=== PATIENT | female | born 1945 | race Caucasian/White ===

== ENCOUNTER → 2018-03-05 09:23 | Outpatient (POV) | payer MEDICARE, OTHER, SELFPAY ==
[2018-03-05 09:44] VITALS: BP 128/76; PULSE 114; RESP 18; TEMP 36.2; O2SAT 97
--- NOTE | 2018-03-05 12:17 | HMH.PMCON ---
Assessment and Plan (1) Postlaminectomy syndrome Current visit: Yes Status: Chronic Category: Medical Code(s): M96.1 - Postlaminectomy syndrome, not elsewhere classified (2) Degenerative disc disease, lumbar Current visit: Yes Status: Chronic Category: Medical Code(s): M51.36 - Other intervertebral disc degeneration, lumbar region (3) Sacroiliitis Current visit: Yes Status: Chronic Category: Medical Code(s): M46.1 - Sacroiliitis, not elsewhere classified - Assessment and plan all Dx Assessment and Plan for all problems:: We will plan a bilateral SI joint injection for this patient. I believe that this would be beneficial place to start due to the patient being on anticoagulation and her pain symptomology. Patient is currently on prednisone therapy we will decrease the amount of injective steroids. We will follow-up with this patient after bilateral joint injections in determine if this is helped improve her pain or if she is a candidate for other conservative treatments. Patient has tried and failed physical therapy, medications, anti-inflammatories. I will follow-up with this patient after her injections. This note was dictated using voice recognition software and may contain errors or omissions HPI - Data of Consult Consult date: 03/05/18 Requesting Physician: Cherrie Abbott APRN Primary Care Provider: Aurelia Remy APRN Family Provider: Aurelia Remy APRN - Consult Narrative Reason for consult: Lower back pain History of present illness: Ms. De Guzman is a 72 year old female who presents today for consultation on her low back pain. Patient is status post several back surgeries. Patient had back surgery by Dr. Trent last year. Patient also had a previous kyphoplasty. Patient is currently on Plavix. She rates her pain a 7 out of 10 today. Patient states that movement increases pain while there is not much that decreases it. Patient has tried and failed physical therapy along with medications. Patient is wanting to control her pain through conservative measures. CC: Cherrie Abbott APRN [facility] History I have reviewed the patient's past medical history: Yes Medical History: Reports:: Hyperlipidemia, Hypertension, Palpitations Denies:: Cancer, Diabetes Mellitus Type 1, Diabetes Mellitus Type 2, MRSA Other Surgeries: Yes: Appendectomy, Cardiac Catheterization, Hysterectomy-Total Amputation: No Fractures: No - *Social History Educational Level: Completed High School Smoking Status: Never smoker Alcohol Intake: never Occupational Status: retired Housing: house Household Members: none - Psychiatric History Expresses thoughts of harming self/others: None Suicide Plan Description: No Plan *Family Hx:: Hyperlipidemia, Hypertension Review of Systems - Review of Systems ROS General: no recent weight change, no fever, no sleep disturbances Respiratory: no cough, no shortness of air, no recurring pulmonary infections Cardiovascular/Peripheral Vascular: No chest pain, No palpitations, no edema, no shortness of breath. Gastrointestinal: no incontinence, normal bowel movements reported Genitourinary: no incontinence Musculoskeletal: Back pain, right SI joint pain, right leg pain Psychiatric: normal mood/ affect Neurological: Intermittent weakness in right lower extremity at times., [denies balance issues] Meds Home Medications Medication Instructions Recorded Confirmed Type Aspirin [Aspir 81] 81 mg PO DAILY 03/05/18 03/05/18 History Atorvastatin Calcium [Atorvastatin 20 mg PO DAILY 03/05/18 03/05/18 History 20mg Tab] Calcium Carbonate [Calcium] 600 mg PO DAILY 03/05/18 03/05/18 History Carvedilol [Carvedilol 25mg Tab] 25 mg PO DAILY 03/05/18 03/05/18 History Cholecalciferol (Vitamin D3) 5,000 unit PO DAILY 03/05/18 03/05/18 History [Vitamin D3] Clopidogrel Bisulfate [Plavix 75mg 75 mg PO DAILY 03/05/18 03/05/18 History Tab] Fludrocortison
--- NOTE | 2018-03-05 12:20 | P.CONS_ITS ---
Assessment and Plan (1) Postlaminectomy syndrome Current visit: Yes Status: Chronic Category: Medical Code(s): M96.1 - Postlaminectomy syndrome, not elsewhere classified (2) Degenerative disc disease, lumbar Current visit: Yes Status: Chronic Category: Medical Code(s): M51.36 - Other intervertebral disc degeneration, lumbar region (3) Sacroiliitis Current visit: Yes Status: Chronic Category: Medical Code(s): M46.1 - Sacroiliitis, not elsewhere classified - Assessment and plan all Dx Assessment and Plan for all problems:: We will plan a bilateral SI joint injection for this patient. I believe that this would be beneficial place to start due to the patient being on anticoagulation and her pain symptomology. Patient is currently on prednisone therapy we will decrease the amount of injective steroids. We will follow-up with this patient after bilateral joint injections in determine if this is helped improve her pain or if she is a candidate for other conservative treatments. Patient has tried and failed physical therapy, medications, anti- inflammatories. I will follow-up with this patient after her injections. This note was dictated using voice recognition software and may contain errors or omissions HPI - Data of Consult Consult date: 03/05/18 Requesting Physician: Cherrie Abbott APRN Primary Care Provider: Aurelia Remy APRN Family Provider: Aurelia Remy APRN - Consult Narrative Reason for consult: Lower back pain History of present illness: Ms. De Guzman is a 72 year old female who presents today for consultation on her low back pain. Patient is status post several back surgeries. Patient had back surgery by Dr. Trent last year. Patient also had a previous kyphoplasty. Patient is currently on Plavix. She rates her pain a 7 out of 10 today. Patient states that movement increases pain while there is not much that decreases it. Patient has tried and failed physical therapy along with medications. Patient is wanting to control her pain through conservative measures. CC: Cherrie Abbott APRN [facility] History I have reviewed the patient's past medical history: Yes Medical History: Reports:: Hyperlipidemia, Hypertension, Palpitations Denies:: Cancer, Diabetes Mellitus Type 1, Diabetes Mellitus Type 2, MRSA Other Surgeries: Yes: Appendectomy, Cardiac Catheterization, Hysterectomy-Total Amputation: No Fractures: No - *Social History Educational Level: Completed High School Smoking Status: Never smoker Alcohol Intake: never Occupational Status: retired Housing: house Household Members: none - Psychiatric History Expresses thoughts of harming self/others: None Suicide Plan Description: No Plan *Family Hx:: Hyperlipidemia, Hypertension Review of Systems - Review of Systems ROS General: no recent weight change, no fever, no sleep disturbances Respiratory: no cough, no shortness of air, no recurring pulmonary infections Cardiovascular/Peripheral Vascular: No chest pain, No palpitations, no edema, no shortness of breath. Gastrointestinal: no incontinence, normal bowel movements reported Genitourinary: no incontinence Musculoskeletal: Back pain, right SI joint pain, right leg pain Psychiatric: normal mood/ affect Neurological: Intermittent weakness in right lower extremity at times., [denies balance issues] Meds Home Medications Medication Instructions Recorded Confirmed Type Aspirin [Aspir 81] 81 mg PO DAILY 03/05/18 03/05/18 Histor
== END ==
PROVIDERS: Family Provider Nurse Practitioner Family; PCP Nurse Practitioner Family; Visit Provider Clinical Nurse Specialist Family Health
DX: M96.1 Postlaminectomy syndrome, not elsewhere classified (principal); M46.1 Sacroiliitis, not elsewhere classified
CPT/HCPCS: 99202

== ENCOUNTER → 2018-04-16 09:02 | Outpatient (POV) | payer MEDICARE, OTHER, SELFPAY ==
[2018-04-16 09:20] VITALS: BP 147/63; PULSE 53; RESP 20; O2SAT 96; BMI 31.3
--- NOTE | 2018-04-16 11:37 | HMH.PAINSOAP ---
[facility] Pain Management SOAP Note Subjective:: Patient is a pleasant 72-year-old white female who we have been treating for low back and bilateral SI joint pain. Patient had bilateral SI joint injection. Patient did not get any relief from this. Patient has had multiple back surgeries. Patient states that her pain at this time is in her low back and radiating down bilateral legs. Patient and I discussed potential lumbar epidural steroid injection I believe that this would be beneficial. Patient's tried and failed physical therapy, medications, anti-inflammatories. Patient and I did briefly discussed neuro stimulation if her lumbar epidural does not help with her pain. ROS General: no recent weight change, no fever, no sleep disturbances Respiratory: no cough, no shortness of air, no recurring pulmonary infections Cardiovascular/Peripheral Vascular: No chest pain, No palpitations, no edema, no shortness of breath. Gastrointestinal: no incontinence, normal bowel movements reported Genitourinary: no incontinence Musculoskeletal: Back pain, bilateral leg pain Psychiatric: normal mood/ affect Neurological: [denies weakness in extremities], [denies balance issues] Objective:: Physical Exam General: Alert and oriented x3, no acute distress, pleasant and cooperative, [on room air] Lungs: Resps E/U, Symmetrical chest expansion, Eyes: PERRL Musculoskeletal: Flexion and extension of lumbar spine somewhat guarded secondary to pain, deep tendon reflexes normal, strength in upper and lower extremities [5/5], [abnormal gait noted], positive straight leg raise test positive at 30? bilaterally Neurological: speech clear, hot patcher equal, no gross sensory deficits Assessment:: Degenerative disc disease of the lumbar spine with lumbar radiculopathy, postlaminectomy syndrome Plan:: We will schedule L4-L5 lumbar epidural steroid injection for this patient. I believe that this would be beneficial in helping identify her pain pattern. Patient and I did briefly discuss neuromodulation. We will follow-up with this if she does not get relief from this injection. Patient is on Plavix we will get permission for her to be off her anticoagulation therapy prior to her injection. This note was dictated using voice recognition software and may contain errors or omissions
--- NOTE | 2018-04-16 11:41 | P.CONS_ITS ---
[facility] Pain Management SOAP Note Subjective:: Patient is a pleasant 72-year-old white female who we have been treating for low back and bilateral SI joint pain. Patient had bilateral SI joint injection. Patient did not get any relief from this. Patient has had multiple back surgeries. Patient states that her pain at this time is in her low back and radiating down bilateral legs. Patient and I discussed potential lumbar epidural steroid injection I believe that this would be beneficial. Patient's tried and failed physical therapy, medications, anti-inflammatories. Patient and I did briefly discussed neuro stimulation if her lumbar epidural does not help with her pain. ROS General: no recent weight change, no fever, no sleep disturbances Respiratory: no cough, no shortness of air, no recurring pulmonary infections Cardiovascular/Peripheral Vascular: No chest pain, No palpitations, no edema, no shortness of breath. Gastrointestinal: no incontinence, normal bowel movements reported Genitourinary: no incontinence Musculoskeletal: Back pain, bilateral leg pain Psychiatric: normal mood/ affect Neurological: [denies weakness in extremities], [denies balance issues] Objective:: Physical Exam General: Alert and oriented x3, no acute distress, pleasant and cooperative, [ on room air] Lungs: Resps E/U, Symmetrical chest expansion, Eyes: PERRL Musculoskeletal: Flexion and extension of lumbar spine somewhat guarded secondary to pain, deep tendon reflexes normal, strength in upper and lower extremities [5/5], [abnormal gait noted], positive straight leg raise test positive at 30? 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 I believe that this would be beneficial in helping identify her pain pattern. Patient and I did briefly discuss neuromodulation. We will follow-up with this if she does not get relief from this injection. Patient is on Plavix we will get permission for her to be off her anticoagulation therapy prior to her injection. This note was dictated using voice recognition software and may contain errors or omissions
--- NOTE | 2018-04-19 13:31 | PC.PHONENOTE ---
Spoke with patient regarding her lumbar epidural steroid injection scheduled for may 11. Dr Luu faxed approval for pt to discontinue her plavix 7 days prior. Pt was advised to d/c her plavix after May 03 and resume medication May 12. Pt verbalized understanding and was encouraged to call back with any questions that may arise.
== END ==
PROVIDERS: Family Provider Nurse Practitioner Family; PCP Nurse Practitioner Family; Visit Provider Clinical Nurse Specialist Family Health
DX: M54.16 Radiculopathy, lumbar region (principal)
CPT/HCPCS: 99212

== ENCOUNTER → 2018-05-29 08:35 | Outpatient (CLI) | payer MEDICARE, OTHER, SELFPAY ==
[2018-05-29 09:05] LABS: Blood Urea Nitrogen 17 mg/dL (7-18); Creatinine,Serum 1.16 mg/dL (0.55-1.02); Estimated Glomerular Filt Rate 46 ml/min (>60); GFR (African American) 56 ML/MIN (>60)
--- NOTE | 2018-05-29 10:45 | CT_ITS ---
CT abdomen pelvis w con CLINICAL INDICATION: ITS.REASON: RLQ PAIN ORDERING PHYSICIAN: Aurelia Remy PATIENT AGE: 72 years COMPARISON: None TECHNIQUE: Axial images obtained with sagittal and coronal reformats. All CT scans at the facility use one or more dose reduction, viz: automated exposure control; ma/kV adjustment per patient size (including targeted exams where dose is matched to indication; i.e. head); or iterative reconstruction technique. PROCEDURE: Oral Contrast: Redicat IV Contrast: 75 mL is Isovue-370. FINDINGS: There are mild atelectatic changes in the lung bases. There is mild thickening of the pericardium posteriorly measuring up to 11 mm. There is trace right pleural effusion. Coronary artery calcifications The liver is unremarkable. There is splenomegaly at 16 cm. Hyperdensity is noted along the posterior wall the gallbladder suggesting cholelithiasis. The adrenal glands are unremarkable. Multiple calcific densities are present in the head of the pancreas and the uncinate process region and near the ampulla. This may be related to chronic pancreatitis. Partially calcified pancreatic lesion is included in the differential diagnosis. MRI of the pancreas without and with contrast may be of further value. No renal or ureteral calculi. No hilar cyst. No intestinal obstruction or free air. No evidence of diverticulitis. Air is a metallic density with a surrounding lucency in the region of the ascending colon and may represent an ingested foreign body. This measures approximate 1 cm. There is increased density of the abdominal wall fat inferior to the umbilicus and could be related to some underlying inflammatory changes. There is an old left superior and inferior pubic ramus fracture near the symphysis with some increased soft tissue density at this region probably related to scarring. Multiple interpedicular screws are present from L2 to S2. There is been multiple vertebral plasties with multiple wedge compression changes of the lower thoracic and lumbar spine. IMPRESSION: 1. Possible cholelithiasis. 2. Splenomegaly. 3. Coarse calcifications in the head of the pancreas near the uncinate process and could be related to chronic pancreatitis. A partially calcified pancreatic lesion is an additional consideration. Follow-up recommended to confirm stability. MRI may be of further value. 4. Increased soft tissue density within the abdominal wall fat inferior to the umbilicus which may be related to underlying inflammatory change
--- NOTE | 2018-05-29 11:23 | HMH.ITSHM ---
NOXAFIL 100 MG GABAPENTIN 100 MG HYDRALAZINE 25 ATORVASTATIN CLOPIDOREL 75 MG LASIX 40 MG PANTOPROZONE SOD 40 MG PREDNISONE 10 MG FLUDROCONTISONE POTASSIUM 10 MG 2 X DAY CIPOTLOXACIN 500 MG VITAMIN D 3 CALCIUM 600 MG ASPIRIN
== END ==
PROVIDERS: Family Provider Nurse Practitioner Family; PCP Nurse Practitioner Family; Visit Provider Nurse Practitioner Family
DX: R10.31 Right lower quadrant pain (principal)
CPT/HCPCS: 36415; 74177; 82565; 84520; Q9967

== ENCOUNTER → 2018-06-04 14:25 | Outpatient (POV) | payer MEDICARE, OTHER, SELFPAY ==
[2018-06-04 14:35] VITALS: BP 142/68; PULSE 74; RESP 18; O2SAT 98; BMI 37.8
--- NOTE | 2018-06-04 15:32 | HMH.PAINSOAP ---
[facility] Pain Management SOAP Note Subjective:: Patient is a pleasant 72-year-old white female who presents today after a lumbar epidural steroid injection. Patient states that she did not get any relief from this injection. Patient's tried other injections with no relief as well. Patient and I had discussed intrathecal pain pump at one time however she is not apt to the idea of having medication in her body. Patient would like to discuss oral medication for pain management. I discussed with her we do not do medication management. Patient and I then begin a discussion on neuro stimulation. Patient and I had a long discussion in regards to this I answered all of her questions. Patient is interested in this form of therapy. I believe it would be beneficial for her. Patient rates her pain at 8 out of 10 today. Mostly in her low back and bilateral legs. Patient is on Plavix however she does have permission to come off of it for her procedures. ROS General: no recent weight change, no fever, no sleep disturbances Respiratory: no cough, no shortness of air, no recurring pulmonary infections Cardiovascular/Peripheral Vascular: No chest pain, No palpitations, no edema, no shortness of breath. Gastrointestinal: no incontinence, normal bowel movements reported Genitourinary: no incontinence Musculoskeletal: Back pain, leg pain Psychiatric: normal mood/ affect Neurological: [denies weakness in extremities], [denies balance issues] Objective:: Physical Exam General: Alert and oriented x3, no acute distress, pleasant and cooperative, [on room air] Lungs: Resps E/U, Symmetrical chest expansion, Eyes: PERRL Musculoskeletal: Flexion and extension of lumbar spine somewhat guarded secondary to pain, deep tendon reflexes normal, strength in upper and lower extremities [5/5], [abnormal gait noted], positive straight leg raise test bilaterally at 30? Neurological: speech clear, toddler teacher equal, no gross sensory deficits Assessment:: Degenerative disc disease of lumbar spine with lumbar radiculopathy and postlaminectomy syndrome. Plan:: We will begin the process of setting the patient up for a neurostimulator trial. I believe given her symptoms at this will be beneficial. Patient is uninterested in intrathecal therapy at this time and I do not believe that long-term medication use will be beneficial for her. I answered the patient's questions and we discussed realistic goal setting along with the trialing and implantation process. I will follow-up with this patient after her trial. This note was dictated using voice recognition software and may contain errors or omissions
--- NOTE | 2018-06-04 15:36 | P.CONS_ITS ---
[facility] Pain Management SOAP Note Subjective:: Patient is a pleasant 72-year-old white female who presents today after a lumbar epidural steroid injection. Patient states that she did not get any relief from this injection. Patient's tried other injections with no relief as well. Patient and I had discussed intrathecal pain pump at one time however she is not apt to the idea of having medication in her body. Patient would like to discuss oral medication for pain management. I discussed with her we do not do medication management. Patient and I then begin a discussion on neuro stimulation. Patient and I had a long discussion in regards to this I answered all of her questions. Patient is interested in this form of therapy. I believe it would be beneficial for her. Patient rates her pain at 8 out of 10 today. Mostly in her low back and bilateral legs. Patient is on Plavix however she does have permission to come off of it for her procedures. ROS General: no recent weight change, no fever, no sleep disturbances Respiratory: no cough, no shortness of air, no recurring pulmonary infections Cardiovascular/Peripheral Vascular: No chest pain, No palpitations, no edema, no shortness of breath. Gastrointestinal: no incontinence, normal bowel movements reported Genitourinary: no incontinence Musculoskeletal: Back pain, leg pain Psychiatric: normal mood/ affect Neurological: [denies weakness in extremities], [denies balance issues] Objective:: Physical Exam General: Alert and oriented x3, no acute distress, pleasant and cooperative, [ on room air] Lungs: Resps E/U, Symmetrical chest expansion, Eyes: PERRL Musculoskeletal: Flexion and extension of lumbar spine somewhat guarded secondary to pain, deep tendon reflexes normal, strength in upper and lower extremities [5/5], [abnormal gait noted], positive straight leg raise test bilaterally at 30? 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 Plan:: We will begin the process of setting the patient up for a neurostimulator trial. I believe given her symptoms at this will be beneficial. Patient is uninterested in intrathecal therapy at this time and I do not believe that long- term medication use will be beneficial for her. I answered the patient's questions and we discussed realistic goal setting along with the trialing and implantation process. I will follow-up with this patient after her trial. This note was dictated using voice recognition software and may contain errors or omissions
== END ==
PROVIDERS: Family Provider Nurse Practitioner Family; PCP Nurse Practitioner Family; Visit Provider Clinical Nurse Specialist Family Health
DX: M54.16 Radiculopathy, lumbar region (principal)
CPT/HCPCS: 99212

== ENCOUNTER → 2018-06-11 07:37 | Outpatient (CLI) | payer MEDICARE, OTHER, SELFPAY ==
--- NOTE | 2018-06-11 08:30 | US_ITS ---
US abdomen limited History:Right-sided abdominal pain, history of gallstone Ordering Physician:Aurelia Remy Patient Age: 72 years Comparison:67 and (05/29/2018 Findings:The pancreas appears normal. The liver is normal in size and shows a few scattered areas of ill-defined increased echogenicity suggesting fatty infiltration. The gallbladder is normal in size showing a mildly thickened wall. There is a small partially calcified gallstone near the neck of the gallbladder. The common bile duct is normal caliber. Right Kidney measures 8.6 x 4.6 x 6.1 cm. There is a good cortical medullary junction with no hydronephrosis. :Impression:Cholelithiasis along with mild diffuse thickening gallbladder wall likely due to some degree of chronic cholecystitis.
== END ==
PROVIDERS: Family Provider Nurse Practitioner Family; PCP Nurse Practitioner Family; Visit Provider Nurse Practitioner Family
DX: R10.9 Unspecified abdominal pain (principal); K80.20 Calculus of gallbladder without cholecystitis without obstruction
CPT/HCPCS: 76705

== ENCOUNTER → 2018-07-03 08:30 | Outpatient (CLI) | payer MEDICARE, OTHER, SELFPAY ==
--- NOTE | 2018-07-03 08:32 | MR_ITS ---
MR abdomen wo con, MRCP HISTORY: Pancreatitis, abnormal abdomen CT with calcification in the head of the pancreas versus ductal calcification. Cholelithiasis ITS.REASON: ACUTE PANCREAITIS ORDERING PHYSICIAN: Arash Newman MD PATIENT AGE: 72 years Comparison: None TECHNIQUE: Standard multiplanar multiecho sequences are performed without contrast. MRCP reformatted images also generated and reviewed FINDINGS: Motion artifact somewhat obscures fine detail. Small stones are present within the gallbladder. No ductal dilatation. No common duct stones evident. Pancreatic duct is normal in size. There are some small punctate areas of increased T2 signal within the pancreatic head inferiorly in the region of the previously described calcifications suggesting small cystic areas. This is a question clinical significance. Recommend [address] follow-up to confirm stability. IMPRESSION: 1. Cholelithiasis. 2. No evidence of common bile duct or pancreatic duct stones, strictures, or dilatation. 3. Small cyst noted in the head of the pancreas in the region of the previously described calcification on the CT scan. This is nonspecific. [address] recommended without and with contrast with pancreatic protocol. Cystic pancreatic neoplasm is not excluded. This could also be sequela from prior pancreatitis.
[2018-07-03 11:30] LABS: Basophils % 0.7 % (0.1-2.0); Eosinophils # 0.1 K/mm3 (0.0-0.4); Eosinophils % 1.7 % (0.1-12.0); Hematocrit 37.7 % (37.0-47.0); Hemoglobin 11.7 g/dL (12.2-16.2); Lymphocytes # 1.2 K/mm3 (0.7-4.5); Lymphocytes % 18.4 K/mm3 (10-50); Mean Corpuscular Volume 80.7 fl (81-99); Mean Platelet Volume 6.7 fl (7.4-10.4); Monocytes # 0.5 K/mm3 (0.1-1.0); Monocytes % 7.6 % (1.7-9.3); Neutrophils # 4.6 K/mm3 (1.8-7.8); Neutrophils % 71.7 % (37.0-80.0); Platelet Count 208 K/mm3 (142-424); Red Blood Count 4.67 M/mm3 (4.20-5.40); Red Cell Distribution Width 18.8 % (11.5-17.5); White Blood Count 6.5 K/mm3 (4.8-10.8)
[2018-07-03 13:00] LABS: Alanine Aminotransferase 26 U/L (12-78); Albumin Level 3.4 gm/dL (3.4-5.0); Albumin/Globulin Ratio 1.4 (1.1-1.8); Alkaline Phosphatase 71 U/L (46-116); Anion Gap 6.4 mEq/L (5-15); Aspartate Amino Transferase 16 U/L (15-37); Bilirubin,Total 0.6 mg/dL (0.2-1.0); Blood Urea Nitrogen 19 mg/dL (7-18); Calcium 8.5 mg/dL (8.5-10.1); Carbon Dioxide 33 mmol/L (21.0-32.0); Chloride 108 mmol/L (98-107); Creatinine,Serum 1.02 mg/dL (0.55-1.02); Estimated Glomerular Filt Rate 53 ml/min (>60); GFR (African American) 64 ML/MIN (>60); Globulin 2.4 gm/dl (1.3-3.2); Glucose 93 mg/dL (74-106); Potassium 3.4 mmoL/L (3.5-5.1); Sodium 144 mmol/L (136-145); Total Protein,Serum 5.8 gm/dL (6.4-8.2)
== END ==
PROVIDERS: Family Provider Nurse Practitioner Family; PCP Nurse Practitioner Family; Visit Provider Surgery
DX: K86.1 Other chronic pancreatitis (principal)
CPT/HCPCS: 36415; 74181; 76376; 80053; 85025; 93005

== ENCOUNTER → 2018-07-31 10:23 | Outpatient (CLI) | payer MEDICARE, OTHER, SELFPAY ==
[2018-08-02 16:21] LABS: Histoplasma Gal'mannan Ag Ur <0.5 (<0.5 ng/mL)
== END ==
PROVIDERS: PCP Nurse Practitioner Family; Visit Provider Internal Medicine Infectious Disease
DX: B39.9 Histoplasmosis, unspecified (principal)
CPT/HCPCS: 87385

== ENCOUNTER → 2018-09-11 10:25 | Outpatient (POV) | payer MEDICARE, OTHER, SELFPAY ==
[2018-09-11 10:36] VITALS: BP 193/92; PULSE 64; RESP 18; O2SAT 94; BMI 30.5
--- NOTE | 2018-09-11 12:18 | P.CONS_ITS ---
[facility] Pain Management SOAP Note Subjective:: She is a pleasant 72-year-old white female who presents today for discussion in regards to a intrathecal pain pump. Patient had at first wanted to try a neurostimulator. However due to recent changes in her pain pattern she would like to try a intrathecal pain pump. Patient has extensive hardware in her back. Patient is not on any narcotic medication except for some hydrocodone she received after gallbladder surgery. Patient's tried and failed injections, physical therapy, medications. She rates her pain an 8 out of 10 today mostly in her low back. ROS General: no recent weight change, no fever, no sleep disturbances Respiratory: no cough, no shortness of air, no recurring pulmonary infections Cardiovascular/Peripheral Vascular: No chest pain, No palpitations, no edema, no shortness of breath. Gastrointestinal: no incontinence, normal bowel movements reported Genitourinary: no incontinence Musculoskeletal: Back pain, leg pain Psychiatric: normal mood/ affect, Neurological: [denies weakness in extremities], [denies balance issues] Objective:: Physical Exam General: Alert and oriented x3, no acute distress, pleasant and cooperative, [on room air] Lungs: Resps E/U, Symmetrical chest expansion, Eyes: PERRL Musculoskeletal: Flexion and extension of lumbar spine somewhat guarded secondary to pain, deep tendon reflexes normal, strength in upper and lower extremities [5/5], [abnormal gait noted] Neurological: speech clear, surface hydrologist equal, no gross sensory deficits Assessment:: Degenerative disc disease lumbar spine with lumbar radiculopathy, post laminectomy syndrome lumbar spine Plan:: We will set her up for psychological evaluation. If she is deemed appropriate we will set her up for intrathecal pain pump trial. This note was dictated using voice recognition software and may contain errors or omissions
== END ==
PROVIDERS: Family Provider Nurse Practitioner Family; PCP Nurse Practitioner Family; Visit Provider Clinical Nurse Specialist Family Health
DX: M51.16 Intervertebral disc disorders with radiculopathy, lumbar region (principal); M96.1 Postlaminectomy syndrome, not elsewhere classified
CPT/HCPCS: 99212

== ENCOUNTER → 2018-10-16 10:18 | Outpatient (POV) | payer MEDICARE, OTHER, SELFPAY ==
[2018-10-16 10:36] VITALS: BP 122/55; PULSE 70; RESP 18; O2SAT 98; BMI 30.5
--- NOTE | 2018-10-16 10:46 | HMH.PAINSOAP ---
[facility] Pain Management SOAP Note Subjective:: Patient is a pleasant 73-year-old white female who presents today for follow-up after her intrathecal pain pump trial. She states she got 90% relief of her pain symptoms and was much more functional. She had no itching and did very well. Patient states that most of her pain is in her low back and her legs. Patient is interested in pursuing a permanent implant. ROS General: no recent weight change, no fever, no sleep disturbances Respiratory: no cough, no shortness of air, no recurring pulmonary infections Cardiovascular/Peripheral Vascular: No chest pain, No palpitations, no edema, no shortness of breath. Gastrointestinal: no incontinence, normal bowel movements reported Genitourinary: no incontinence Musculoskeletal: Back pain, leg pain Psychiatric: normal mood/ affect Neurological: [denies weakness in extremities], [denies balance issues] Objective:: Physical Exam General: Alert and oriented x3, no acute distress, pleasant and cooperative, [on room air] Lungs: Resps E/U, Symmetrical chest expansion, Eyes: PERRL Musculoskeletal: Flexion and extension of lumbar spine somewhat guarded secondary to pain, deep tendon reflexes normal, strength in upper and lower extremities [5/5], [abnormal gait noted] Neurological: speech clear, legal service specialist equal, no gross sensory deficits Assessment:: Degenerative disc disease lumbar spine with lumbar radiculopathy symptoms and post laminectomy syndrome of the lumbar spine Plan:: The patient has a stress test on Monday that she is getting complete prior to scheduling her. Patient is on Plavix we do have permission for her to come off her procedures. Patient is aware of this. Patient feels that she can be much more functional with this intrathecal pain pump. Patient's catheter was placed at the T12 vertebral body. I will follow-up with her after her implantation. This note was dictated using voice recognition software and may contain errors or omissions
== END ==
PROVIDERS: PCP Nurse Practitioner Family; Visit Provider Clinical Nurse Specialist Family Health
DX: M51.16 Intervertebral disc disorders with radiculopathy, lumbar region (principal); M96.1 Postlaminectomy syndrome, not elsewhere classified
CPT/HCPCS: 99213

== ENCOUNTER → 2019-01-08 08:28 | Outpatient (CLI) | payer MEDICARE, OTHER, SELFPAY ==
[2019-01-08 08:58] LABS: Blood Urea Nitrogen 38 mg/dL (7-18); Creatinine,Serum 1.65 mg/dL (0.55-1.02); Estimated Glomerular Filt Rate 30 ml/min (>60); GFR (African American) 37 ML/MIN (>60)
== END ==
PROVIDERS: Visit Provider Surgery
DX: K86.1 Other chronic pancreatitis (principal)
CPT/HCPCS: 36415; 82565; 84520

== ENCOUNTER → 2019-01-08 09:49 | Outpatient (POV) | payer MEDICARE, OTHER, SELFPAY ==
[2019-01-08 10:12] VITALS: BP 103/66; PULSE 70; RESP 18; O2SAT 99; BMI 31.3
--- NOTE | 2019-01-08 11:27 | P.PCN_ITS ---
- Procedure Date: 01/08/19 Time: 10:30 Anesthesiologist:: Cherrie Abbott APRN Complications:: None Pre-procedure Diagnosis:: Degenerative disc disease lumbar spine with lumbar radiculopathy Post-procedure Diagnosis:: Same Indications for Procedure:: Patient is a very pleasant 73-year-old white female who presents today for follow-up after intrathecal pain pump implant. She is doing extremely well at this time however she has recently broken her foot. Patient is being taken care of with this however her back pain is minimal she rates it a 3 out of 10. Patient currently on morphine 0.25 mg a day. We will set of her PTC. There are no sign symptoms of infection. We will keep her stitches in for 1 more week. ROS General: no recent weight change, no fever, no sleep disturbances Respiratory: no cough, no shortness of air, no recurring pulmonary infections Cardiovascular/Peripheral Vascular: No chest pain, No palpitations, no edema, no shortness of breath. Gastrointestinal: no incontinence, normal bowel movements reported Genitourinary: no incontinence Musculoskeletal: Back pain at times, foot pain Psychiatric: normal mood/ affect Neurological: [denies weakness in extremities], [denies balance issues] Procedure Details:: Informed consent was obtained and the risk and benefits of the procedure were explained to the patient. The patient was taken to the procedure room where noninvasive monitoring was placed including noninvasive blood pressure cuff and pulse oximeter. Patient's pump was interrogated. The infusion rate was left at 0.25 mg/day and her PTC was started on at 0.02 mg every 6 hours as needed. The patient tolerated the procedure well. Plan and Disposition:: We will follow-up with the patient in 1 week and reassess her symptoms at that time. Patient is going to continue with her carbide tool maker in regards to her foot. We will remove her stitches at her next visit. Dr. Tijerina has reviewed this note and agrees with this plan of care. This note was dictated using voice recognition software and may contain errors or omissions
== END ==
PROVIDERS: PCP Nurse Practitioner Family; Visit Provider Clinical Nurse Specialist Family Health
DX: M51.16 Intervertebral disc disorders with radiculopathy, lumbar region (principal)
CPT/HCPCS: 36415; 62368; 82565; 84520

== ENCOUNTER 2019-01-24 10:43 | Inpatient (IN) ==
--- NOTE | 2019-01-24 10:39 | Emergency Department Note ---
ED Disposition Clinical Impression: Acute renal failure, Bladder outlet obstruction, Hyperkalemia Disposition: Admitted as Observation Condition on Discharge: Good Time of Disposition: 12:12 - Critical Care Critical Care Time: No Attestation: On , the high probability of a clinically significant, sudden or life threatening deterioration of the following system(s) required my full and direct attention, intervention and personal management. The time I documented below is in addition to time spent performing reported procedures but includes the following listed in this critical care notation. Medical Decision Making - Armani Inquiry Pt receiving controlled substance: No Armani was queried for this patient: No Vital Signs: 01/24/19 10:26 01/24/19 10:45 01/24/19 12:14 Temperature 97.7 F 97.7 F Temperature Source Rectal Rectal Pulse Rate Pulse Rate [Right Brachial] 121 H 121 H 82 Respiratory Rate 19 19 Blood Pressure Blood Pressure [Right Arm] 109/47 L 109/47 L 121/56 L Blood Pressure Mean [Right Arm] 67 67 77 Blood Pressure Source Blood Pressure Source [Right Arm] Automatic Cuff Automatic Cuff Automatic Cuff Blood Pressure Position Blood Pressure Position [Right Arm] Sitting 02 Sat by Pulse Oximetry 98 98 95 Oxygen Delivery Method Room Air Room Air 01/24/19 13:02 01/24/19 13:08 01/24/19 13:25 Temperature 97.7 F 98.7 F Temperature Source Rectal Oral Pulse Rate 100 H Pulse Rate [Right Brachial] 74 Respiratory Rate 18 18 Blood Pressure 100/56 L Blood Pressure [Right Arm] 98/58 L Blood Pressure Mean [Right Arm] 71 Blood Pressure Source Automatic Cuff Blood Pressure Source [Right Arm] Manual Cuff/ Auscultation Blood Pressure Position Sitting Blood Pressure Position [Right Arm] Supine 02 Sat by Pulse Oximetry 96 Oxygen Delivery Method Room Air Room Air Room Air - Lab Data Lab results reviewed: Yes: I reviewed the patient's lab results. Lab Results 01/24/19 10:19: POC Glucose 115 H 01/24/19 10:20: WBC 9.7, RBC 3.43 L, Hgb 10.3 L, Hct 31.9 L, MCV 93.0, MCH 29.9, MCHC 32.2, RDW 15.9, Plt Count 256, MPV 7.4, Neut % (Auto) 78.7, Lymph % (Auto) 13.1, [place] % (Auto) 4.3, Eos % (Auto) 3.3, Baso % (Auto) 0.5, Neut # (Auto) 7.7, Lymph # (Auto) 1.3, [place] # (Auto) 0.4, Eos # (Auto) 0.3, Baso # (Auto) 0.1 01/24/19 10:20: Sodium 136, Potassium 5.9 H, Chloride 103, Carbon Dioxide 22, Anion Gap 16.9 H, BUN 95 H, Creatinine 4.92 H, Estimated Creat Clear 11, Estimated GFR 9 L*, Est GFR ( Amer) 10 L*, Glucose 102, Calcium 8.6, Magnesium 2.3 H, Total Bilirubin 0.8, AST 19, ALT 19, Alkaline Phosphatase 134 H , Total Protein 5.9 L, Albumin 2.6 L, Globulin 3.3 H, Albumin/Globulin Ratio 0.8 L 01/24/19 10:20: Lactate 0.8 01/24/19 10:34: Urine Color Yellow, Urine Appearance Clear, Urine pH 6.0, Ur Specific [place] <= 1.005, Urine Protein Negative, Urine Glucose (UA) Negative, Urine Ketones Negative, Urine Blood 2+, Urine Nitrate Negative, Urine Bilirubin Negative, Urine Urobilinogen 0.2, Ur Leukocyte Esterase Negative, Urine RBC 5- 10, Urine WBC None, Urine Bacteria 1+ Result diagrams: 01/27/19 06:35 01/27/19 06:35 Orders (Tests/Meds): ED MEDICATIONS Discontinued Medications Generic Name Dose Route Start Last Admin Trade Name Freq PRN Reason Stop Dose Admin Acetaminophen 650 mg 01/24/19 13:32 Acetaminophen 325mg Tab PO 02/23/19 13:31 Q4HP PRN As Needed for Fever or Pain Hydrocodone Bitart/Acetaminophen 1 tab 01/25/19 15:36 01/28/19 10:55 Boswell 5/325mg Tablet PO 02/24/19 15:35 1 tab Q4HP PRN Administration Moderate Pain Amiodarone HCl 200 mg 01/26/19 09:00 01/28/19 08:43 Cordarone 200mg Tablet PO 02/25/19 08:59 200 mg DAILY KIM Administration Aspirin 81 mg 01/25/19 09:00 01/28/19 08:44 Aspirin 81mg Enteric Coated Tablet PO 02/24/19 08:59 81 mg DAILY KIM Administration Atorvastatin Calcium 20 mg 01/25/19 09:00 01/28/19 08:44 Lipitor 20mg Tablet PO 02/24/19 08:59 20 mg DAILY KIM Administration Carvedilol 25 mg 01/25/19 09:00 01/25/19 09:51 Coreg 25mg Tablet PO 02/24/19 08:59 25 mg DAILY KIM Administration Carvedilol 12.5 mg 01/26/19 09:00 01/28/19 08:44 Coreg 12.5mg Tablet PO 02/25/19 08:59 12.5 mg BID KIM Administration Clopidogrel Bisulfate 75 mg 01/25/19 09:00 01/28/19 08:44 Plavix 75mg Tablet PO 02/24/19 08:59 75 mg DAILY KIM Administration Fludrocortisone Acetate 0.1 mg 01/25/19 09:00 01/28/19 08:44 Florinef 0.1mg Tablet PO 02/24/19 08:59 0.1 mg DAILY KIM Administration Furosemide 40 mg 01/24/19 13:32 Lasix 40mg Tablet PO 02/23/19 13:31 NEEDED PRN fluid Gabapentin 600 mg 01/24/19 13:32 01/25/19 13:17 Neurontin 600mg Tablet PO 02/23/19 13:31 600 mg TID KIM Administration Gabapentin 800 mg 01/25/19 21:00 01/28/19 08:44 Neurontin 400mg Capsule PO 02/24/19 20:59 800 mg TID KIM Administration Hydralazine HCl 25 mg 01/24/19 21:00 Hydralazine Hcl 25mg Tablet PO 02/23/19 20:59 BID KIM Levofloxacin/Dextrose 750 mg in 150 mls @ 100 mls/hr 01/24/19 13:45 01/24/19 15:04 Levofloxacin 750mg/150ml Premix IV 01/24/19 15:14 100 mls/hr ONCE ONE Administration Protocol Levofloxacin/Dextrose 500 mg in 100 mls @ 100 mls/hr 01/26/19 11:00 Levaquin 500mg/100ml Premix IV 02/09/19 10:59 Q48H KIM Protocol Sodium Chloride 1,000 mls @ 100 mls/hr 01/24/19 14:30 01/28/19 08:43 Sod Chlor 0.9% 1000ml Bag IV 02/23/19 14:29 100 mls/hr .Q10H KIM Administration Levofloxacin/Dextrose 500 mg in 100 mls @ 100 mls/hr 01/25/19 17:45 01/25/19 18:31 Levaquin 500mg/100ml Premix IV 02/08/19 17:44 100 mls/hr Q48H KIM Administration Protocol Levofloxacin/Dextrose 500 mg in 100 mls @ 100 mls/hr 01/27/19 18:00 Levaquin 500mg/100ml Premix IV 02/10/19 17:59 Q48H KIM Protocol Levofloxacin/Dextrose 500 mg in 100 mls @ 100 mls/hr 01/27/19 18:00 01/27/19 17:26 Levaquin 500mg/100ml Premix IV 02/10/19 17:59 100 mls/hr Q24H KIM Administration Protocol Lactulose 20 gm 01/25/19 15:36 Chronulac 20gm/30ml Udc PO 02/24/19 15:35 DAILYP PRN Constipation Levothyroxine Sodium 25 mcg 01/25/19 09:00 01/28/19 08:44 Synthroid 25mcg (0.025mg) Tablet PO 02/24/19 08:59 25 mcg DAILY KIM Administration Lisinopril 5 mg 01/25/19 09:00 Zestril 5mg Tablet PO 02/24/19 08:59 DAILY KIM Multivitamins 1 each 01/26/19 09:00 01/28/19 08:44 Multi-Vitamin Plain PO 02/25/19 08:59 1 each DAILY KIM Administration Pt's Own Med 5 mg 01/25/19 21:00 01/28/19 08:43 Apixaban [Eliquis] 5 PO 02/24/19 20:59 5 mg Mg Tab BID KIM Administration Ondansetron HCl 4 mg 01/25/19 16:00 01/26/19 22:44 Zofran 4mg Odt SL 02/24/19 15:59 4 mg Q6HP PRN Administration Nausea And Vomiting Pantoprazole Sodium 40 mg 01/26/19 09:00 01/28/19 08:45 Protonix 40mg Tablet PO 02/25/19 08:59 40 mg DAILY KIM Administration Prednisone 10 mg 01/25/19 09:00 01/28/19 08:45 Deltasone 10mg Tablet PO 02/24/19 08:59 10 mg DAILY KIM Administration Senna/Docusate Sodium 1 tab 01/25/19 21:00 01/28/19 08:45 Senokot-S Tablet PO 02/24/19 20:59 1 tab BID KIM Administration Sodium Chloride 10 ml 01/24/19 10:46 Saline Flush 10ml Syringe IV 02/23/19 10:45 NEEDED PRN Maintain IV Site Sodium Chloride 10 ml 01/24/19 13:32 Saline Flush 10ml Syringe IV 02/23/19 10:45 NEEDED PRN Maintain IV Site Sodium Chloride 10 ml 01/24/19 14:30 Saline Flush 10ml Syringe IV 02/23/19 14:29 NEEDED PRN Maintain IV Site Sodium Chloride 3 ml 01/26/19 02:30 01/26/19 09:36 Sodium Chloride 3% 15ml Neb IH 02/25/19 02:29 3 ml ONCE PRN Administration INDUCE SPUTUM COLLECTION ORDERS Category Date Time Status Blood Culture Stat Micro 01/24/19 10:20 Results General Adult HPI - General Chief complaint: Altered Mental Status Stated complaint: ams Time Seen by Provider: 01/24/19 10:36 Mode of Arrival: EMS Limitations: No Limitations Description of Symptoms (Recalled from ER Triage Doc. by RN): brought in for evaluation of altered mental status. noted that patient hasn't voided since last night and answers all questions appropriately with a gcs of 15. nih 0. left lower extremity external fixator in place for s/p surgical repair of lle. pt is in me for rehab and dressings for this. normally independent at home - Related Data Home Medications Medication Instructions Recorded Confirmed RX: Aspirin [Aspir 81] 81 mg PO BID 03/05/18 01/25/19 RX: Atorvastatin Calcium 20 mg PO HS 03/05/18 01/25/19 [Atorvastatin 20mg Tab] RX: Calcium Carbonate [Calcium] 600 mg PO DAILY 03/05/18 01/24/19 RX: Carvedilol [Carvedilol 25mg 25 mg PO BID 03/05/18 01/25/19 Tab] RX: Clopidogrel Bisulfate [Plavix 75 mg PO DAILY 03/05/18 01/24/19 75mg Tab] RX: Fludrocortisone Acetate 0.1 mg PO HS 03/05/18 01/25/19 [Florinef 0.1mg tablet] RX: Furosemide [Furosemide 40MG 40 mg PO BID 03/05/18 01/25/19 tAB] RX: Hydralazine HCl [Hydralazine 25 mg PO BID 03/05/18 01/24/19 HCl 25mg Tablet] RX: predniSONE [Deltasone 10mg 10 mg PO DAILY 03/05/18 01/24/19 tablet] RX: Levothyroxine Sodium 25 mcg PO DAILY 09/11/18 01/24/19 [Levothyroxine 25mcg (0.025mg) Tab] RX: Lisinopril [Lisinopril 5mg 5 mg PO DAILY 10/05/18 01/24/19 Tablet] RX: Acetaminophen [Acetaminophen 1,000 mg PO Q6HP PRN 01/25/19 01/25/19 Extra Strength] RX: Amiodarone HCl [Cordarone 200 mg PO DAILY 01/25/19 01/25/19 200mg tablet] RX: Apixaban [Eliquis] 5 mg PO BID 01/25/19 01/25/19 RX: Ferrous Sulfate [Ferrousul] 325 mg PO DAILY 01/25/19 01/25/19 RX: Gabapentin 800 mg PO TID 01/25/19 01/25/19 RX: Hydrocod/Acet 5/325 mg [[place] 1 tab PO Q4HP PRN 01/25/19 01/25/19 5/325mg tablet] RX: Lactulose [Lactulose 20gm/30ml 20 gm PO DAILYP PRN 01/25/19 01/25/19 Oral Soln] RX: Multivitamin [One Daily] 1 each PO DAILY 01/25/19 01/25/19 RX: Ondansetron HCl [Zofran 4mg 4 mg PO Q6HP PRN 01/25/19 01/25/19 Tab] RX: Pantoprazole Sodium [Protonix 40 mg PO DAILY 01/25/19 01/25/19 40mg tablet] RX: Sennosides/Docusate Sodium 1 each PO BID 01/25/19 01/25/19 [Senna Plus Tablet] Previous Rx's Medication Instructions Recorded levoFLOXacin [Levaquin 500mg 500 mg PO DAILY #7 tab 01/28/19 tab] Allergies Allergy/AdvReac Type Severity Reaction Status Date / Time No Known Allergies Allergy Verified 12/26/18 08:52 [facility] History - Hepatitis A Screen Drug use history?: No High risk sexual behaviors?: No History of sexually transmitted infection?: No Currently employed?: No Childcare worker?: No Do you have indoor plumbing?: Yes Do you have electricity?: Yes Attestation statement:: This patient has been screened for Hepatitis A risk factors. I have reviewed the patient's past medical history: Yes Medical History: Reports:: Coronary Artery Disease, Gastroesophageal Reflux Disease(GERD), Hyperlipidemia, Hypertension, Palpitations Denies:: Cancer, Diabetes Mellitus Type 1, Diabetes Mellitus Type 2, Internal Pacemaker, MRSA, Seizures Other Medical History: Denies: Blood Transfusion Reaction Comment: Illness-chronic back pain, hypertension hyperlipidemia Other Surgeries: Yes: Appendectomy, Cardiac Catheterization, Cholecystectomy, Hysterectomy-Total, Other (back surgery x5, right ankle x3). No: Pacemaker Amputation: No Fractures: Yes Comment: Operations-cholectomy, appendectomy, hysterectomy cardiac cath, lumbar laminectomy - Social History Smoking Status: Never smoker Alcohol Intake: never Substance Use Type: denies use Occupational Status: retired Housing: house Household Members: none - Psychiatric History Expresses thoughts of harming self/others: None Suicide Plan Description: No Plan Family Hx:: Hyperlipidemia, Hypertension ROS Obtained: Yes All systems reviewed & no additional complaints - Constitutional Constitutional: Reports system reviewed and no additional complaints, except as docu, Denies chills, Denies fever(s) - Eyes Eyes: Reports system reviewed and no additional complaints, except as docu, Denies change in vision - ENT Ears, Nose, Mouth, and Throat: Reports system reviewed and no additional complaints, except as docu, Denies sore throat, Denies throat swelling - Cardiovascular Cardiovascular: Denies chest pain, Denies chest pain at rest, Denies chest pain with activity, Denies dyspnea, Denies dyspnea on exertion - Respiratory Respiratory: Yes system reviewed and no additional complaints, except as docu, No chest congestion, No cough, No dyspnea on exertion - Gastrointestinal Gastrointestingal: Reports: system reviewed and no additional complaints, except as docu, abdominal pain, nausea. Denies: diarrhea, vomiting - Genitourinary Male Genitourinary: Reports system reviewed and no additional complaints, except as docu Female Genitourinary: Reports pelvic pain (severe retention) - Musculoskeletal Musculoskeletal: Reports system reviewed and no additional complaints, except as docu, Reports muscle aches - Integumentary/Breasts Skin/Breast: Reports system reviewed and no additional complaints, except as docu, Reports wounds - Neurologic Neurologic: Reports system reviewed and no additional complaints, except as docu, Reports seizure-like activity, Denies weakness - Endocrine Endocrine: Reports system reviewed and no additional complaints, except as docu Physical Exam - General General appearance: alert, in no apparent distress - Head Head exam: atraumatic, normocephalic, normal inspection - Eye Eye exam: Present: normal appearance, PERRL, EOMI - ENT ENT exam: Present: normal exam, normal oropharynx, mucous membranes moist, TM's normal bilaterally, normal external ear exam - Neck Neck exam: Present: normal inspection, full ROM, trachea midline. Absent: meningismus, lymphadenopathy - Chest Chest inspection: Present: normal inspection, symmetric chest wall rise. Absent: tenderness - Respiratory Respiratory exam: Present: normal lung sounds bilaterally. Absent: respiratory distress - Cardiovascular Cardiovascular exam: Present: regular rate, normal rhythm - Abdominal Exam Abdominal exam: Present: soft, distention, tenderness. Absent: guarding, rebound, rigidity - Extremities Exam Extremities exam: Present: other - Back Exam Back exam: Present: normal inspection. Absent: tenderness - Neurological Exam Neurological exam: Present: alert, other (here in ED yes) - Psychiatric Psychiatric exam: Absent: flat affect - Skin Skin exam: Present: warm, dry, other (ex fix on left tib fib, surgical R patellar)
[2019-01-24 10:42] LABS: Microscopic, Urine URINE MICROSCOPIC (MICROSCOPIC)
[2019-01-24 10:44] LABS: Appearance,Urine CLEAR (Clear); Bilirubin,Urine Negative (Negative); Blood, Urine 2+ (Negative); Color,Urine YELLOW (Yellow); Glucose,Urine (UA) Negative (Negative); Ketones,Urine Negative (Negative); Leukocyte Esterase,Urine Negative (Negative); Protein,Urine Negative (Negative); Specific Gravity, Urine <= 1.005 (1.005-1.030); Urobilinogen,Urine 0.2 EU/dl (0.2)
[2019-01-24 10:49] LABS: Basophils # 0.1 K/mm3 (0-0.2); Basophils % 0.5 % (0.1-2.0); Eosinophils # 0.3 K/mm3 (0.0-0.4); Eosinophils % 3.3 % (0.1-12.0); Hematocrit 31.9 % (37.0-47.0); Hemoglobin 10.3 g/dL (12.2-16.2); Lymphocytes # 1.3 K/mm3 (0.7-4.5); Lymphocytes % 13.1 % (10-50); Mean Corpuscular HGB Conc 32.2 g/dL (31.8-35.4); Mean Corpuscular Hemoglobin 29.9 pg (27.0-31.2); Mean Platelet Volume 7.4 fl (7.4-10.4); Monocytes # 0.4 K/mm3 (0.1-1.0); Monocytes % 4.3 % (1.7-9.3); Neutrophils # 7.7 K/mm3 (1.8-7.8); Neutrophils % 78.7 % (37.0-80.0); Platelet Count 256 K/mm3 (142-424); Red Blood Count 3.43 M/mm3 (4.20-5.40); Red Cell Distribution Width 15.9 % (11.5-17.5); White Blood Count 9.7 K/mm3 (4.8-10.8)
[2019-01-24 10:53] LABS: Bacteria,Urine 1+ /lpf
[2019-01-24 11:17] LABS: Albumin Level 2.6 gm/dL (3.4-5.0); Albumin/Globulin Ratio 0.8 (1.1-1.8); Anion Gap 16.9 mEq/L (5-15); Bilirubin,Total 0.8 mg/dL (0.2-1.0); Calcium 8.6 mg/dL (8.5-10.1); Globulin 3.3 gm/dl (1.3-3.2); Potassium 5.9 mmoL/L (3.5-5.1); Total Protein,Serum 5.9 gm/dL (6.4-8.2)
--- NOTE | 2019-01-24 17:09 | History & Physical Report ---
*Admission Date: 01/24/19 *Chief complaint: confusion, weakness *History of present illness: 73 year old female who recently had left ankle repair with placement of external fixator following back to back falls which also resulted in right patellar fracture/laceration who has been at [facility] for rehab was transported to [facility] for evaluation of confusion. Patient reports she has not been able to urinate for 2 days. Denies any fevers, abdominal pain, or cough. States "I told them I can't go on the bed mak." Daughter reports right sided weakness at halfway this morning. In the ED, she was found to have an extremely distended bladder with 2 liters of output. Labs showed ARF with creatinine around 5 and hyperkalemia. CXR showed pneumonia. UA was suspicious for UTI. Patient was admitted for hydration and further evaluation. [facility] History I have reviewed the patient's past medical history: Yes Medical History: Reports:: Coronary Artery Disease, Gastroesophageal Reflux Disease(GERD), Hyperlipidemia, Hypertension, Palpitations Denies:: Cancer, Diabetes Mellitus Type 1, Diabetes Mellitus Type 2, Internal Pacemaker, MRSA, Seizures *Have you ever received a pneumonia vaccine?: Yes *Have you received a flu vaccine this season?: Yes Other Medical History: Denies: Blood Transfusion Reaction Other Surgeries: Yes: Appendectomy, Cardiac Catheterization, Cholecystectomy, Hysterectomy-Total, Other (back surgery x5, right ankle x3). No: Pacemaker Amputation: No Fractures: Yes - *Social History Educational Level: Completed High School Smoking Status: Never smoker Alcohol Intake: never Substance Use Type: denies use *Occupational Status:: retired Housing: house Household Members: none *Travel in the last 8 weeks: None - Psychiatric History Expresses thoughts of harming self/others: None Suicide Plan Description: No Plan Family Hx:: Hyperlipidemia, Hypertension Review of Systems - Review of Systems Review of systems:: pertinent systems reviewed and negative unless documented below - Constitutional Reports malaise, Reports weakness - *Genitourinary Reports other Comments: unable to urinate - *Neurologic Reports confusion, Reports seizure-like activity, Reports weakness Meds Home Medications Medication Instructions Recorded Confirmed Type Aspirin [Aspir 81] 81 mg PO DAILY 03/05/18 01/24/19 History Atorvastatin Calcium [Atorvastatin 20 mg PO DAILY 03/05/18 01/24/19 History 20mg Tab] Calcium Carbonate [Calcium] 600 mg PO DAILY 03/05/18 01/24/19 History Carvedilol [Carvedilol 25mg Tab] 25 mg PO DAILY 03/05/18 01/24/19 History Cholecalciferol (Vitamin D3) 5,000 unit PO DAILY 03/05/18 01/24/19 History [Vitamin D3] Clopidogrel Bisulfate [Plavix 75mg 75 mg PO DAILY 03/05/18 01/24/19 History Tab] Fludrocortisone Acetate [Florinef 0.1 mg PO DAILY 03/05/18 01/24/19 History 0.1mg tablet] Furosemide [Furosemide 40MG tAB] 40 mg PO NEEDED PRN 03/05/18 01/24/19 History Gabapentin [Neurontin 600mg 600 mg PO TID 03/05/18 01/24/19 History tablet] Hydralazine HCl [Hydralazine HCl 25 mg PO BID 03/05/18 01/24/19 History 25mg Tablet] Potassium Chloride [Micro-K 10mEq 10 meq PO BID 03/05/18 01/24/19 History cap] predniSONE [Deltasone 10mg 10 mg PO DAILY 03/05/18 01/24/19 History tablet] Levothyroxine Sodium 25 mcg PO DAILY 09/11/18 01/24/19 History [Levothyroxine 25mcg (0.025mg) Tab] Lisinopril [Lisinopril 5mg Tablet] 5 mg PO DAILY 10/05/18 01/24/19 History Allergies Allergy/AdvReac Type Severity Reaction Status Date / Time No Known Allergies Allergy Verified 12/26/18 08:52 Exam Vital signs and Labs for Last 24 Hours: Temp Pulse Resp BP Pulse Ox 98.7 F 72 16 100/60 L 94 L 01/24/19 15:47 01/24/19 15:47 01/24/19 15:47 01/24/19 15:47 01/24/19 15:47 Laboratory Results - last 24 hr 01/24/19 10:19: POC Glucose 115 H 01/24/19 10:20: WBC 9.7, RBC 3.43 L, Hgb 10.3 L, Hct 31.9 L, MCV 93.0, MCH 29.9, MCHC 32.2, RDW 15.9, Plt Count 256, MPV 7.4, Neut % (Auto) 78.7, Lymph % (Auto) 13.1, [place] % (Auto) 4.3, Eos % (Auto) 3.3, Baso % (Auto) 0.5, Neut # (Auto) 7.7, Lymph # (Auto) 1.3, [place] # (Auto) 0.4, Eos # (Auto) 0.3, Baso # (Auto) 0.1 01/24/19 10:20: Sodium 136, Potassium 5.9 H, Chloride 103, Carbon Dioxide 22, Anion Gap 16.9 H, BUN 95 H, Creatinine 4.92 H, Estimated Creat Clear 11, Estimated GFR 9 L*, Est GFR ( Amer) 10 L*, Glucose 102, Calcium 8.6, Magnesium 2.3 H, Total Bilirubin 0.8, AST 19, ALT 19, Alkaline Phosphatase 134 H , Total Protein 5.9 L, Albumin 2.6 L, Globulin 3.3 H, Albumin/Globulin Ratio 0.8 L 01/24/19 10:20: Lactate 0.8 01/24/19 10:34: Urine Color Yellow, Urine Appearance Clear, Urine pH 6.0, Ur Specific [place] <= 1.005, Urine Protein Negative, Urine Glucose (UA) Negative, Urine Ketones Negative, Urine Blood 2+, Urine Nitrate Negative, Urine Bilirubin Negative, Urine Urobilinogen 0.2, Ur Leukocyte Esterase Negative, Urine RBC 5- 10, Urine WBC None, Urine Bacteria 1+ I & O for Last 24 hours: Intake & Output 01/22/19 01/23/19 01/24/19 01/25/19 11:59 11:59 11:59 11:59 Weight 150 lb 196 lb 1 oz Narrative: Alert and oriented x3 with some confusion. Slight weakness of right upper extremity. No arm drift. No facial droop. Difficult to assess strength in LE due to external fixator. Rate and rhythm regular. Lung sounds clear and equal. Abdomen soft and nondistended, suprapubic tenderness. No LE edema. Mucous membranes dry. Skin pale, warm and dry. Assessment and Plan (1) HCAP (healthcare-associated pneumonia) Current visit: Yes Status: Acute Category: Medical Code(s): J18.9 - Pneumonia, unspecified organism (2) Acute renal failure Current visit: Yes Status: Acute Category: Medical Code(s): N17.9 - Acute kidney failure, unspecified (3) Bladder outlet obstruction Current visit: Yes Status: Acute Category: Medical Code(s): N32.0 - Bladder-neck obstruction (4) Hyperkalemia Current visit: Yes Status: Acute Category: Medical Code(s): E87.5 - Hyperkalemia - Assessment and plan all Dx Assessment and Plan for all problems:: Aggressive hydration with IVF's. Treat with levaquin for pneumonia and UTI coverage. Blood and urine cultures pending. Recheck labs in the am.
[2019-01-25 06:22] LABS: Basophils % 0.1 % (0.1-2.0); Eosinophils # 0.1 K/mm3 (0.0-0.4); Eosinophils % 1.7 % (0.1-12.0); Hematocrit 28.4 % (37.0-47.0); Lymphocytes # 0.9 K/mm3 (0.7-4.5); Mean Corpuscular Hemoglobin 29.6 pg (27.0-31.2); Mean Corpuscular Volume 92.7 fl (81-99); Mean Platelet Volume 7.2 fl (7.4-10.4); Monocytes # 0.4 K/mm3 (0.1-1.0); Monocytes % 6.6 % (1.7-9.3); Neutrophils # 4.2 K/mm3 (1.8-7.8); Neutrophils % 75.6 % (37.0-80.0); Platelet Count 201 K/mm3 (142-424); Red Blood Count 3.07 M/mm3 (4.20-5.40); Red Cell Distribution Width 15.8 % (11.5-17.5); White Blood Count 5.6 K/mm3 (4.8-10.8)
[2019-01-25 06:53] LABS: Anion Gap 13.7 mEq/L (5-15); Calcium 8.4 mg/dL (8.5-10.1); Potassium 4.7 mmoL/L (3.5-5.1)
[2019-01-25 07:00] LABS: Hemoglobin 9.1 g/dL (12.2-16.2)
--- NOTE | 2019-01-25 08:21 | Pharmacy Consult Notes ---
[facility] VTE Monitoring - Patient Demographics Admission date: 01/24/19 Report Date: 01/25/19 Time: 08:21 Allergies/Adverse Reactions: Patient Allergies No Known Allergies Allergy (Verified 12/26/18 08:52) Height: 1.7 m Weight: 88.932 kg Patient Problems: Current Active Problems Acute renal failure (Acute) Bladder outlet obstruction (Acute) Hyperkalemia (Acute) HCAP (healthcare-associated pneumonia) (Acute) - VTE Risk Labs: VTE Related Lab Results Hgb 9.1 g/dL (12.2-16.2) L D 01/25/19 05:57 Hct 28.4 % (37.0-47.0) L 01/25/19 05:57 Plt Count 201 K/mm3 (142-424) 01/25/19 05:57 BUN 83 mg/dL (7-18) H 01/25/19 05:57 Creatinine 2.77 mg/dL (0.55-1.02) H D 01/25/19 05:57 Estimated Creat Clear 25 mL/min (50-200) 01/25/19 05:57 Was VTE Risk Assessment Performed: Yes VTE Score: 7 VTE Risk Level: Moderate Risk Clinical Trial Participant: No - Prophylaxis VTE Prophylaxis Ordered?: Yes Types of VTE Prophylaxis: TEDS Knee High Location of Applied Device: Not Applicable
--- NOTE | 2019-01-25 15:39 | Progress Note ---
Internal Medicine - PN: Subj *Date: 01/25/19 *Time: 08:30 Interval history: Patient did well overnight. After insertion of Zarate, had greater than 3 L out since admission. Labs this morning show improvement in kidney function. Patient feels much better and is less "jerky". Not having as many muscle spasms as before and is alert and oriented to person and place. Denies nausea, chest pain, shortness of breath, fevers. Still having some leg pain with her broken left leg. Otherwise doing well, tolerating p.o. intake. Family at bedside updated of plan Exam Vital signs and Labs for Last 24 Hours: Temp Pulse Resp BP Pulse Ox 97.6 F 73 18 110/59 L 95 01/25/19 07:43 01/25/19 07:43 01/25/19 07:43 01/25/19 07:43 01/25/19 07:46 Laboratory Results - last 24 hr 01/25/19 05:57: WBC 5.6 D, RBC 3.07 L, Hgb 9.1 L D, Hct 28.4 L, MCV 92.7, MCH 29.6, MCHC 32.0, RDW 15.8, Plt Count 201, MPV 7.2 L, Neut % (Auto) 75.6, Lymph % (Auto) 16.0, [place] % (Auto) 6.6, Eos % (Auto) 1.7, Baso % (Auto) 0.1, Neut # (Auto) 4.2, Lymph # (Auto) 0.9, [place] # (Auto) 0.4, Eos # (Auto) 0.1, Baso # (Auto) 0.0 01/25/19 05:57: Sodium 140, Potassium 4.7 D, Chloride 108 H, Carbon Dioxide 23, Anion Gap 13.7, BUN 83 H, Creatinine 2.77 H D, Estimated Creat Clear 25, Estimated GFR 17 L*, Est GFR ( Amer) 20 L D, Glucose 85, Calcium 8.4 L I & O for Last 24 hours: Intake & Output 01/22/19 01/23/19 01/24/19 01/25/19 23:59 23:59 23:59 23:59 Intake Total 240 / 240 1014 / 1014 Output Total 700 / 700 3200 / 3200 Balance -460 / -460 -2186 / -2186 Weight 88.932 kg 88.932 kg Narrative: Alert and oriented x3, no acute distress in room air No focal neurologic deficits, able to wiggle toes bilaterally, neurovascularly intact distal to external fixator Rate and rhythm regular Lung sounds clear and equal Abdomen soft and nondistended, interval improvement in suprapubic tenderness No LE edema Mucous membranes moist, good capillary refill. Less than 3 seconds. Skin warm and dry. Assessment and Plan (1) HCAP (healthcare-associated pneumonia) Current visit: Yes Status: Acute Category: Medical Code(s): J18.9 - Pneumonia, unspecified organism (2) Acute renal failure Current visit: Yes Status: Acute Category: Medical Code(s): N17.9 - Acute kidney failure, unspecified (3) Bladder outlet obstruction Current visit: Yes Status: Acute Category: Medical Code(s): N32.0 - Bladder-neck obstruction (4) Hyperkalemia Current visit: Yes Status: Acute Category: Medical Code(s): E87.5 - Hyperkalemia (5) Anemia Current visit: Yes Status: Chronic Qualifiers: Anemia type: unspecified type Qualified Code(s): D64.9 - Anemia, unspecified Category: Medical Code(s): D64.9 - Anemia, unspecified Suspect due to chronic illness and inflammation from left lower extremity injury. Continue to monitor. Will address further in the outpatient setting, transfuse for hemoglobin less than 7 - Assessment and plan all Dx Assessment and Plan for all problems:: Continuing Levaquin for concern for pneumonia. No concern for UTI at this time his urine culture remains negative and UA was unremarkable. Significant improvement in kidney function after resolving obstruction. Continue to monitor with a.m. labs. PT and OT to assess patient today and assist with placement. Patient would like to go to [facility], will refer and try and get patient placed. Continue to monitor through the weekend with anticipated placement on Monday or discharge back to previous custodial though this is not the family's preference given the care she received and their lack of communication leading to the patient's kidney injury and obstructive uropathy.
[2019-01-26 07:06] LABS: Albumin Level 2.2 gm/dL (3.4-5.0); Albumin/Globulin Ratio 0.8 (1.1-1.8); Anion Gap 10.1 mEq/L (5-15); Bilirubin,Total 0.6 mg/dL (0.2-1.0); Calcium 8.4 mg/dL (8.5-10.1); Globulin 2.8 gm/dl (1.3-3.2); Potassium 4.1 mmoL/L (3.5-5.1)
--- NOTE | 2019-01-26 08:07 | Progress Note ---
Internal Medicine - PN: Subj *Date: 01/26/19 *Time: 08:04 Interval history: Ms. De Guzman is done well overnight. Over 2 L out in urine over the evening. Continues to have good auto diuresis. Kidney function continues to improve. Tolerating p.o. intake. No confusion, muscle jerking, significant pain, edema, shortness of breath, chest pain. Exam Vital signs and Labs for Last 24 Hours: Temp Pulse Resp BP Pulse Ox 97.5 F L 70 18 132/64 97 01/26/19 07:43 01/26/19 07:43 01/26/19 07:43 01/26/19 07:43 01/26/19 07:43 Laboratory Results - last 24 hr 01/26/19 06:38: Sodium 142, Potassium 4.1, Chloride 111 H, Carbon Dioxide 25, Anion Gap 10.1, BUN 51 H D, Creatinine 1.51 H D, Estimated Creat Clear 47, Estimated GFR 34 L, Est GFR ( Amer) 41 L D, Glucose 86, Calcium 8.4 L, Total Bilirubin 0.6, AST 15, ALT 17, Alkaline Phosphatase 110, Total Protein 5.0 L, Albumin 2.2 L, Globulin 2.8, Albumin/Globulin Ratio 0.8 L I & O for Last 24 hours: Intake & Output 01/23/19 01/24/19 01/25/19 01/26/19 23:59 23:59 23:59 23:59 Intake Total 240 / 240 1694 / 1694 2824 / 2824 Output Total 700 / 700 4600 / 4600 1600 / 1600 Balance -460 / -460 -2906 / -2906 1224 / 1224 Weight 88.932 kg 88.932 kg Microbiology Reports for the Last 24 Hours: Microbiology 01/24/19 10:34 Urine,Catheterized Urine Culture - Preliminary NO GROWTH AFTER 24 HOURS Narrative: Alert and oriented x3, no acute distress in room air No focal neurologic deficits, able to wiggle toes bilaterally, neurovascularly intact distal to external fixator Rate and rhythm regular Lung sounds clear and equal Abdomen soft and nondistended, interval improvement in suprapubic tenderness No LE edema in right leg, trace in left with ex-fix. Bruising on dorsum of foot above metatarsophalangeal joints of digits 2 through 4 ON left Mucous membranes moist, good capillary refill. Less than 3 seconds. Skin warm and dry. Assessment and Plan (1) HCAP (healthcare-associated pneumonia) Current visit: Yes Status: Acute Category: Medical Code(s): J18.9 - Pneumonia, unspecified organism (2) Acute renal failure Current visit: Yes Status: Acute Category: Medical Code(s): N17.9 - Acute kidney failure, unspecified (3) Bladder outlet obstruction Current visit: Yes Status: Acute Category: Medical Code(s): N32.0 - Bladder-neck obstruction (4) Hyperkalemia Current visit: Yes Status: Acute Category: Medical Code(s): E87.5 - Hyperkalemia (5) Anemia Current visit: Yes Status: Chronic Qualifiers: Anemia type: unspecified type Qualified Code(s): D64.9 - Anemia, unspecified Category: Medical Code(s): D64.9 - Anemia, unspecified - Assessment and plan all Dx Assessment and Plan for all problems:: Continue to monitor for improvement in kidney function. Physical therapy to continue to work with patient over the weekend. Continue to address placement the beginning of the week. [facility] currently reviewing patient's case. Additional alternatives to returning to [facility] include, [facility] or [facility]. Continues to require inpatient management pending placement
[2019-01-27 07:11] LABS: Basophils % 0.5 % (0.1-2.0); Eosinophils # 0.3 K/mm3 (0.0-0.4); Eosinophils % 5.7 % (0.1-12.0); Hematocrit 27.7 % (37.0-47.0); Hemoglobin 9.1 g/dL (12.2-16.2); Lymphocytes # 1.2 K/mm3 (0.7-4.5); Lymphocytes % 25.7 % (10-50); Mean Corpuscular HGB Conc 32.7 g/dL (31.8-35.4); Mean Corpuscular Volume 91.8 fl (81-99); Mean Platelet Volume 6.8 fl (7.4-10.4); Monocytes # 0.3 K/mm3 (0.1-1.0); Monocytes % 7.4 % (1.7-9.3); Neutrophils # 2.8 K/mm3 (1.8-7.8); Neutrophils % 60.8 % (37.0-80.0); Platelet Count 174 K/mm3 (142-424); Red Blood Count 3.02 M/mm3 (4.20-5.40); Red Cell Distribution Width 15.9 % (11.5-17.5); White Blood Count 4.5 K/mm3 (4.8-10.8)
[2019-01-27 07:12] LABS: Anion Gap 8.2 mEq/L (5-15); Calcium 8.5 mg/dL (8.5-10.1); Potassium 4.2 mmoL/L (3.5-5.1)
--- NOTE | 2019-01-27 08:33 | Progress Note ---
Internal Medicine - PN: Subj *Date: 01/27/19 *Time: 08:31 Interval history: Patient is in good spirits. Feels better physically. Is a little bit tearful today because of her brother's illness-her younger sibling is apparently in critical condition in [place] with a heart condition and is not expected to do well. However other than that she feels well. Continues to indicate she does not wish to return to the [facility]. Exam Vital signs and Labs for Last 24 Hours: Temp Pulse Resp BP Pulse Ox 97.7 F 73 18 105/67 L 95 01/27/19 08:00 01/27/19 08:00 01/27/19 08:00 01/27/19 08:00 01/27/19 08:00 Laboratory Results - last 24 hr 01/27/19 06:35: WBC 4.5 L, RBC 3.02 L, Hgb 9.1 L, Hct 27.7 L, MCV 91.8, MCH 30.0, MCHC 32.7, RDW 15.9, Plt Count 174, MPV 6.8 L, Neut % (Auto) 60.8, Lymph % (Auto) 25.7, [place] % (Auto) 7.4, Eos % (Auto) 5.7, Baso % (Auto) 0.5, Neut # (Auto) 2.8, Lymph # (Auto) 1.2, [place] # (Auto) 0.3, Eos # (Auto) 0.3, Baso # (Auto) 0.0 01/27/19 06:35: Sodium 143, Potassium 4.2, Chloride 113 H, Carbon Dioxide 26, Anion Gap 8.2, BUN 31 H D, Creatinine 1.24 H, Estimated Creat Clear 57, Estimated GFR 42 L, Est GFR ( Amer) 51 L D, Glucose 91, Calcium 8.5 I & O for Last 24 hours: Intake & Output 01/24/19 01/25/19 01/26/19 01/27/19 11:59 11:59 11:59 11:59 Intake Total 1254 / 1254 3504 / 3504 3008 / 3008 Output Total 3900 / 3900 3000 / 3000 1000 / 1000 Balance -2646 / -2646 504 / 504 2007 Weight 150 lb 196 lb 1 oz Microbiology Reports for the Last 24 Hours: Microbiology 01/24/19 10:34 Urine,Catheterized Urine Culture - Final NO GROWTH AFTER 48 HOURS 01/24/19 10:20 Blood Blood Culture - Preliminary NO GROWTH AFTER 48 HOURS 01/24/19 10:20 Blood Blood Culture - Preliminary NO GROWTH AFTER 48 HOURS Narrative: Patient is pleasant. Oriented x3. Anterior lung correa are clear. Heart rate regular. Abdomen soft. Zarate catheter is draining clear yellow urine. Left leg and her splinting/ORIF device. Distal pulses are intact and normal in both feet and they are warm and well-perfused. Assessment and Plan (1) HCAP (healthcare-associated pneumonia) Current visit: Yes Status: Acute Category: Medical Code(s): J18.9 - Pneumonia, unspecified organism (2) Acute renal failure Current visit: Yes Status: Acute Category: Medical Code(s): N17.9 - Acute kidney failure, unspecified (3) Bladder outlet obstruction Current visit: Yes Status: Acute Category: Medical Code(s): N32.0 - Bladder-neck obstruction (4) Hyperkalemia Current visit: Yes Status: Acute Category: Medical Code(s): E87.5 - Hyperkalemia (5) Anemia Current visit: Yes Status: Chronic Qualifiers: Anemia type: unspecified type Qualified Code(s): D64.9 - Anemia, unspecified Category: Medical Code(s): D64.9 - Anemia, unspecified - Assessment and plan all Dx Assessment and Plan for all problems:: Blood cultures negative, urine culture is negative. No change in plans today. AK I has resolved with normalization of her kidney function. Tomorrow we will find out whether or not [facility] has a bed for her. If they do not she wishes to find a facility in the [facility].
--- NOTE | 2019-01-28 08:52 | Discharge Summary ---
General - General Admission date:: 01/24/19 Discharge date: 01/28/19 HPI HPI: 73 year old female who recently had left ankle repair with placement of external fixator following back to back falls which also resulted in right patellar fracture/laceration who has been at [facility] for rehab was transported to [facility] for evaluation of confusion. Patient reports she has not been able to urinate for 2 days. Denies any fevers, abdominal pain, or cough. States "I told them I can't go on the bed mak." Daughter reports right sided weakness at residential this morning. In the ED, she was found to have an extremely distended bladder with 2 liters of output. Labs showed ARF with creatinine around 5 and hyperkalemia. CXR showed pneumonia. UA was suspicious for UTI. Patient was admitted for hydration and further evaluation. Hospital Course Hospital Course: Patient was admitted, as noted in HPI Zarate catheter was placed because of acute urinary retention, the diagnosis of acute kidney injury secondary to bladder outlet obstruction and postobstructive uropathy was made, and with appropriate drainage of the bladder and IV fluids creatinine improved very nicely down to previously noted levels in the 1.2 range. Patient felt much better after hydration, bladder drainage and the return of normal kidney function. Interestingly, even though urinalysis on admission looked suspicious urine and blood cultures have been negative throughout her hospital stay. She was noted to have pneumonia on chest x-ray and this was treated with antibiotics which will need to be continued as prescribed on the discharge medication list. Please note she will need follow-up chest x-ray in about 2 weeks. Patient requests transfer to [facility], and this will be facilitated today to continue PT/OT for her recent ankle fracture with repair in her multiple falls. Also continue to have an indwelling Zarate catheter secondary to severe urinary retention at the previous residential-and bladder training and catheter removal should be part of her rehabilitation program. Objective Vital signs: Temp Pulse Resp BP Pulse Ox 98.0 F 73 17 147/62 H 94 L 01/28/19 07:37 01/28/19 07:37 01/28/19 07:37 01/28/19 07:37 01/28/19 08:00 Narrative: Patient is pleasant, talkative, oriented x3. Oropharynx clear. No JVD. Otherwise ENT exam clear. Lungs in the anterior and posterior correa are clear. Heart rate regular without murmurs. Abdomen soft, nontender. No distention, normal bowel sounds. Left ankle and leg and the external fixation device as previously noted. Good distal pulses. The leg is slightly puffy as expected but no significant pitting edema. Right leg is without edema, good pulses. The arms are without edema and good distal pulses. She is able to move all of her extremities except for the left leg with expected stiffness. No neurologic deficits. No other skin breakdown. Results Labs on day of discharge: Preliminary micro results at discharge 01/24/19 10:20 Blood Culture - Preliminary Blood NO GROWTH AFTER 48 HOURS 01/24/19 10:20 Blood Culture - Preliminary Blood NO GROWTH AFTER 48 HOURS DS: Diagnosis - Discharge Diagnosis (1) HCAP (healthcare-associated pneumonia) Status: Acute (2) Acute renal failure Status: Resolved (3) Bladder outlet obstruction Status: Resolved (4) Hyperkalemia Status: Resolved (5) Anemia Status: Chronic Discharge Plan - Patient Discharge Instructions ACTIVITY: Limited activity, Up with assistance DIET: continue same diet Patient Instructions: Pneumonia-Adult, DI for Pneumonia -- Adult, Acute Renal Failure, DI for Altered Mental Status - Follow up Plan Disposition: [facility] Home Medications: Home Medications Medication Instructions Recorded Confirmed Type Aspirin [Aspir 81] 81 mg PO BID 03/05/18 01/25/19 History Atorvastatin Calcium [Atorvastatin 20 mg PO HS 03/05/18 01/25/19 History 20mg Tab] Calcium Carbonate [Calcium] 600 mg PO DAILY 03/05/18 01/24/19 History Carvedilol [Carvedilol 25mg Tab] 25 mg PO BID 03/05/18 01/25/19 History Clopidogrel Bisulfate [Plavix 75mg 75 mg PO DAILY 03/05/18 01/24/19 History Tab] Fludrocortisone Acetate [Florinef 0.1 mg PO HS 03/05/18 01/25/19 History 0.1mg tablet] Furosemide [Furosemide 40MG tAB] 40 mg PO BID 03/05/18 01/25/19 History Hydralazine HCl [Hydralazine HCl 25 mg PO BID 03/05/18 01/24/19 History 25mg Tablet] Potassium Chloride [Micro-K 10mEq 10 meq PO BID 03/05/18 01/24/19 History cap] predniSONE [Deltasone 10mg 10 mg PO DAILY 03/05/18 01/24/19 History tablet] Levothyroxine Sodium 25 mcg PO DAILY 09/11/18 01/24/19 History [Levothyroxine 25mcg (0.025mg) Tab] Lisinopril [Lisinopril 5mg Tablet] 5 mg PO DAILY 10/05/18 01/24/19 History Acetaminophen [Acetaminophen Extra 1,000 mg PO Q6HP PRN 01/25/19 01/25/19 History Strength] Amiodarone HCl [Cordarone 200mg 200 mg PO DAILY 01/25/19 01/25/19 History tablet] Apixaban [Eliquis] 5 mg PO BID 01/25/19 01/25/19 History Ferrous Sulfate [Ferrousul] 325 mg PO DAILY 01/25/19 01/25/19 History Gabapentin 800 mg PO TID 01/25/19 01/25/19 History Hydrocod/Acet 5/325 mg [[place] 1 tab PO Q4HP PRN 01/25/19 01/25/19 History 5/325mg tablet] Lactulose [Lactulose 20gm/30ml 20 gm PO DAILYP PRN 01/25/19 01/25/19 History Oral Soln] Multivitamin [One Daily] 1 each PO DAILY 01/25/19 01/25/19 History Ondansetron HCl [Zofran 4mg Tab] 4 mg PO Q6HP PRN 01/25/19 01/25/19 History Pantoprazole Sodium [Protonix 40mg 40 mg PO DAILY 01/25/19 01/25/19 History tablet] Sennosides/Docusate Sodium [Senna 1 each PO BID 01/25/19 01/25/19 History Plus Tablet] levoFLOXacin [Levaquin 500mg 500 mg PO DAILY #7 tab 01/28/19 Rx tab] Prescriptions/Medication Reconciliation: New levoFLOXacin [Levaquin 500mg tab] 500 mg PO DAILY #7 tab Continue predniSONE [Deltasone 10mg tablet] 10 mg PO DAILY Clopidogrel Bisulfate [Plavix 75mg Tab] 75 mg PO DAILY Carvedilol [Carvedilol 25mg Tab] 25 mg PO BID Hydralazine HCl [Hydralazine HCl 25mg Tablet] 25 mg PO BID Fludrocortisone Acetate [Florinef 0.1mg tablet] 0.1 mg PO HS Calcium Carbonate [Calcium] 600 mg PO DAILY Atorvastatin Calcium [Atorvastatin 20mg Tab] 20 mg PO HS Aspirin [Aspir 81] 81 mg PO BID Levothyroxine Sodium [Levothyroxine 25mcg (0.025mg) Tab] 25 mcg PO DAILY Acetaminophen [Acetaminophen Extra Strength] 1,000 mg PO Q6HP PRN PRN Reason: PAIN Amiodarone HCl [Cordarone 200mg tablet] 200 mg PO DAILY Ferrous Sulfate [Ferrousul] 325 mg PO DAILY Gabapentin 800 mg PO TID Hydrocod/Acet 5/325 mg [[place] 5/325mg tablet] 1 tab PO Q4HP PRN PRN Reason: PAIN Lactulose [Lactulose 20gm/30ml Oral Soln] 20 gm PO DAILYP PRN PRN Reason: Constipation Multivitamin [One Daily] 1 each PO DAILY Ondansetron HCl [Zofran 4mg Tab] 4 mg PO Q6HP PRN PRN Reason: Nausea Pantoprazole Sodium [Protonix 40mg tablet] 40 mg PO DAILY Furosemide [Furosemide 40MG tAB] 40 mg PO BID Lisinopril [Lisinopril 5mg Tablet] 5 mg PO DAILY Apixaban [Eliquis] 5 mg PO BID Sennosides/Docusate Sodium [Senna Plus Tablet] 1 each PO BID Discontinued Potassium Chloride [Micro-K 10mEq cap] 10 meq PO BID
== END 2019-01-28 11:16 | DRG 698 ==
LOC: ER 10:43 → 2ND 12:51
PROVIDERS: ADMIT Internal Medicine Adolescent Medicine; ATTEND Internal Medicine Adolescent Medicine
DX: Z79.52 Long term (current) use of systemic steroids; Y95 Nosocomial condition; Z79.02 Long term (current) use of antithrombotics/antiplatelets; Z91.81 History of falling; E03.9 Hypothyroidism, unspecified; I10 Essential (primary) hypertension; Z79.01 Long term (current) use of anticoagulants; N32.0 Bladder-neck obstruction; Z79.82 Long term (current) use of aspirin; S82.001D Unspecified fracture of right patella, subsequent encounter for closed fracture with routine healing; I25.10 Atherosclerotic heart disease of native coronary artery without angina pectoris; J18.9 Pneumonia, unspecified organism; S82.892D Other fracture of left lower leg, subsequent encounter for closed fracture with routine healing; Z79.899 Other long term (current) drug therapy
CPT/HCPCS: 36415; 70450; 71010; 71045; 74176; 80048; 80053; 81001; 82962; 83605; 83735; 85025; 87040; 87086; 93005; 94761; 97162; 97166; 97530; 97535; 99285; J1956

== ENCOUNTER → 2019-03-19 13:44 | Outpatient (POV) | payer MEDICARE, OTHER, SELFPAY ==
[2019-03-19 13:52] VITALS: BP 100/75; PULSE 89; RESP 18; O2SAT 98; BMI 32.3
--- NOTE | 2019-03-19 15:42 | HMH.PMPROC ---
- Procedure Date: 03/19/19 Time: 15:42 Anesthesiologist:: Cherrie Abbott APRN Complications:: None Pre-procedure Diagnosis:: Degenerative disc disease lumbar spine with lumbar radiculopathy Post-procedure Diagnosis:: Same Indications for Procedure:: Patient is a very pleasant 73-year-old white female who presents today for intrathecal pain pump adjustment. Patient is doing extremely well on her 0.25 mg infusion of morphine. Patient rates her pain a 3 out of 10 she states it has increased recently. Patient would like a slight adjustment she denies any side effects from medication. Physical Exam General: Alert and oriented x3, no acute distress, pleasant and cooperative, [on room air] Lungs: Resps E/U, Symmetrical chest expansion, Eyes: PERRL Musculoskeletal: Flexion and extension of lumbar spine somewhat guarded secondary to pain, deep tendon reflexes normal, strength in upper and lower extremities [5/5], [abnormal gait noted] Neurological: speech clear, supervisor toy parts former equal, no gross sensory deficits Procedure Details:: Informed consent was obtained and the risk and benefits of the procedure were explained to the patient. The patient was taken to the procedure room where noninvasive monitoring was placed including noninvasive blood pressure cuff and pulse oximeter. Patient's pump was interrogated and reprogrammed. The infusion rate was increased to 0.3 mg of morphine a day. The patient tolerated the procedure well. Plan and Disposition:: We will see the patient back at her next intrathecal pain pump refill and reprogram she is been instructed to call the office if she has any issues prior to her next appointment. Dr. Tijerina has reviewed this note and agrees with this plan of care. This note was dictated using voice recognition software and may contain errors or omissions
== END ==
PROVIDERS: PCP Nurse Practitioner Family; Visit Provider Clinical Nurse Specialist Family Health
DX: M51.16 Intervertebral disc disorders with radiculopathy, lumbar region (principal)
CPT/HCPCS: 62368

== ENCOUNTER → 2019-07-23 13:43 | Outpatient (CLI) | payer MEDICARE, OTHER, SELFPAY ==
[2019-07-23 16:30] LABS: Amphetamine/Metha Screen,Urine Negative ng/mL (<1000); Barbiturates Screen,Urine Negative ng/mL (<200); Benzodiazepines Screen,Urine Negative ng/mL (<200); Cannabinoid Screen,Urine Negative ng/mL (<50); Cocaine Screen,Urine Negative ng/mL (<300); Methadone Screen,Urine Negative ng/mL (<300); Opiate Screen,Urine Negative ng/mL (<300); Phencyclidine Screen,Urine Negative ng/mL (<25)
[2019-07-30 01:08] LABS: Codeine Negative (Cutoff=100); Hydrocodone Negative (Cutoff=100); Hydromorphone Negative (Cutoff=100); Morphine Positive (.)
[2019-07-30 06:50] LABS: Opiates Positive (.)
== END ==
PROVIDERS: Visit Provider Clinical Nurse Specialist Family Health
DX: Z79.899 Other long term (current) drug therapy (principal)
CPT/HCPCS: 80305; 80361; 80365; G0480

== ENCOUNTER 2020-03-24 10:50 | Day surgery (SDC) | payer MEDICARE, OTHER, SELFPAY ==
[2020-03-24 11:10] VITALS: BP 165/85; BP 168/78; BP 175/85; BP 185/78; PULSE 82; PULSE 85; PULSE 92; RESP 18; TEMP 36.6; TEMP 36.8; O2SAT 96; O2SAT 97; O2SAT 98; O2SAT 99; BMI 32.5
--- NOTE | 2020-03-24 11:26 | HMH.PMPROC ---
- Procedure Date: 03/24/20 Time: 11:27 Anesthesiologist:: Cherrie Abbott APRN Complications:: None Pre-procedure Diagnosis:: Degenerative disc disease lumbar spine with lumbar radiculopathy Post-procedure Diagnosis:: Same Indications for Procedure:: Patient is a pleasant 74-year-old white female who presents today for thecal pain pump refill and reprogram. She rates her pain a 4 out of 10 and would like a slight increase today. She had an issue with her last increase for several days prior to feeling better. She is currently on 0.8 mg a day morphine. She denies side effects from medication. [facility] #[id number] reviewed and appropriate. Patient is on gabapentin 800 mg 1 p.o. 3 times daily from her primary care physician. 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 The patient was taken to the procedure room where noninvasive monitoring was placed including noninvasive blood pressure cuff and pulse oximeter. Patient's pump was interrogated. The area over the pump was cleansed with chlorhexidine as a cleansing solution. In sterile fashion the pump was accessed with a 22-gauge needle. Approximately 1 mL's were removed of the pump solution and discarded appropriately. The pump was then refilled with 20 mL's of morphine 5 mg/mL. The needle was withdrawn and a bandage was placed over the puncture site. The infusion rate was reprogrammed to 0.9 mg/day. The patient tolerated the procedure well. Plan and Disposition:: We will see the patient at her next intrathecal pain pump refill and reprogram. Patient has been instructed to call the office if she has any issues prior to her next appointment. We specifically discussed risk factors for Covid-19 including age, heart or lung disease, diabetes, immunosuppression and travel. We also discussed that NSAIDs may worsen Covid-19 infection symptoms and that they should not be used to treat Covid-19 symptoms. Patient was also informed that corticosteroids in any form oral or injectable will decrease immune response and may increase risk of Covid-[address] Tijerina has reviewed this patient's chart and this note and agrees with plan of care. Patient has been instructed to call the office if they have any issues prior to the next appointment. Dr. Tijerina has reviewed this note and agrees with this plan of care. This note was dictated using voice recognition software and may contain errors or omissions
== END 2020-03-24 11:34 | disposition home or self-care (01) ==
LOC: SC.PAINP 10:50
PROVIDERS: PCP Nurse Practitioner Family; Visit Provider Clinical Nurse Specialist Family Health
DX: M51.16 Intervertebral disc disorders with radiculopathy, lumbar region (principal)
CPT/HCPCS: 62370

== ENCOUNTER → 2020-05-05 10:18 | Outpatient (CLI) | payer MEDICARE, OTHER, SELFPAY ==
--- NOTE | 2020-05-05 10:39 | XR_ITS ---
PROCEDURE: XR MULTIPLE SPINE 6+V CLINICAL INDICATION: LOW BACK PAIN,THORACIC PAIN history of previous surgical procedures involving lumbar spine along with multiple vertebroplasties COMPARISON: LS5 LUMBAR SPINE 5 VIEWS from 09/12/2017 FINDINGS: AP and lateral films of the thoracic spine show generalized osteopenia. There is a non recent marked compression fracture of T9 with approximately 90 percent loss of height. There are vertebroplasties involving T11 and T12. There is no definite acute thoracic spine compression fracture. AP lateral and oblique films of the lumbar spine show vertebroplasties at the L1, L2 and L3 levels. There are pedicle screws and metallic brackets extending from the L3 level to the S2 level. The long pedicle screws at the S2 level extending into the innominate bones bilaterally. There is generalized osteopenia of the lumbar spine. All the pedicle screws are stable with no evidence of loosening. Multiple laminectomy defects extend from the L3 level to the S1 level. There is an apparent pain relief device projecting over the right iliac crest within the liked road extending into the spinal canal at the L3-4 level. The SI joints appear grossly normal bilaterally. IMPRESSION: Stable extensive postsurgical changes involving the lower thoracic and lumbar spine with prominent generalized osteopenia, doubt an acute compression fracture though a mild acute fracture would be difficult to exclude in view of the multiple level metallic hardware and vertebroplasties Dictated by: Dr. Fredi Fisher MD 05/05/2020 12:[address] Fredi Fisher MD in [place] 05/05/2020 12:13
== END ==
PROVIDERS: PCP Nurse Practitioner Family; Visit Provider Nurse Practitioner Family
DX: M54.5 Low back pain (principal); M54.6 Pain in thoracic spine
CPT/HCPCS: 72084

== ENCOUNTER → 2020-05-18 13:52 | Outpatient (CLI) | payer MEDICARE, OTHER, SELFPAY ==
--- NOTE | 2020-05-18 14:07 | MR_ITS ---
PROCEDURE: MR THORACIC SPINE WO CON CLINICAL INDICATION: COMPRESSION FRACTURE OF T9 VEREBRA COMPARISON: XR MULTIPLE SPINE 6+V from 05/05/2020 TECHNIQUE: Standard unenhanced MRI thoracic spine protocol FINDINGS: Degenerative lower thoracic scoliosis is noted. The spinal cord and conus medullaris is unremarkable. There is loss of height of the T9 vertebral body by 40 percent. There is loss of height of the inferior endplate of T4 by approximately 50 percent. There is no significant T2 or STIR signal hyperintensity within these compression fractures indicative of remote fractures. The other bony structures are unremarkable except for evidence of T11-T12 kyphoplasties. There is is posttraumatic retropulsion at the T8-T9 and T9-T10 disc spaces and midbody of T9 producing mild central canal stenosis. There is much paramagnetic artifact distorting the lower thoracic spine. The para thoracic structures are unremarkable. 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 Dictated by: Josr Jaimes 05/18/2020 15:39 Electronically signed by Josr Jaimes in [place] 05/18/2020 15:39
[2020-05-18 16:47] LABS: Blood Urea Nitrogen 17 mg/dl (7-17); Estimated Glomerular Filt Rate 40 ml/min (>60); GFR (African American) 48 ML/MIN (>60)
== END ==
PROVIDERS: PCP Nurse Practitioner Family; Visit Provider Nurse Practitioner Family
DX: S22.070A Wedge compression fracture of T9-T10 vertebra, initial encounter for closed fracture (principal); M54.6 Pain in thoracic spine; R10.31 Right lower quadrant pain; Z98.890 Other specified postprocedural states
CPT/HCPCS: 36415; 72146; 82565; 84520

== ENCOUNTER → 2020-05-20 07:18 | Outpatient (CLI) | payer MEDICARE, OTHER, SELFPAY ==
--- NOTE | 2020-05-20 09:13 | CT_ITS ---
PROCEDURE: CT ABDOMEN PELVIS W CON CLINICAL INDICATION: RLQ ABD PAIN COMPARISON: ABDPELWO CT abdomen pelvis wo con from 01/24/2019 TECHNIQUE: IV Contrast: 75ML OPTIRAY 350 Oral Contrast None Axial images obtained with sagittal and coronal reformats. All CT scans at the facility use one or more dose reduction, viz: automated exposure control, ma/kV adjustment per patient size (including targeted exams where dose is matched to indication, i.e. head), or iterative reconstruction technique. FINDINGS: CT scan the abdomen without contrast: The heart is enlarged and there are some scar-like infiltrates at the right lung base noted. There is a punctate calcification in the left lung. The unenhanced liver is unremarkable. Patient is status post cholecystectomy. The adrenal glands, spleen, and the aorta is unremarkable. The left kidney is unremarkable. Right kidney is remarkable for a 2 centimeter right lower pole cyst. Punctate calcifications are again demonstrated throughout the pancreatic parenchyma particularly within the uncinate process. The small and large bowel, and area of the appendix is unremarkable. L2 through S1 external fixation, laminectomy, and multilevel kyphoplasty is again demonstrated with streak artifact. Right gluteal generator and posterior column stimulator is noted within the low lower lumbar sacral spine. CT scan of the pelvis without contrast. Remote ununited fractures of the left ischial pubic ramus is again noted. Patient is status post hysterectomy. The bladder, soft tissues and bony structures are unremarkable. IMPRESSION: Stable lumbosacral postoperative changes, remote chronic pancreatitis, status post cholecystectomy and hysterectomy, posterior column stimulator Dictated by: Josr Jaimes 05/20/2020 10:38 Electronically signed by Josr Jaimes in [place] 05/20/2020 10:38
== END ==
PROVIDERS: PCP Nurse Practitioner Family; Visit Provider Nurse Practitioner Family
DX: R10.31 Right lower quadrant pain (principal); S22.070A Wedge compression fracture of T9-T10 vertebra, initial encounter for closed fracture; M54.6 Pain in thoracic spine; Z98.890 Other specified postprocedural states
CPT/HCPCS: 74177; Q9967

== ENCOUNTER 2020-06-29 15:03 | Day surgery (SDC) | payer MEDICARE, OTHER, SELFPAY ==
[2020-06-29 15:18] VITALS: BP 187/99; PULSE 94; RESP 20; TEMP 36.7; O2SAT 95; BMI 29.7
[2020-06-29 15:34] VITALS: BP 174/89; PULSE 91; RESP 18
[2020-06-29 15:35] VITALS: BP 174/89; PULSE 90; RESP 18; O2SAT 97
--- NOTE | 2020-06-29 15:39 | HMH.PMPROC ---
- Procedure Date: 06/29/20 Time: 15:39 Anesthesiologist:: Cherrie Abbott APRN Complications:: None Pre-procedure Diagnosis:: Degenerative disc disease lumbar spine lumbar radiculopathy history of compression fracture and kyphoplasty Post-procedure Diagnosis:: Same Indications for Procedure:: Patient is a pleasant 74-year-old white female who presents today for intrathecal pain pump refill and reprogram. She rates her pain today a 6 out of 10 however she just recently had a vertebroplasty for compression fracture. She is currently at 0.9 mg a day morphine she like a slight increase. She denies side effects from medication. She is also on gabapentin 800 mg 1 p.o. 3 times daily from her primary care physician. 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 The patient was taken to the procedure room where noninvasive monitoring was placed including noninvasive blood pressure cuff and pulse oximeter. Patient's pump was interrogated. The area over the pump was cleansed with chlorhexidine as a cleansing solution. In sterile fashion the pump was accessed with a 22-gauge needle. Approximately 1.5 mL's were removed of the pump solution and discarded appropriately. The pump was then refilled with 20 mL's of morphine 5 mg/mL. The needle was withdrawn and a bandage was placed over the puncture site. The infusion rate was reprogrammed to 1 mg/day. The patient tolerated the procedure well. Plan and Disposition:: We will see the patient back at her next intrathecal pain pump refill and reprogram she has been instructed to call the office if she has any issues prior to her next appointment. Dr. Tijerina has reviewed this note and agrees with this plan of care. This note was dictated using voice recognition software and may contain errors or omissions
[2020-06-29 15:56] VITALS: BP 139/91; PULSE 90; RESP 18; O2SAT 95
== END 2020-06-29 15:57 | disposition home or self-care (01) ==
LOC: SC.PAINP 15:05
PROVIDERS: PCP Nurse Practitioner Family; Visit Provider Clinical Nurse Specialist Family Health
DX: M51.16 Intervertebral disc disorders with radiculopathy, lumbar region (principal); M48.56XS Collapsed vertebra, not elsewhere classified, lumbar region, sequela of fracture; Z98.890 Other specified postprocedural states; I48.91 Unspecified atrial fibrillation; I25.10 Atherosclerotic heart disease of native coronary artery without angina pectoris; E78.5 Hyperlipidemia, unspecified; I10 Essential (primary) hypertension; J45.909 Unspecified asthma, uncomplicated; K21.9 Gastro-esophageal reflux disease without esophagitis; E03.9 Hypothyroidism, unspecified; Z90.49 Acquired absence of other specified parts of digestive tract; Z90.710 Acquired absence of both cervix and uterus
CPT/HCPCS: 62370

== ENCOUNTER → 2020-08-18 08:33 | Outpatient (CLI) | payer MEDICARE, OTHER, SELFPAY ==
[2020-08-19 16:12] LABS: Covid-19 Nasal PCR Sendout Lex Not Detected
== END ==
PROVIDERS: Visit Provider Neurological Surgery
DX: Z03.818 Encounter for observation for suspected exposure to other biological agents ruled out (principal)
CPT/HCPCS: U0004

== ENCOUNTER 2020-09-07 13:33 | Day surgery (SDC) | payer MEDICARE, OTHER, SELFPAY ==
[2020-09-07 13:46] VITALS: BP 142/83; PULSE 75; RESP 18; TEMP 36.2; O2SAT 95; BMI 27.3
[2020-09-07 14:08] VITALS: BP 142/78; PULSE 74; RESP 18; O2SAT 97
[2020-09-07 14:16] VITALS: BP 142/79; PULSE 89; RESP 18; O2SAT 98
--- NOTE | 2020-09-07 14:19 | HMH.PMPROC ---
- Procedure Date: 09/07/20 Time: 14:19 Anesthesiologist:: Cherrie Abbott APRN Complications:: None Pre-procedure Diagnosis:: Degenerative disc disease lumbar spine lumbar radiculopathy, postlaminectomy syndrome, history of compression fracture and kyphoplasty x2 Post-procedure Diagnosis:: Same Indications for Procedure:: Patient is a pleasant 74-year-old white female presents today for intrathecal pain pump refill and reprogram. She did well with her last increase. She is currently on morphine 1 mg/day. Patient denies side effects from medication. Patient [facility] #[id number] reviewed and appropriate. Urine drug screens have been appropriate. Patient just recently had an additional kyphoplasty. Patient would like a slight increase today. She is also on gabapentin 800 mg 1 p.o. 3 times daily this is from her primary care physician. 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 The patient was taken to the procedure room where noninvasive monitoring was placed including noninvasive blood pressure cuff and pulse oximeter. Patient's pump was interrogated. The area over the pump was cleansed with chlorhexidine as a cleansing solution. In sterile fashion the pump was accessed with a 22-gauge needle. Approximately 6 mL's were removed of the pump solution and discarded appropriately. The pump was then refilled with 20 mL's of morphine 5 mg/mL. The needle was withdrawn and a bandage was placed over the puncture site. The infusion rate was reprogrammed to increase to 1.1 mg/day. The patient tolerated the procedure well. Plan and Disposition:: We will see the patient back at her next intrathecal pain pump refill and reprogram she has been instructed to call the office if she has any issues prior to her next appointment. Dr. Tijerina has reviewed this note and agrees with this plan of care. This note was dictated using voice recognition software and may contain errors or omissions
[2020-09-07 14:30] VITALS: BP 147/83; PULSE 75; RESP 18; O2SAT 95
== END 2020-09-07 14:30 | disposition home or self-care (01) ==
LOC: SC.PAINP 13:35
PROVIDERS: PCP Nurse Practitioner Family; Visit Provider Clinical Nurse Specialist Family Health
DX: M51.16 Intervertebral disc disorders with radiculopathy, lumbar region (principal); M96.1 Postlaminectomy syndrome, not elsewhere classified; I48.91 Unspecified atrial fibrillation; I25.10 Atherosclerotic heart disease of native coronary artery without angina pectoris; K21.9 Gastro-esophageal reflux disease without esophagitis; Z87.19 Personal history of other diseases of the digestive system; E07.9 Disorder of thyroid, unspecified
CPT/HCPCS: 62370

== ENCOUNTER 2020-11-16 12:55 | Day surgery (SDC) | payer MEDICARE, OTHER, SELFPAY ==
[2020-11-16 13:11] VITALS: BP 148/80; PULSE 78; RESP 18; TEMP 36.6; O2SAT 98; BMI 28.1
[2020-11-16 13:33] VITALS: BP 169/85; PULSE 85; RESP 18
[2020-11-16 13:34] VITALS: BP 160/87; PULSE 80; RESP 18; O2SAT 98
--- NOTE | 2020-11-16 13:38 | HMH.PMPROC ---
- Procedure Date: 11/16/20 Time: 13:38 Anesthesiologist:: Cherrie Abbott APRN Complications:: None Pre-procedure Diagnosis:: Degenerative disc disease lumbar spine lumbar radiculopathy, postlaminectomy syndrome, history of compression fracture and kyphoplasty Post-procedure Diagnosis:: Same Indications for Procedure:: Patient is a pleasant 75-year-old white female who presents today for intrathecal pain pump refill and reprogram. Patient currently rates her pain a 3 out of 10. [facility] #[id number] reviewed and appropriate. Patient currently on morphine 1.1 mg/day. She like a slight increase. She denies side effects to medication. Physical Exam General: Alert and oriented x3, no acute distress, pleasant and cooperative, [on room air] Lungs: Resps E/U, Symmetrical chest expansion, Eyes: PERRL Musculoskeletal: Flexion and extension of lumbar spine somewhat guarded secondary to pain, deep tendon reflexes normal, strength in upper and lower extremities [5/5], [abnormal gait noted] Neurological: speech clear, cold roll catcher equal, no gross sensory deficits Procedure Details:: Informed consent was obtained and the risk and benefits of the procedure were explained to the patient. The patient was taken to the procedure room where noninvasive monitoring was placed including noninvasive blood pressure cuff and pulse oximeter. Patient's pump was interrogated. The area over the pump was cleansed with chlorhexidine as a cleansing solution. In sterile fashion the pump was accessed with a 22-gauge needle. Approximately 4.5 mL's were removed of the pump solution and discarded appropriately. The pump was then refilled with 20 mL's of morphine 5 mg/mL. The needle was withdrawn and a bandage was placed over the puncture site. The infusion rate was reprogrammed to increase to 1.25 mg/day. The patient tolerated the procedure well. Plan and Disposition:: I will follow-up with the patient at her next intrathecal pain pump refill and reprogram she has been instructed to call the office if she has any issues prior to next appointment. Dr. Tijerina has reviewed this note and agrees with this plan of care. This note was dictated using voice recognition software and may contain errors or omissions
[2020-11-16 13:43] VITALS: BP 144/78; PULSE 73; RESP 18; O2SAT 98
== END 2020-11-16 13:44 | disposition home or self-care (01) ==
LOC: SC.PAINP 12:57
PROVIDERS: PCP Nurse Practitioner Family; Visit Provider Clinical Nurse Specialist Family Health
DX: M51.16 Intervertebral disc disorders with radiculopathy, lumbar region (principal); M96.1 Postlaminectomy syndrome, not elsewhere classified; Z87.39 Personal history of other diseases of the musculoskeletal system and connective tissue; I48.91 Unspecified atrial fibrillation; E78.5 Hyperlipidemia, unspecified; K21.9 Gastro-esophageal reflux disease without esophagitis; E07.9 Disorder of thyroid, unspecified; Z95.818 Presence of other cardiac implants and grafts; Z79.899 Other long term (current) drug therapy
CPT/HCPCS: 62370

== ENCOUNTER 2021-01-18 12:34 | Day surgery (SDC) | payer MEDICARE, OTHER, SELFPAY ==
[2021-01-18 13:45] VITALS: BP 154/74; BP 157/82; PULSE 76; PULSE 85; RESP 18; TEMP 36.6; O2SAT 98; BMI 26.6
--- NOTE | 2021-01-18 13:52 | P.PCN_ITS ---
- Procedure Date: 01/18/21 Time: 13:52 Anesthesiologist:: Cherrie Abbott APRN Complications:: None Pre-procedure Diagnosis:: Degenerative disc disease lumbar spine lumbar radiculopathy, back pain, postlaminectomy syndrome, history of compression fracture and kyphoplasty Post-procedure Diagnosis:: Same Indications for Procedure:: Patient is a pleasant 75-year-old white female who presents today for intrathecal pain pump refill and reprogram. [facility] #[id number] reviewed and appropriate. Drug screens have been appropriate. Patient is currently on a morphine infusion of 1.25 mg/day. She denies side effects to current medication. Patient would like a slight increase in her medication today. Procedure Details:: Informed consent was obtained and the risk and benefits of the procedure were explained to the patient. The patient was taken to the procedure room where noninvasive monitoring was placed including noninvasive blood pressure cuff and pulse oximeter. Patient's pump was interrogated. The area over the pump was cleansed with chlorhexidine as a cleansing solution. In sterile fashion the pump was accessed with a 22-gauge needle. Approximately 4 mL's were removed of the pump solution and discarded appropriately. The pump was then refilled with 20 mL's of morphine 10 mg/mL. The needle was withdrawn and a bandage was placed over the puncture site. The infusion rate was reprogrammed to 1.5 mg/day. The patient tolerated the procedure well. Plan and Disposition:: I will see the patient back at her next intrathecal pain pump refill and reprogram she has been instructed to call the office if she has any issues prior to her next appointment. Dr. Tijerina has reviewed this note and agrees with this plan of care. This note was dictated using voice recognition software and may contain errors or omissions
[2021-01-18 13:56] VITALS: BP 165/74; PULSE 83; RESP 18
[2021-01-18 14:02] VITALS: BP 162/74; PULSE 79; RESP 18; O2SAT 97
[2021-01-18 16:51] LABS: Amphetamine/Metha Screen,Urine Negative ng/ml (<1000); Barbiturates Screen,Urine Negative ng/ml (<200)
[2021-01-18 16:53] LABS: Cannabinoid Screen,Urine Negative ng/ml (<50); Cocaine Screen,Urine Negative ng/ml (<300)
[2021-01-18 16:54] LABS: Methadone Screen,Urine Negative ng/ml (<300)
[2021-01-18 16:55] LABS: Opiate Screen,Urine Negative ng/ml (<300); Phencyclidine Screen,Urine Negative ng/ml (<25)
[2021-01-18 19:42] LABS: Benzodiazepines Screen,Urine Negative ng/ml (<200)
== END 2021-01-18 14:15 | disposition home or self-care (01) ==
LOC: SC.PAINP 12:37
PROVIDERS: PCP Nurse Practitioner Family; Visit Provider Clinical Nurse Specialist Family Health
DX: M51.16 Intervertebral disc disorders with radiculopathy, lumbar region (principal); M96.1 Postlaminectomy syndrome, not elsewhere classified; Z87.39 Personal history of other diseases of the musculoskeletal system and connective tissue; I48.91 Unspecified atrial fibrillation; E78.5 Hyperlipidemia, unspecified; K21.9 Gastro-esophageal reflux disease without esophagitis; E07.9 Disorder of thyroid, unspecified; Z95.818 Presence of other cardiac implants and grafts; Z79.899 Other long term (current) drug therapy
CPT/HCPCS: 62370; 80305

== ENCOUNTER → 2021-02-02 09:21 | Outpatient (CLI) | payer MEDICARE, OTHER, SELFPAY ==
--- NOTE | 2021-02-02 | US_ITS ---
APPROVED REPORT Exam Type: Ankle to Brachial Index Chef Assistant: RT Álvaro(R) Indications Claudication: Bilaterally Rest Pain: Bilaterally Risk Factors CAD Obesity Pressures/Indices Right Indices Left Indices Brachial 164.00 mmHg Brachial 175.00 mmHg Low Thigh 181.00 mmHg 1.03 Low Thigh 195.00 mmHg 1.11 Calf 183.00 mmHg 1.05 Calf 181.00 mmHg 1.03 Ankle(PT) 220.00 mmHg 1.26 Ankle(PT) 210.00 mmHg 1.20 Ankle(DP) 181.00 mmHg 1.03 Ankle(DP) 203.00 mmHg 1.16 Digit 106.00 mmHg 0.61 Digit 81.00 mmHg 0.46 Findings RT ANNETTE=1.3 LT ANNETTE=1.2 RT TBI=0.6 LT TBI=0.5 Normal pulses Normal waveforms Conclusion RT ANNETTE=1.3 LT ANNETTE=1.2 RT TBI=0.6 LT TBI=0.5 Normal pulses Normal waveforms Normal appearing resting noninvasive lower extremity arterial study. Electronically signed by : Hussein Plasencia MD 02/02/2021 18:03:20
== END ==
PROVIDERS: PCP Nurse Practitioner Family; Visit Provider Nurse Practitioner Family
DX: R09.89 Other specified symptoms and signs involving the circulatory and respiratory systems (principal)
CPT/HCPCS: 93923

== ENCOUNTER 2021-02-03 13:26 | Emergency (ER) | payer MEDICARE, OTHER, SELFPAY ==
[2021-02-03 13:27] VITALS: BP 141/75; PULSE 76; RESP 18; TEMP 36.7; O2SAT 95; BMI 28.1
[2021-02-03 13:30] VITALS: BP 141/75; PULSE 76; RESP 18; TEMP 36.7; O2SAT 95; BMI 28.2
--- NOTE | 2021-02-03 14:04 | HMH.EDUTC ---
[facility] [place] Clinical Impression: Laceration Disposition: Home, Self-Care Condition on Discharge: Good Instructions: How to Care for a Laceration After Repair, DI for Laceration Repair, DI for Laceration Repair -- Simple Additional Instructions: Suture instructions: You have required stitches or Elizabeth today. Please read the following instructions so you know how to care for them: 1. Keep wound area dry for the first 24 hours. 2 May clean gently with mild soap and water, after 48 hours to prevent crusting over suture knots. 3. You may shower if your provider gives permission but do not take a bath until the skin is healed.. 4. Never leave a wet dressing or Band-Aid on your stitches as this allows bacteria to reach the area and may cause infection. Band-aids can cause the wound to sweat and not recommended to wear for long periods of time Watch for signs of infection: Increasing redness, tenderness or warmth around the suture site Unusual swelling around the site Appearance of pus around each suture or any red streaks Fever If you develop any of the above signs or symptoms of infection, Follow up with Family Physician immediately 5. Suture removal in _7-10___days 6. Return to [facility] or follow up with family doctor for removal. This can be done by any medical provider during regular hours on Monday through Monday, by appointment. Prescriptions: Amoxicillin/Potassium Clav [Augmentin 500mg tab] 1 tab PO BID 5 Days #10 tab Transmission Status: Received by [facility] #[id number] Referrals: Aurelia Remy APRN [Primary Care Provider] - As needed Time of Disposition: 15:11 Medical Decision Making - Armani Inquiry Pt receiving controlled substance: No Armani was queried for this patient: No Vital Signs: 02/03/21 13:27 02/03/21 13:30 02/03/21 15:16 Temperature 98.1 F 98.1 F 98.1 F Temperature Source Oral Oral Pulse Rate 76 Pulse Rate [Left Radial] 76 76 Respiratory Rate 18 18 18 Blood Pressure 141/75 H Blood Pressure [Right Arm] 141/75 H 141/75 H Blood Pressure Mean [Right Arm] 97 97 Blood Pressure Source [Right Arm] Automatic Cuff Automatic Cuff Blood Pressure Position [Right Arm] Sitting Sitting 02 Sat by Pulse Oximetry 95 95 Oxygen Delivery Method Room Air Room Air Medical Decision Narrative: Patient states that she has taken augmentin before without complications and reactions Last tetanus was 1 yr ago [facility] [place] - General Stated complaint: AO [id number] cut to left leg Time Seen by Provider: 02/03/21 14:13 Mode of Arrival: Ambulatory Source of Information: Patient, Relative Limitations: No Limitations Description of Symptoms (Recalled from Triage Doc. by RN): PATIENT C/O LACERATION TO LEFT VELIZ AFTER HITTING HER LEG ON WALKER APPROX 1000 THIS MORNING. PATIENT IS ON PLAVIX. PATIENT IS UP TO DATE TDAP. HEENT Symptoms (Recalled from RN notes): No Resp Symptoms (Recalled from RN notes): No Skin Symptoms (Recalled from RN notes): Yes MS Symptoms (Recalled from RN notes): No Functional Status (Recalled from RN notes): WNL - History of Present Illness Provider Complaint: Patient states that she was walking [place] from her [place] and she hit her left lower leg against something on her walking and caused laceration to her lower leg State that she takes plavix and she immediately applied pressure to the cut but family looked at it and thought it may need stitches. States that her last tetanus shot was 1yr ago. - Related Data Home Medications Medication Instructions Recorded Confirmed Atorvastatin Calcium [Lipitor 20mg 20 mg PO HS 03/05/18 01/18/21 Tab] Calcium Carbonate [Calcium] 600 mg PO DAILY 03/05/18 01/18/21 Clopidogrel Bisulfate [Plavix 75mg 75 mg PO DAILY 03/05/18 01/18/21 Tab] Furosemide [Furosemide 40MG tAB*] 40 mg PO BID 03/05/18 01/18/21 predniSONE [Deltasone 10mg tablet] 10 mg PO DAILY 03/05/18 01/18/21 Levothyroxine Sodium 25 mcg PO DAILY 09/11/18 02
[2021-02-03 15:16] VITALS: BP 141/75; PULSE 76; RESP 18; TEMP 36.7; O2SAT 95
== END 2021-02-03 15:20 | disposition home or self-care (01) ==
PROVIDERS: Emergency Provider Nurse Practitioner; PCP Nurse Practitioner Family
DX: S81.812A Laceration without foreign body, left lower leg, initial encounter (principal); W22.8XXA Striking against or struck by other objects, initial encounter; Y92.018 Other place in single-family (private) house as the place of occurrence of the external cause; I48.20 Chronic atrial fibrillation, unspecified; I25.10 Atherosclerotic heart disease of native coronary artery without angina pectoris; K21.9 Gastro-esophageal reflux disease without esophagitis; E78.5 Hyperlipidemia, unspecified; I10 Essential (primary) hypertension
CPT/HCPCS: 12001; G0463; 99202

== ENCOUNTER 2021-03-02 12:31 | Inpatient (IN) | payer MEDICARE, OTHER, SELFPAY ==
[2021-03-02] VITALS (11 sets, daily range): BP systolic 126–177; BP diastolic 44–86; PULSE 75–88; RESP 16–28; TEMP 36.6–37.9; O2SAT 92–100; BMI 28.2; BMI 28.1; BMI 28.0
[2021-03-02 13:07] LABS: UTC Influenza A Antigen Negative (Negative); UTC Strep Screen (Rapid) Negative (Negative)
[2021-03-02 13:08] LABS: UTC Influenza B Antigen Negative (Negative)
--- NOTE | 2021-03-02 13:10 | HMH.EDUTC ---
[facility] – [place] Clinical Impression: Pneumonia Qualifiers: Pneumonia type: due to unspecified organism Laterality: right Lung location: upper lobe of lung Qualified Code(s): J18.9 - Pneumonia, unspecified organism Disposition: Still a Patient Condition on Discharge: Fair Referrals: Aurelia Remy APRN [Primary Care Provider] - Medical Decision Making - Medical Records Medical records reviewed: No: I reviewed the patient's medical records. - Armani Inquiry Pt receiving controlled substance: No Vital Signs: 03/02/21 12:38 03/02/21 12:41 Temperature 99.5 F Temperature Source Oral Pulse Rate [Left Radial] 88 88 Respiratory Rate 20 16 Blood Pressure [Right Arm] 157/86 H 152/78 H Blood Pressure Mean [Right Arm] 109 102 Blood Pressure Source [Right Arm] Automatic Cuff Blood Pressure Position [Right Arm] Sitting 02 Sat by Pulse Oximetry 95 94 L Oxygen Delivery Method Room Air Room Air - Lab Data Lab results reviewed: Yes: I reviewed the patient's lab results. Lab Results 03/02/21 12:51: Influenza Type A Ag Negative, Influenza Type B Ag Negative 03/02/21 12:51: Strep Scn Rapid Clinic Negative 03/02/21 13:22: WBC 12.2 H, RBC 4.75, Hgb 14.5, Hct 44.9, MCV 94.5, MCH 30.4, MCHC 32.2, RDW 17.9 H, Plt Count 286, MPV 7.5, Neut % (Auto) 85.8 H, Lymph % (Auto) 8.6 L, [place] % (Auto) 4.6, Eos % (Auto) 0.5, Baso % (Auto) 0.5, Neut # (Auto) 10.5 H, Lymph # (Auto) 1.1, [place] # (Auto) 0.6, Eos # (Auto) 0.1, Baso # (Auto) 0.1 03/02/21 13:22: Sodium 135 L, Potassium 3.4 L, Chloride 96 L, Carbon Dioxide 34 H, Anion Gap 8.4, BUN 16, Creatinine 1.10 H, Estimated Creat Clear 57, Estimated GFR 48 L, Est GFR ( Amer) 59, Glucose 132 H, Calcium 9.7, Total Bilirubin 1.9 H, AST 34, ALT 20, Alkaline Phosphatase 94, Total Protein 7.2, Albumin 4.2, Globulin 3.0, Albumin/Globulin Ratio 1.4 Result diagrams: 03/02/21 13:22 03/02/21 13:22 Orders (Tests/Meds): ED MEDICATIONS Generic Name Dose Route Start Last Admin Trade Name Freq PRN Reason Stop Dose Admin Sodium Chloride 1,000 mls @ 200 mls/hr 03/02/21 13:45 03/02/21 13:34 Sod Chlor 0.9% 1000ml Bag IV 03/02/21 18:44 200 mls/hr .Q5H KIM Administration Discontinued Medications Generic Name Dose Route Start Last Admin Trade Name Freq PRN Reason Stop Dose Admin Sodium Chloride 1,000 mls @ 200 mls/hr 03/02/21 13:30 Sod Chlor 0.9% 1000ml Bag IV 04/01/21 13:29 .Q5H KIM ORDERS Category Date Time Status Complete Blood Count Auto Diff Stat Lab 03/02/21 13:22 Results Full Resp Panel w/COVID ([facility]) Routine Lab 03/02/21 13:25 Received Strep Screen Confirmation Stat Micro 03/02/21 12:51 Received - Radiology Data #1 Image(s): Chest Image Reviewed: Yes I reviewed the patient's radiology image, Yes I have reviewed radiologist's interpretation Preliminary Findings: Abnormal PROCEDURE: XR CHEST 2V CLINICAL HISTORY: fever, cough COMPARISON: CR [id number] XR chest portable from 01/24/2019 FINDINGS: Multiple kyphoplasties are noted in the lower thoracic and upper lumbar spine with thoracic kyphosis. Anterior to the midthoracic spine and lower thoracic spine are curvilinear areas of increased density which may represent extravasation of the methylmethacrylate into lymphatic channels. Fibrotic changes are present in the lingula. There are low lung volumes. Faint increased density in the right suprahilar region which may be due to patchy infiltrate. Postsurgical changes are present in the upper lumbar spine. IMPRESSION: Thoracic kyphosis with multi level kyphoplasties with suggestion of perilymphatic extravasation Fibrotic change in the lingula Questionable right upper lobe infiltrate Dictated by: Hussein Plasencia MD 03/02/2021 13:45 Hussein Plasencia MD in [place] 03/02/2021 13:45 Medical Decision Narrative: Due to her history of renal insuffciency and other comorbitities, She was transferred to the ER for further leti
--- NOTE | 2021-03-02 13:13 | XR_ITS ---
PROCEDURE: XR CHEST 2V CLINICAL HISTORY: fever, cough COMPARISON: CR [id number] XR chest portable from 01/24/2019 FINDINGS: Multiple kyphoplasties are noted in the lower thoracic and upper lumbar spine with thoracic kyphosis. Anterior to the midthoracic spine and lower thoracic spine are curvilinear areas of increased density which may represent extravasation of the methylmethacrylate into lymphatic channels. Fibrotic changes are present in the lingula. There are low lung volumes. Faint increased density in the right suprahilar region which may be due to patchy infiltrate. Postsurgical changes are present in the upper lumbar spine. IMPRESSION: Thoracic kyphosis with multi level kyphoplasties with suggestion of perilymphatic extravasation Fibrotic change in the lingula Questionable right upper lobe infiltrate Dictated by: Hussein Plasencia MD 03/02/2021 13:45 Hussein Plasencia MD in [place] 03/02/2021 13:45
[2021-03-02 13:30] LABS: Basophils # 0.1 K/mm3 (0-0.2); Basophils % 0.5 % (0.1-2.0); Eosinophils # 0.1 K/mm3 (0.0-0.4); Eosinophils % 0.5 % (0.1-12.0); Hematocrit 44.9 % (37.0-47.0); Hemoglobin 14.5 g/dL (12.2-16.2); Lymphocytes # 1.1 K/mm3 (0.7-4.5); Lymphocytes % 8.6 % (10-50); Mean Corpuscular HGB Conc 32.2 g/dL (31.8-35.4); Mean Corpuscular Hemoglobin 30.4 pg (27.0-31.2); Mean Corpuscular Volume 94.5 fl (81-99); Mean Platelet Volume 7.5 fl (7.4-10.4); Monocytes # 0.6 K/mm3 (0.1-1.0); Monocytes % 4.6 % (1.7-9.3); Neutrophils # 10.5 K/mm3 (1.8-7.8); Neutrophils % 85.8 % (37.0-80.0); Platelet Count 286 K/mm3 (142-424); Red Blood Count 4.75 M/mm3 (4.20-5.40); Red Cell Distribution Width 17.9 % (11.5-17.5); White Blood Count 12.2 K/mm3 (4.8-10.8)
[2021-03-02 13:31] LABS: Adenovirus,PCR Not Detected (NotDetected); Bordetella Pertussis Not Detected (NotDetected); Chlamydophila Pneumoniae, PCR Not Detected (NotDetected); Coronavirus 19, PCR Not Detected (NotDetected); Coronavirus 229E Not Detected (NotDetected); Coronavirus NL63 Not Detected (NotDetected); Coronavirus OC43 Not Detected (NotDetected); Coronovirus HKU1,PCR Not Detected (NotDetected); Human Metapneumovirus Not Detected (NotDetected); Influenza A, PCR Not Detected (NotDetected); Influenza AH1, 2009 Not Detected (NotDetected); Influenza AH1, PCR Not Detected (NotDetected); Influenza AH3,PCR Not Detected (NotDetected); Influenza B, PCR Not Detected (NotDetected); Mycoplasma Pneumoniae, PCR Not Detected (NotDetected); Parainfluenza 1, PCR Not Detected (NotDetected); Parainfluenza 2, PCR Not Detected (NotDetected); Parainfluenza 3, PCR Not Detected (NotDetected); Parainfluenza 4, PCR Not Detected (NotDetected); Respiratory Syncytial Virus Not Detected (NotDetected); Rhinovirus/Enterovirus Not Detected (NotDetected)
[2021-03-02 13:33] LABS: MANUAL DIFFERENTIAL MANUAL DIFFERENTIAL (MANUAL DIFF)
[2021-03-02 13:37] LABS: Chloride 96 mmol/L (98-107)
[2021-03-02 13:38] LABS: Potassium 3.4 mmoL/L (3.5-5.1); Sodium 135 mmol/L (136-145)
[2021-03-02 13:40] LABS: Alanine Aminotransferase 20 U/L (12-78); Aspartate Amino Transferase 34 U/L (14-36); Blood Urea Nitrogen 16 mg/dl (7-17); Creatinine Clearance Estimated 57 mL/min (50-200); Estimated Glomerular Filt Rate 48 ml/min (>60); GFR (African American) 59 ML/MIN (>60)
[2021-03-02 13:41] LABS: Albumin Level 4.2 g/dl (3.5-5.0); Albumin/Globulin Ratio 1.4 (1.1-1.8); Alkaline Phosphatase 94 U/L (38-126); Anion Gap 8.4 mEq/L (5-15); Bilirubin,Total 1.9 mg/dl (0.2-1.3); Calcium 9.7 mg/dl (8.4-10.2); Carbon Dioxide 34 mmol/L (22.0-30.0); Glucose 132 mg/dl (74-100); Total Protein,Serum 7.2 g/dl (6.3-8.2)
[2021-03-02 14:02] LABS: Lymphocytes % 6 % (10-50); Monocytes % 2 % (2-9); Neutrophils % 92 % (42-76); Platelet Estimate Normal; RBC Morphology Normal; Total Cells Counted 100
--- NOTE | 2021-03-02 14:59 | PC.NURSE ---
pt assisted to restroom.
[2021-03-02 15:15] LABS: Microscopic, Urine URINE MICROSCOPIC (MICROSCOPIC)
[2021-03-02 15:38] LABS: Appearance,Urine CLEAR (Clear); Bilirubin,Urine Negative (Negative); Blood, Urine TRACE-I (Negative); Color,Urine YELLOW (Yellow); Glucose,Urine (UA) Negative (Negative); Ketones,Urine Negative (Negative); Leukocyte Esterase,Urine Negative (Negative); Nitrate,Urine Negative (Negative); PH,Urine 7.5 (5.0-8.5); Protein,Urine Negative (Negative); Specific Gravity, Urine 1.015 (1.005-1.030); Urobilinogen,Urine 0.2 EU/dl (0.2)
[2021-03-02 15:41] LABS: Bacteria,Urine Trace /lpf; WBC,Urine Occasional #/hpf (0-3)
--- NOTE | 2021-03-02 15:48 | CT_ITS ---
PROCEDURE: CT ABDOMEN PELVIS W CON CLINICAL INDICATION: vomiting Vomiting COMPARISON: CT CT ABDOMEN PELVIS W CON from 05/20/2020 TECHNIQUE: IV Contrast: 75ML Isovue 370 Oral Contrast None Axial images obtained with sagittal and coronal reformats. All CT scans at the facility use one or more dose reduction, viz: automated exposure control, ma/kV adjustment per patient size (including targeted exams where dose is matched to indication, i.e. head), or iterative reconstruction technique. FINDINGS: LOWER THORAX: There is dense calcification of the mitral valve annulus. ABDOMEN & PELVIS: Atelectatic changes are present in the right lower lobe. There are mild atelectatic or fibrotic changes in the right middle lobe. There is trace right effusion. Prior cholecystectomy. The small area of focal fatty infiltration in the falciform ligament region of the liver. Borderline splenomegaly at 13 cm. There are coarse calcifications within the pancreas consistent with chronic pancreatitis. No evidence of acute pancreatitis. No renal or ureteral calculi. There are small bilateral renal cortical cyst. The adrenal glands have an unremarkable appearance. There is given history of prior appendectomy. There is a mucosal lining of hyperdensity within the cecum and proximal ascending colon and could be related to recent medication ingestion or recent oral contrast ingestion. No intestinal obstruction or free air. There is colonic diverticulosis. No evidence of diverticulitis. There is a small umbilical hernia which contains fat. There has been a prior hysterectomy. There is a old displaced left superior and inferior pubic ramus fracture. Extensive postsurgical changes are present of the lumbar spine with inter pedicular screws from L2-S2 with multiple wedge compression changes and numerous level kyphoplasty changes from T7 to L2. Long lag screws are present from the bilateral sacrum into the iliac bones. There is an epidural pain pump present entering the thecal sac at the L3-L4 level. IMPRESSION: 1. Mild bibasilar atelectasis with trace right effusion. 2. Coarse calcifications within the pancreas suggesting chronic pancreatitis. 3. No intestinal obstruction or free air 4. Other nonacute findings as described above. Dictated by: Hussein Plasencia MD 03/02/2021 16:27 Hussein Plasencia MD in [place] 03/02/2021 16:27
--- NOTE | 2021-03-02 15:51 | HMH.EDGENADL ---
ED Disposition Clinical Impression: Decreased oral intake, Myalgia Pneumonia Qualifiers: Pneumonia type: due to unspecified organism Laterality: right Lung location: upper lobe of lung Qualified Code(s): J18.9 - Pneumonia, unspecified organism Disposition: Admitted as Observation Condition on Discharge: Fair Referrals: Aurelia Remy APRN [Primary Care Provider] - Time of Disposition: 15:56 - Critical Care Critical Care Time: No Attestation: On 03/02/21, the high probability of a clinically significant, sudden or life threatening deterioration of the following system(s) required my full and direct attention, intervention and personal management. The time I documented below is in addition to time spent performing reported procedures but includes the following listed in this critical care notation. Medical Decision Making - Medical Records Medical records reviewed: Yes: I reviewed the patient's medical records. - Armani Inquiry Pt receiving controlled substance: No Vital Signs: 03/02/21 12:32 03/02/21 12:38 03/02/21 12:41 Temperature 99.5 F Temperature Source Oral Pulse Rate Pulse Rate [Left Radial] 88 88 88 Respiratory Rate 20 20 16 Blood Pressure Blood Pressure [Right Arm] 157/86 H 152/78 H Blood Pressure Mean Blood Pressure Mean [Right Arm] 109 102 Blood Pressure Source [Right Arm] Automatic Cuff Blood Pressure Position [Right Arm] Sitting 02 Sat by Pulse Oximetry 100 95 94 L Oxygen Delivery Method Room Air Room Air Room Air 03/02/21 14:32 03/02/21 15:05 Temperature Temperature Source Pulse Rate 77 78 Pulse Rate [Left Radial] Respiratory Rate Blood Pressure 148/61 H 168/44 H Blood Pressure [Right Arm] Blood Pressure Mean 115 125 Blood Pressure Mean [Right Arm] Blood Pressure Source [Right Arm] Blood Pressure Position [Right Arm] 02 Sat by Pulse Oximetry 94 L 98 Oxygen Delivery Method - Lab Data Lab Results 03/02/21 12:51: Influenza Type A Ag Negative, Influenza Type B Ag Negative 03/02/21 12:51: Strep Scn Rapid Clinic Negative 03/02/21 13:22: WBC 12.2 H, RBC 4.75, Hgb 14.5, Hct 44.9, MCV 94.5, MCH 30.4, MCHC 32.2, RDW 17.9 H, Plt Count 286, MPV 7.5, Neut % (Auto) 85.8 H, Lymph % (Auto) 8.6 L, [place] % (Auto) 4.6, Eos % (Auto) 0.5, Baso % (Auto) 0.5, Neut # (Auto) 10.5 H, Lymph # (Auto) 1.1, [place] # (Auto) 0.6, Eos # (Auto) 0.1, Baso # (Auto) 0.1, Total Counted 100, Neutrophils % (Manual) 92 H, Lymphocytes % (Manual) 6 L, Monocytes % (Manual) 2, Platelet Estimate Normal, RBC Morphology Normal 03/02/21 13:22: Sodium 135 L, Potassium 3.4 L, Chloride 96 L, Carbon Dioxide 34 H, Anion Gap 8.4, BUN 16, Creatinine 1.10 H, Estimated Creat Clear 57, Estimated GFR 48 L, Est GFR ( Amer) 59, Glucose 132 H, Calcium 9.7, Total Bilirubin 1.9 H, AST 34, ALT 20, Alkaline Phosphatase 94, Total Protein 7.2, Albumin 4.2, Globulin 3.0, Albumin/Globulin Ratio 1.4 03/02/21 13:25: Chlamy pneumoniae PCR Not detected, Adenovirus (PCR) Not detected, B. pertussis DNA (PCR) Not detected, Coronavirus OC43 (PCR) Not detected, Coronavirus HKU1 (PCR) Not detected, Coronavirus 229E (PCR) Not detected, SARS-CoV-2 (PCR) Not detected, Coronavirus NL63 (PCR) Not detected, Human Metapneumovir PCR Not detected, Influenza A (H1) PCR Not detected, Influ A (H1N1/09) PCR Not detected, Influenza A (H3) PCR Not detected, Influenza Type A (PCR) Not detected, Influenza Type B (PCR) Not detected, M. pneumoniae (PCR) Not detected, Parainfluenza 1 (PCR) Not detected, Parainfluenza 2 (PCR) Not detected, Parainfluenza 3 (PCR) Not detected, Parainfluenza 4 (PCR) Not detected, RSV (PCR) Not detected, Entero/Rhino (PCR) Not detected 03/02/21 15:07: Urine Color Yellow, Urine Appearance Clear, Urine pH 7.5, Ur Specific Rebuck 1.015, Urine Protein Negative, Urine Glucose (UA) Negative, Urine Ketones Negative, Urine Blood Trace-i, Urine Nitrate Negative, Urine Bilirubin Negative, Urine Urobilinogen 0.2, Ur Leukocyte Yana
--- NOTE | 2021-03-02 15:52 | PC.NURSE ---
Called house for a bed.
--- NOTE | 2021-03-02 16:04 | PC.NURSE ---
pt gone to rad.
[2021-03-02 16:21] LABS: Procalcitonin 0.103 ng/mL (0.0-2.0)
--- NOTE | 2021-03-02 16:55 | PC.NURSE ---
1641 - Report called to Cecile Wilkes RN @ this time
--- NOTE | 2021-03-02 17:29 | HMH.HP ---
*Admission Date: 03/02/21 *Chief complaint: Vomiting *History of present illness: 75-year-old female began vomiting yesterday afternoon around lunchtime and when symptoms persisted until today she sought treatment at the urgent treatment clinic. From the [facility] she was referred over to the ER. She reports onset of vomiting at lunch yesterday. She does not know how many times she vomited. She has been unable to hold down liquids or solids until she was in the emergency department which point she did tolerate some tea. She denies fevers or chills. She denies cough, shortness of breath, chest pain. She has not had any diarrhea. Patient has had a cholecystectomy. She denies any history of pancreatitis (CT scan suggestive of chronic pancreatitis). The last thing she had to eat before symptoms began was a homemade sausage sandwich. Work-up in the ER raise suspicion for bacterial infection due to elevated white blood cell count with left shift. Chest x-ray showed a questionable right upper lobe infiltrate. CT scan did not reveal any intra-abdominal abscess or infectious process. Patient was hydrated in the emergency department and while she admitted she felt better attempts at drinking caused retching. Patient has been admitted for observation. She has been ordered IV azithromycin and Rocephin to treat the possibility of community-acquired pneumonia. [facility] History I have reviewed the patient's past medical history: Yes Medical History: Reports:: Atrial Fibrillation, Coronary Artery Disease, Gastroesophageal Reflux Disease(GERD), Hyperlipidemia, Hypertension, Kidney Stones, Palpitations Denies:: Cancer, Diabetes Mellitus Type 1, Diabetes Mellitus Type 2, Internal Pacemaker, MRSA, Seizures *Have you ever received a pneumonia vaccine?: Yes *Have you received a flu vaccine this season?: Yes Other Medical History: Reports: Arthritis, Hypothyroidism, Thyroid Disease. Denies: Blood Transfusion Reaction Other Surgeries: Yes: Appendectomy, Cardiac Catheterization, Cholecystectomy, Hysterectomy-Total, Other (pain pump implants, back x3,). No: Pacemaker Amputation: No Fractures: Yes - *Social History Last grade of school completed: High school graduate Smoking Status: Never smoker Alcohol Intake: never Substance Use Type: denies use *Occupational Status:: retired Housing: house Household Members: other *Travel in the last 8 weeks: None Family Hx:: No significant family history Review of Systems - Constitutional Reports lack of energy, Denies body ache(s), Denies chills - Eyes Denies itchy eyes - ENT Reports dry mouth, Denies dizziness - *Cardiovascular Denies chest pain, Denies chest pain at rest, Denies shortness of breath with activity - *Respiratory Denies change in phlegm color, Denies chest congestion, Denies cough - *Gastrointestinal Reports abdominal pain, Reports cramping, Reports heartburn, Reports heartburn, Reports nausea, Reports vomiting, Denies belching, Denies bloating, Denies change in bowel habits, Denies change in stools, Denies coffee ground vomit, Denies constipation, Denies loose stools, Denies difficulty swallowing, Denies feeling full early, Denies excessive passing of gas, Denies incontinent of stools, Denies vomiting blood, Denies bright, red blood in stools, Denies loose stools, Denies black, tarry stools, Denies pain with swallowing, Denies constant urge to pass stool, Denies other - *Genitourinary Denies abnormal vaginal bleeding - *Musculoskeletal Denies joint pain - Integumentary/Breasts Denies hair loss - *Neurologic Denies dizziness, Denies headache(s), Denies numbness Meds Home Medications Medication Instructions Recorded Confirmed Type Atorvastatin Calcium [Lipitor 20mg 20 mg PO HS 03/05/18 01/18/21 History Tab] Calcium Carbonate [Calcium] 600 mg PO DAILY 03/05/18 01/18/21 History Clopidogrel Bisulfate [Plavix 75mg 75 mg PO DAILY 03/05/18 01/18/21 History Tab] Furosemide [Fu
--- NOTE | 2021-03-02 18:33 | PC.NURSE ---
Pt to floor at 1715. CB in reach. Meds per jan. States nausea has improved. No emesis. VSS
--- NOTE | 2021-03-02 18:54 | PC.WOUNDNOTE ---
Wound Location: LLE Length:3.5 Top wound 1x1 small area on LLE Width:1.5 Top wound Depth: Undermining Y/N: no Tunneling cm:No Granulation %:No Slough/necrotic tissue %:No Inflammation/swelling Y/N: Pain and/or tenderness Y/N: Exudate:No Serosanguinous Sanguinous Serosanguinous Seropurulent Purulent Color: Clear Valerie Cloudy/milky [place] Red Green Yellow Brown Olivera Blue Consistency: Thick Thin Amount: None Scant Small Moderate Large Odor Y/N:No
[2021-03-03] VITALS (9 sets, daily range): BP systolic 114–140; BP diastolic 52–79; PULSE 83–110; RESP 16–18; TEMP 36.7–39.2; O2SAT 89–96; BMI 27.8
[2021-03-03 06:20] LABS: Basophils # 0.1 K/mm3 (0-0.2); Basophils % 0.4 % (0.1-2.0); Eosinophils # 0.1 K/mm3 (0.0-0.4); Eosinophils % 0.5 % (0.1-12.0); Hematocrit 40.8 % (37.0-47.0); Lymphocytes # 0.6 K/mm3 (0.7-4.5); Lymphocytes % 4.6 % (10-50); Mean Corpuscular HGB Conc 31.8 g/dL (31.8-35.4); Mean Corpuscular Hemoglobin 30.5 pg (27.0-31.2); Mean Corpuscular Volume 95.8 fl (81-99); Mean Platelet Volume 7.6 fl (7.4-10.4); Monocytes # 0.6 K/mm3 (0.1-1.0); Monocytes % 4.7 % (1.7-9.3); Neutrophils # 11.1 K/mm3 (1.8-7.8); Neutrophils % 89.8 % (37.0-80.0); Platelet Count 209 K/mm3 (142-424); Red Blood Count 4.26 M/mm3 (4.20-5.40); Red Cell Distribution Width 17.9 % (11.5-17.5); White Blood Count 12.4 K/mm3 (4.8-10.8)
[2021-03-03 06:38] LABS: Chloride 101 mmol/L (98-107)
[2021-03-03 06:39] LABS: Potassium 3.3 mmoL/L (3.5-5.1); Sodium 134 mmol/L (136-145)
[2021-03-03 06:41] LABS: Alanine Aminotransferase 22 U/L (12-78); Albumin Level 3.4 g/dl (3.5-5.0); Alkaline Phosphatase 82 U/L (38-126); Anion Gap 6.3 mEq/L (5-15); Aspartate Amino Transferase 42 U/L (14-36); Bilirubin,Total 1.5 mg/dl (0.2-1.3); Blood Urea Nitrogen 12 mg/dl (7-17); Carbon Dioxide 30 mmol/L (22.0-30.0); Creatinine Clearance Estimated 56 mL/min (50-200); Estimated Glomerular Filt Rate 48 ml/min (>60); GFR (African American) 59 ML/MIN (>60)
[2021-03-03 06:42] LABS: Albumin/Globulin Ratio 1.4 (1.1-1.8); Globulin 2.5 g/dL (1.3-3.2); Glucose 143 mg/dl (74-100); Total Protein,Serum 5.9 g/dl (6.3-8.2)
[2021-03-03 07:04] LABS: MANUAL DIFFERENTIAL MANUAL DIFFERENTIAL (MANUAL DIFF)
--- NOTE | 2021-03-03 07:20 | HMH.ACPN2 ---
Internal Medicine - PN: Subj *Date: 03/03/21 *Time: 07:20 Interval history: Patient had continued nausea and 2 episodes of vomiting overnight. She continues to denies shortness of breath. She had a temperature of 102.5 Exam Vital signs and Labs for Last 24 Hours: Temp Pulse Resp BP Pulse Ox 99.0 F 86 20 148/74 H 92 L 03/03/21 05:22 03/02/21 20:00 03/02/21 20:00 03/02/21 20:00 03/02/21 20:00 Laboratory Results - last 24 hr 03/02/21 12:51: Influenza Type A Ag Negative, Influenza Type B Ag Negative 03/02/21 12:51: Strep Scn [facility] Negative 03/02/21 13:22: WBC 12.2 H, RBC 4.75, Hgb 14.5, Hct 44.9, MCV 94.5, MCH 30.4, MCHC 32.2, RDW 17.9 H, Plt Count 286, MPV 7.5, Neut % (Auto) 85.8 H, Lymph % (Auto) 8.6 L, [place] % (Auto) 4.6, Eos % (Auto) 0.5, Baso % (Auto) 0.5, Neut # (Auto) 10.5 H, Lymph # (Auto) 1.1, [place] # (Auto) 0.6, Eos # (Auto) 0.1, Baso # (Auto) 0.1, Total Counted 100, Neutrophils % (Manual) 92 H, Lymphocytes % (Manual) 6 L, Monocytes % (Manual) 2, Platelet Estimate Normal, RBC Morphology Normal 03/02/21 13:22: Sodium 135 L, Potassium 3.4 L, Chloride 96 L, Carbon Dioxide 34 H, Anion Gap 8.4, BUN 16, Creatinine 1.10 H, Estimated Creat Clear 57, Estimated GFR 48 L, Est GFR ( Amer) 59, Glucose 132 H, Calcium 9.7, Total Bilirubin 1.9 H, AST 34, ALT 20, Alkaline Phosphatase 94, Total Protein 7.2, Albumin 4.2, Globulin 3.0, Albumin/Globulin Ratio 1.4 03/02/21 13:22: Procalcitonin 0.103 03/02/21 13:25: Chlamy pneumoniae PCR Not detected, Adenovirus (PCR) Not detected, B. pertussis DNA (PCR) Not detected, Coronavirus OC43 (PCR) Not detected, Coronavirus HKU1 (PCR) Not detected, Coronavirus 229E (PCR) Not detected, SARS-CoV-2 (PCR) Not detected, Coronavirus NL63 (PCR) Not detected, Human Metapneumovir PCR Not detected, Influenza A (H1) PCR Not detected, Influ A (H1N1/09) PCR Not detected, Influenza A (H3) PCR Not detected, Influenza Type A (PCR) Not detected, Influenza Type B (PCR) Not detected, M. pneumoniae (PCR) Not detected, Parainfluenza 1 (PCR) Not detected, Parainfluenza 2 (PCR) Not detected, Parainfluenza 3 (PCR) Not detected, Parainfluenza 4 (PCR) Not detected, RSV (PCR) Not detected, Entero/Rhino (PCR) Not detected 03/02/21 15:07: Urine Color Yellow, Urine Appearance Clear, Urine pH 7.5, Ur Specific [place] 1.015, Urine Protein Negative, Urine Glucose (UA) Negative, Urine Ketones Negative, Urine Blood Trace-i, Urine Nitrate Negative, Urine Bilirubin Negative, Urine Urobilinogen 0.2, Ur Leukocyte Esterase Negative, Urine RBC None, Urine WBC Occasional, Ur Squamous Epith Cells 3-5, Urine Bacteria Trace 03/03/21 06:11: WBC 12.4 H, RBC 4.26, Hgb 13.0 D, Hct 40.8, MCV 95.8, MCH 30.5, MCHC 31.8, RDW 17.9 H, Plt Count 209 D, MPV 7.6, Neut % (Auto) 89.8 H, Lymph % (Auto) 4.6 L, [place] % (Auto) 4.7, Eos % (Auto) 0.5, Baso % (Auto) 0.4, Neut # (Auto) 11.1 H, Lymph # (Auto) 0.6 L, [place] # (Auto) 0.6, Eos # (Auto) 0.1, Baso # (Auto) 0.1 03/03/21 06:11: Sodium 134 L, Potassium 3.3 L, Chloride 101 I & O for Last 24 hours: Intake & Output 02/28/21 03/01/21 03/02/21 03/03/21 11:59 11:59 11:59 11:59 Intake Total 190 / 190 Balance 190 / 190 Weight 177 lb 7 oz - Constitutional no acute distress - *Routine Respiratory Exam Present: CTA bilaterally - *Routine Cardiovascular Exam Present: RRR - *Routine Abdominal Exam Present: soft, normoactive bowel sounds. Absent: tenderness - *Routine Skin Exam Comments: Patient has a healing wound on the left lower leg with no signs of cellulitis Assessment and Plan (1) Acute gastroenteritis Status: Acute Category: Medical Code(s): K52.9 - Noninfective gastroenteritis and colitis, unspecified (2) Hypokalemia Status: Acute Category: Medical Code(s): E87.6 - Hypokalemia (3) Coronary artery disease Status: Acute Category: Medical Code(s): I25.10 - Atherosclerotic heart disease of [place] coronary artery without angina pectoris (4) Pneumonia
[2021-03-03 07:47] LABS: Eosinophils % 1 % (0-3); Lymphocytes % 3 % (10-50); Monocytes % 4 % (2-9); Neutrophils % 92 % (42-76); Total Cells Counted 100
[2021-03-03 07:48] LABS: Platelet Estimate Normal; RBC Morphology Normal
--- NOTE | 2021-03-03 09:46 | HMH.PHAVTE ---
[facility] VTE Monitoring - Patient Demographics Admission date: 03/03/21 Report Date: 03/03/21 Time: 09:46 Allergies/Adverse Reactions: Patient Allergies No Known Allergies Allergy (Verified 03/02/21 12:41) Height: 1.7 m Weight: 80.484 kg Patient Problems: Current Active Problems Decreased oral intake (Acute) Myalgia (Acute) Acute gastroenteritis (Acute) Hypokalemia (Acute) Coronary artery disease (Acute) - VTE Risk Labs: VTE Related Lab Results Hgb 13.0 g/dL (12.2-16.2) D 03/03/21 06:11 Hct 40.8 % (37.0-47.0) 03/03/21 06:11 Plt Count 209 K/mm3 (142-424) D 03/03/21 06:11 BUN 16 mg/dl (7-17) 03/02/21 13:22 Creatinine 1.10 mg/dl (0.52-1.04) H 03/02/21 13:22 Estimated Creat Clear 57 mL/min (50-200) 03/02/21 13:22 Was VTE Risk Assessment Performed: Yes VTE Score: 5 VTE Risk Level: Low Risk - Prophylaxis Types of VTE Prophylaxis: TEDS Knee High (STUART HOSE ORDER PLACED)
--- NOTE | 2021-03-03 13:45 | PC.NURSE ---
Speci cup @ bedside for sputum collection. Pt educated and aware of need for specimen.
[2021-03-03 15:16] LABS: Calcium 8.5 mg/dl (8.4-10.2)
--- NOTE | 2021-03-03 18:17 | PC.NURSE ---
Pt has been asleep majority of shift, states she is just exhausted from getting poor sleep last night. Is A&Ox4. Remains on room air. Lungs diminished upon auscultation. Abdomen soft, non-tender w/ active BS in all quads. Pt medicated w/ Zofran once this shift, she did vomit once as well, no other complaints voiced. Ambulates w/ standby assistance to bathroom. No BM this shift. Voiding w/o difficulty. Pt did have a temp of 100.4 this AM but has been afebrile remainder oft shift. Call lan is w/in reach. Family has been updated on POC via phone this shift.
[2021-03-04] VITALS (9 sets, daily range): BP systolic 109–145; BP diastolic 60–77; PULSE 64–88; RESP 16–20; TEMP 36.5–38.1; O2SAT 92–97; BMI 28.0
--- NOTE | 2021-03-04 05:01 | PC.NURSE ---
A&OX4. PT TOLERATING RA T/O SHIFT. AT BEGINNING OF SHIFT, PT C/O NA AND REQUESTED ZOFRAN. PT GIVEN THIS MED, WHICH HELPED HER NA. PT RESTED AND STATED SHE FEELS MUCH BETTER OF RIGHT NOW. PT GOT UP TO BATHROOM WITH WALKER AND STANDBY ASSIST. NO ISSUES. PT BECAME FEBRILE X1 THIS SHIFT. ACTIVE COOLING MEASURES ENFORCED AND TYLENOL ADMINISTERED. PT TEMP NOW 98.4. PT HAS HAD NO OTHER C/O THUS FAR. SEEMS TO BE EATING & DRINKING VERY LITTLE, ONLY SOME WATER THIS SHIFT. THIS NURSE ENCOURAGED PT TO DRINK PLENTY OF FLUIDS. VSS WILL CONTINUE TO MONITOR.
[2021-03-04 06:54] LABS: Basophils % 0.5 % (0.1-2.0); Eosinophils # 0.3 K/mm3 (0.0-0.4); Eosinophils % 4.7 % (0.1-12.0); Hematocrit 35.2 % (37.0-47.0); Hemoglobin 11.7 g/dL (12.2-16.2); Lymphocytes # 0.4 K/mm3 (0.7-4.5); Lymphocytes % 6.7 % (10-50); Mean Corpuscular HGB Conc 33.3 g/dL (31.8-35.4); Mean Corpuscular Hemoglobin 31.2 pg (27.0-31.2); Mean Corpuscular Volume 93.7 fl (81-99); Mean Platelet Volume 7.4 fl (7.4-10.4); Monocytes # 0.3 K/mm3 (0.1-1.0); Neutrophils # 5.1 K/mm3 (1.8-7.8); Neutrophils % 83.1 % (37.0-80.0); Platelet Count 171 K/mm3 (142-424); Red Blood Count 3.75 M/mm3 (4.20-5.40); Red Cell Distribution Width 17.8 % (11.5-17.5); White Blood Count 6.1 K/mm3 (4.8-10.8)
[2021-03-04 07:03] LABS: Alanine Aminotransferase 16 U/L (12-78); Albumin Level 2.8 g/dl (3.5-5.0); Alkaline Phosphatase 74 U/L (38-126); Aspartate Amino Transferase 28 U/L (14-36); Bilirubin,Direct 0.1 mg/dl (0.0-0.4); Bilirubin,Indirect 0.8 mg/dL (0.0-0.9); Bilirubin,Total 0.9 mg/dl (0.2-1.3); Bilirubin,Unconjugated 0.8 mg/dL (0.0-1.1); Total Protein,Serum 5.2 g/dl (6.3-8.2)
--- NOTE | 2021-03-04 07:32 | P.PN_ITS ---
Internal Medicine - PN: Subj *Date: 03/04/21 *Time: 07:32 Interval history: Patient continues to have fevers with last fever being yesterday evening. She reports persistence of nausea. Last episode of true vomiting was yesterday evening. She remains on clear liquid diet. She has not had any diarrhea. Exam Vital signs and Labs for Last 24 Hours: Temp Pulse Resp BP Pulse Ox 98.4 F 77 18 129/66 94 L 03/04/21 03:46 03/04/21 03:46 03/04/21 03:46 03/04/21 03:46 03/04/21 03:46 Laboratory Results - last 24 hr 03/03/21 06:11: Total Counted 100, Neutrophils % (Manual) 92 H, Lymphocytes % (Manual) 3 L, Monocytes % (Manual) 4, Eosinophils % (Manual) 1, Platelet Estimate Normal, RBC Morphology Normal 03/03/21 06:11: Carbon Dioxide 30, Anion Gap 6.3, BUN 12, Creatinine 1.10 H, Estimated Creat Clear 56, Estimated GFR 48 L, Est GFR ( Amer) 59, Glucose 143 H, Calcium 8.5 D, Total Bilirubin 1.5 H, AST 42 H, ALT 22, Alkaline Phosphatase 82, Total Protein 5.9 L, Albumin 3.4 L D, Globulin 2.5, Albumin/Globulin Ratio 1.4 03/04/21 05:30: WBC 6.1 D, RBC 3.75 L, Hgb 11.7 L, Hct 35.2 L, MCV 93.7, MCH 31.2, MCHC 33.3, RDW 17.8 H, Plt Count 171, MPV 7.4, Neut % (Auto) 83.1 H, Lymph % (Auto) 6.7 L, [place] % (Auto) 5.0, Eos % (Auto) 4.7, Baso % (Auto) 0.5, Neut # (Auto) 5.1, Lymph # (Auto) 0.4 L, [place] # (Auto) 0.3, Eos # (Auto) 0.3, Baso # (Auto) 0.0 03/04/21 05:30: Total Bilirubin 0.9, Direct Bilirubin 0.1, Conjugated Bilirubin 0.0, Indirect Bilirubin 0.8, Unconjugated Bilirubin 0.8, AST 28 D, ALT 16 D, Alkaline Phosphatase 74, Total Protein 5.2 L, Albumin 2.8 L D I & O for Last 24 hours: Intake & Output 03/01/21 03/02/21 03/03/21 03/04/21 11:59 11:59 11:59 11:59 Intake Total 190 / 190 3033 / 3033 Output Total 0 / 0 Balance 190 / 190 3033 / 3033 Weight 177 lb 7 oz 179 lb 1 oz Microbiology Reports for the Last 24 Hours: Microbiology 03/03/21 21:15 Sputum - Expectorated Sputum Gram Stain - Final Narrative: Patient is in no distress. Lungs remain clear. Heart has a regular rate and rhythm. Abdomen is soft and nontender with active bowel sounds. White blood cell count is decreased to 6000 Assessment and Plan (1) Acute gastroenteritis Status: Acute Category: Medical Code(s): K52.9 - Noninfective gastroenteritis and colitis, unspecified (2) Hypokalemia Status: Acute Category: Medical Code(s): E87.6 - Hypokalemia (3) Coronary artery disease Status: Acute Category: Medical Code(s): I25.10 - Atherosclerotic heart disease of [place] coronary artery without angina pectoris (4) Pneumonia Status: Suspected Qualifiers: Pneumonia type: due to unspecified organism Laterality: right Lung location: upper lobe of lung Qualified Code(s): J18.9 - Pneumonia, unspecified organism Category: Medical Code(s): J18.9 - Pneumonia, unspecified organism - Assessment and plan all Dx Assessment and Plan for all problems:: 1. Continue IV fluids along with IV Invanz for possible GI infection and azithromycin for pneumonia 2. Continue clear liquids at this time 3. Await blood culture results
[2021-03-04 08:41] LABS: Procalcitonin 1.14 ng/mL (0.0-2.0)
--- NOTE | 2021-03-04 18:06 | PC.NURSE ---
Pt has been pleasant and cooperative this shift. A&O X4. No complaints of pain. Pt complained of nausea and dizziness X1 and received Zofran per MAR with favorable results. Temperature @ 0800 noted to be 100.6. After administration of Tylenol, temp. noted to be 99.1 and has remained stable ever since. Lungs CTA. No edema noted. LT weir abrasion dressing noted to be C/D/I. Pt ambulates with assistance X1 to/from the bathroom and throughout the room. Pt voids clear, yellow urine without issue. No BM this shift. Pt sat on the side of the bed for a few hours today. 20 G peripheral IV in the LT forearm is patent and infusing D5W 0.45% NS w/ 20 K+ @ 100 ML/HR. VSS. Call light within reach. Will continue to monitor.
[2021-03-05 04:00] VITALS: BP 143/76; PULSE 69; RESP 16; TEMP 36.6; O2SAT 99
--- NOTE | 2021-03-05 04:27 | PC.NURSE ---
Pt A&O x4 and has slept well through the night. No complaints of pain. Pt has been afebrile this shift. Lungs are CTA, on room air. No edema noted. Pt denies N/V this shift. Pt has had several small liquid BMs this shift. She was able eat a snack early in the shift without vomiting. Bowel sounds x4, abd sot and nontender. IV patent, D5 1/2 NS with 20 K @ 100. VSS, call light in reach, no concerns at this time.
[2021-03-05 05:39] VITALS: BMI 28.3
--- NOTE | 2021-03-05 07:45 | HMH.ACPN2 ---
Internal Medicine - PN: Subj *Date: 03/05/21 *Time: 07:45 Interval history: Patient has started to show some improvement in nausea and has been able to tolerate liquids and small bites of food. She continues to complain of some mild epigastric pain. Her last fever was approximately 24 hours ago. Exam Vital signs and Labs for Last 24 Hours: Temp Pulse Resp BP Pulse Ox 97.9 F 69 16 143/76 H 99 03/05/21 04:00 03/05/21 04:00 03/05/21 04:00 03/05/21 04:00 03/05/21 04:00 Laboratory Results - last 24 hr 03/04/21 05:36: Procalcitonin 1.14 I & O for Last 24 hours: Intake & Output 03/02/21 03/03/21 03/04/21 03/05/21 11:59 11:59 11:59 11:59 Intake Total 190 / 190 3273 / 3273 1878 / 1878 Output Total 0 / 0 900 / 900 Balance 190 / 190 3273 / 3273 978 / 978 Weight 177 lb 7 oz 179 lb 1 oz 180 lb 2 oz Microbiology Reports for the Last 24 Hours: Microbiology 03/02/21 12:51 Throat Group A Streptococcus Screen ([facility]) - Final Negative for Group A Streptococcus. 03/03/21 21:15 Sputum - Expectorated Sputum Gram Stain - Final Narrative: Patient is in no distress. Lungs are clear. Heart has a regular rate and rhythm. There is mild epigastric tenderness. Bowel sounds are present. Procalcitonin was greater than 1 yesterday and is pending this morning Assessment and Plan (1) Acute gastroenteritis Status: Acute Category: Medical Code(s): K52.9 - Noninfective gastroenteritis and colitis, unspecified (2) Hypokalemia Status: Acute Category: Medical Code(s): E87.6 - Hypokalemia (3) Coronary artery disease Status: Acute Category: Medical Code(s): I25.10 - Atherosclerotic heart disease of [place] coronary artery without angina pectoris (4) Pneumonia Status: Suspected Qualifiers: Pneumonia type: due to unspecified organism Laterality: right Lung location: upper lobe of lung Qualified Code(s): J18.9 - Pneumonia, unspecified organism Category: Medical Code(s): J18.9 - Pneumonia, unspecified organism - Assessment and plan all Dx Assessment and Plan for all problems:: 1. Await blood cultures. Continue Invanz 2. For patient's pneumonia she will be continued on azithromycin 3. Repeat procalcitonin this morning 4. DC IV fluids. Observe patient for another 24 hours to make sure that she continues her course of improvement. If she does anticipate discharge tomorrow
[2021-03-05 08:00] VITALS: BP 133/64; PULSE 66; RESP 16; TEMP 36.4; O2SAT 98
[2021-03-05 08:29] LABS: Basophils % 0.4 % (0.1-2.0); Eosinophils # 0.3 K/mm3 (0.0-0.4); Eosinophils % 6.1 % (0.1-12.0); Hemoglobin 11.1 g/dL (12.2-16.2); Lymphocytes # 0.7 K/mm3 (0.7-4.5); Mean Corpuscular HGB Conc 31.7 g/dL (31.8-35.4); Mean Corpuscular Hemoglobin 30.6 pg (27.0-31.2); Mean Corpuscular Volume 96.7 fl (81-99); Mean Platelet Volume 7.8 fl (7.4-10.4); Monocytes # 0.4 K/mm3 (0.1-1.0); Monocytes % 8.8 % (1.7-9.3); Neutrophils # 3.3 K/mm3 (1.8-7.8); Neutrophils % 69.6 % (37.0-80.0); Platelet Count 207 K/mm3 (142-424); Red Blood Count 3.62 M/mm3 (4.20-5.40); Red Cell Distribution Width 18.2 % (11.5-17.5); White Blood Count 4.8 K/mm3 (4.8-10.8)
[2021-03-05 08:54] LABS: Procalcitonin 0.608 ng/mL (0.0-2.0)
[2021-03-05 12:00] VITALS: BP 126/76; PULSE 70; RESP 16; TEMP 36.5; O2SAT 95
--- NOTE | 2021-03-05 14:40 | SW/DCPLANNER ---
PATIENT STATES SHE HAS NAUSEA AND STATED SHE HAS VOMITED BUT IT APPEARS SHE WAS SPITTING UP AND NOT TRULY VOMITED.. SHE RESIDES AT HOME AND HAS A GOOD FAMILY SUPPORT.. WILL CONTINUE ON HER ANTIBIOTIC AND MONITOR HER LABS, IF PATIENT REMAINS FEVER FREE AND DOES WELL MAY DISCHARGE IN THE AM PER DR PARIS... AT THIS TIME THERE ARE NO ORDERS FOR ANY HOME CARE...
[2021-03-05 15:39] VITALS: BP 139/66; PULSE 68; RESP 16; TEMP 36.5; O2SAT 94
--- NOTE | 2021-03-05 18:29 | PC.NURSE ---
HE IS AOX4, HAS NOT C/O PAIN, CHANGES POSITION PER SELF. LUNGS SOUNDS REMAIN CLEAR, ABD IS SOFT ROUND AND NON-TENDER, HER VITAL SIGNS HAVE BEEN STABLE
[2021-03-05 20:00] VITALS: BP 141/68; PULSE 71; RESP 22; TEMP 36.7; O2SAT 92; O2SAT 94
[2021-03-06] VITALS: BP 127/67; PULSE 67; RESP 16; TEMP 36.8; O2SAT 94
[2021-03-06 04:00] VITALS: BP 149/73; PULSE 64; RESP 20; TEMP 36.4; O2SAT 96
[2021-03-06 05:29] VITALS: BMI 27.8
--- NOTE | 2021-03-06 06:30 | PC.NURSE ---
patient rested with eyes closed most of shift; VS stable; shows no s/s of acute distress noted at this time; call light within reach; bed at lowest level for safety; will continue to monitor.
--- NOTE | 2021-03-06 07:39 | HMH.DCSUM ---
General - General Admission date:: 03/02/21 Discharge date: 03/06/21 HPI HPI: 75-year-old female began vomiting yesterday afternoon around lunchtime and when symptoms persisted until today she sought treatment at the urgent treatment clinic. From the [facility] she was referred over to the ER. She reports onset of vomiting at lunch yesterday. She does not know how many times she vomited. She has been unable to hold down liquids or solids until she was in the emergency department which point she did tolerate some tea. She denies fevers or chills. She denies cough, shortness of breath, chest pain. She has not had any diarrhea. Patient has had a cholecystectomy. She denies any history of pancreatitis (CT scan suggestive of chronic pancreatitis). The last thing she had to eat before symptoms began was a homemade sausage sandwich. Work-up in the ER raise suspicion for bacterial infection due to elevated white blood cell count with left shift. Chest x-ray showed a questionable right upper lobe infiltrate. CT scan did not reveal any intra-abdominal abscess or infectious process. Patient was hydrated in the emergency department and while she admitted she felt better attempts at drinking caused retching. Patient has been admitted for observation. She has been ordered IV azithromycin and Rocephin to treat the possibility of community-acquired pneumonia. Hospital Course Hospital Course: Patient was admitted with gastroenteritis symptoms and shortly after admission developed a fever. When fevers persisted to the morning patient had blood cultures drawn. Patient had been started on IV antibiotics of Rocephin and azithromycin due to suspicion of pneumonia in the right upper lobe on chest x-ray. Patient had no respiratory symptoms. Patient's white blood cell count remained mildly elevated and fevers persisted. Due to the patient's symptoms being primarily in the GI tract her Rocephin was discontinued in favor of Invanz. Azithromycin was continued. After changing antibiotics patient's white blood cell count decreased. Blood cultures are ultimately returned negative. After the change in antibiotics patient also defervesced and his symptoms of nausea and vomiting improved. Diet was slowly advanced. Once patient was tolerating her diet and was afebrile she was discharged home. Blood cultures revealed no growth. Patient was discharged home on additional 4 days of Levaquin. Objective Vital signs: Temp Pulse Resp BP Pulse Ox 97.5 F L 64 20 149/73 H 96 03/06/21 04:00 03/06/21 04:00 03/06/21 04:00 03/06/21 04:00 03/06/21 04:00 no acute distress - *Routine HEENT Exam Head: Present: normocephalic Eye: Present: EOMI, PERRL ENT: Present: mucous membranes moist - *Routine Neck Exam Present: supple - *Routine Respiratory Exam Present: CTA bilaterally - *Routine Cardiovascular Exam Present: RRR - *Routine Abdominal Exam Present: soft, normoactive bowel sounds. Absent: tenderness - *Routine Extremities Exam Absent: cyanosis, clubbing, edema - *Routine Skin Exam Present: warm. Absent: rash - Detailed Eye Exam Eyelids: Bilateral normal inspection Results Labs on day of discharge: Labs from last 24 hours 03/05/21 03/05/21 08:01 08:01 WBC 4.8 RBC 3.62 L Hgb 11.1 L Hct 35.0 L MCV 96.7 MCH 30.6 MCHC 31.7 L RDW 18.2 H Plt Count 207 MPV 7.8 Neut % (Auto) 69.6 Lymph % (Auto) 15.0 [place] % (Auto) 8.8 Eos % (Auto) 6.1 Baso % (Auto) 0.4 Neut # (Auto) 3.3 Lymph # (Auto) 0.7 [place] # (Auto) 0.4 Eos # (Auto) 0.3 Baso # (Auto) 0.0 Procalcitonin 0.608 Preliminary micro results at discharge 03/03/21 21:15 Sputum Culture - Preliminary Sputum - Expectorated Sputum 03/03/21 09:52 Blood Culture - Preliminary Blood - Central NO GROWTH AFTER 48 HOURS 03/03/21 09:52 Blood Culture - Preliminary Blood - Central NO GROWTH AFTER 48 HOURS DS: D
[2021-03-06 07:47] VITALS: BP 128/71; PULSE 76; RESP 18; TEMP 36.8; O2SAT 95
== END 2021-03-06 09:45 | disposition home or self-care (01) | DRG 195 ==
LOC: ER 12:40 → UTC 12:41 → ER 13:57 → 2ND 16:08
PROVIDERS: Nurse Practitioner Family; Admitting Provider Family Medicine; Emergency Provider Emergency Medicine; PCP Nurse Practitioner Family; Visit Provider Family Medicine
DX: J18.9 Pneumonia, unspecified organism (principal); K52.9 Noninfective gastroenteritis and colitis, unspecified; I25.10 Atherosclerotic heart disease of native coronary artery without angina pectoris; E78.5 Hyperlipidemia, unspecified; E03.9 Hypothyroidism, unspecified; Z79.52 Long term (current) use of systemic steroids; Z79.02 Long term (current) use of antithrombotics/antiplatelets; E87.6 Hypokalemia; I48.91 Unspecified atrial fibrillation; K21.9 Gastro-esophageal reflux disease without esophagitis; I10 Essential (primary) hypertension; G89.29 Other chronic pain; M54.9 Dorsalgia, unspecified
CPT/HCPCS: 36415; 71046; 74177; 80053; 80076; 81001; 84145; 85007; 85025; 87040; 87070; 87205; 87581; 87633; 87798; 87804; 87880; 96374; 99282; J0456; J1335; J2405; Q9967

== ENCOUNTER 2021-05-03 11:06 | Day surgery (SDC) | payer MEDICARE, OTHER, SELFPAY ==
[2021-05-03 11:40] VITALS: BP 144/80; PULSE 75; RESP 18; TEMP 36.4; O2SAT 97; BMI 27.3
[2021-05-03 11:41] VITALS: BP 137/84; BP 161/89; PULSE 77; PULSE 79; RESP 18; O2SAT 98
--- NOTE | 2021-05-03 11:48 | P.PCN_ITS ---
- Procedure Date: 05/03/21 Time: 11:48 Anesthesiologist:: Kiersten Quezada APRN Complications:: None Pre-procedure Diagnosis:: Degenerative disc disease lumbar spine with lumbar radiculopathy symptoms, postlaminectomy syndrome lumbar spine, history of compression fracture Post-procedure Diagnosis:: Same Indications for Procedure:: Patient is a pleasant 75-year-old white female who presents today for intrathecal pain pump refill and reprogram. She is being treated for degenerative disc disease lumbar spine with lumbar radiculopathy symptoms. Patient rates her pain a 6 out of 10 today. She says she is doing well overall but would like a small increase. We will increase her today to see if she gets relief. She is currently on morphine at 1.5 mg/day. Physical exam General: Alert and oriented x3, no acute distress, pleasant and cooperative, [on room air] Lungs: Respirations even and unlabored, symmetrical chest expansion Eyes: PERRL Musculoskeletal: Flexion and extension of lumbar spine somewhat guarded secondary to pain, deep tendon reflexes normal, strength in upper and lower extremities [5/5], [abnormal gait noted] Neurological: Speech clear, product development specialist equal, no gross sensory deficit Procedure Details:: Informed consent was obtained and the risk and benefits of the procedure were explained to the patient. The patient was taken to the procedure room where noninvasive monitoring was placed including noninvasive blood pressure cuff and pulse oximeter. Patient's pump was interrogated. The area over the pump was cleansed with chlorhexidine as a cleansing solution. In sterile fashion the pump was accessed with a 22-gauge needle. Approximately 4 mL mls of the pump solution was removed and discarded appropriately. The pump was then refilled with 20 mL's of morphine 10 mg per mill. The needle was withdrawn and a bandage was placed over the puncture site. The infusion rate was reprogrammed at morphine at 1.7 mg/day. The patient tolerated well with no complication. Plan and Disposition:: We will see the patient back at her next intrathecal refill and reprogram. Patient has been instructed to contact the clinic with any concerns before the next appointment. Dr. Tijerina has reviewed this note and agrees with this plan of care. This note was dictated using voice recognition software and make contain errors or omissions.
[2021-05-03 11:57] VITALS: BP 137/75; PULSE 75; RESP 20; O2SAT 97
== END 2021-05-03 12:00 | disposition home or self-care (01) ==
LOC: SC.PAINP 11:08
PROVIDERS: PCP Nurse Practitioner Family; Visit Provider Clinical Nurse Specialist Family Health
DX: M51.16 Intervertebral disc disorders with radiculopathy, lumbar region (principal); M96.1 Postlaminectomy syndrome, not elsewhere classified; Z87.39 Personal history of other diseases of the musculoskeletal system and connective tissue; Z45.1 Encounter for adjustment and management of infusion pump
CPT/HCPCS: 62370

== ENCOUNTER 2021-05-14 09:57 | Emergency (ER) | payer MEDICARE, OTHER, SELFPAY ==
[2021-05-14] VITALS (7 sets, daily range): BP systolic 103–140; BP diastolic 56–101; PULSE 86–120; RESP 16–22; TEMP 36.6–36.9; O2SAT 94–99; BMI 27.2
--- NOTE | 2021-05-14 10:26 | HMH.EDEXTP ---
ED Disposition Clinical Impression: Lower extremity edema, Dehydration Cellulitis Qualifiers: Site of cellulitis: extremity Site of cellulitis of extremity: lower extremity Laterality: right Qualified Code(s): L03.115 - Cellulitis of right lower limb Disposition: Home, Self-Care Condition on Discharge: Good Instructions: DI for Cellulitis -- Adult, DI for Peripheral Edema-Unilateral Additional Instructions: Call your director of undergraduate admissions this afternoon and ask for advice on continuation of torsemide versus switching back to furosemide. Return to the emergency department if you develop fever or worsening symptoms. Keep leg elevated to decrease swelling. Take antibiotics as prescribed and until complete. Referrals: Aurelia Remy APRN [Primary Care Provider] - 3 days - Critical Care Critical Care Time: No Attestation: On 05/14/21, the high probability of a clinically significant, sudden or life threatening deterioration of the following system(s) required my full and direct attention, intervention and personal management. The time I documented below is in addition to time spent performing reported procedures but includes the following listed in this critical care notation. Medical Decision Making - Medical Records Medical records reviewed: Yes: I reviewed the patient's medical records. - [place] Inquiry Pt receiving controlled substance: No Vital Signs: 05/14/21 10:17 05/14/21 12:17 Temperature 98.4 F 98.1 F Temperature Source Oral Oral Pulse Rate 88 Pulse Rate [Right] 120 H Respiratory Rate 18 22 Blood Pressure 127/97 H Blood Pressure [Right Arm] 140/101 H Blood Pressure Mean [Right Arm] 114 Blood Pressure Source Automatic Cuff Blood Pressure Source [Right Arm] Automatic Cuff Blood Pressure Position Sitting Blood Pressure Position [Right Arm] Sitting 02 Sat by Pulse Oximetry 95 94 L - Lab Data Lab results reviewed: Yes: I reviewed the patient's lab results. Lab Results 05/14/21 10:30: WBC 9.7, RBC 4.71, Hgb 14.0, Hct 41.8, MCV 88.7, MCH 29.7, MCHC 33.5, RDW 16.7, Plt Count 278, MPV 7.1 L, Neut % (Auto) 88.6 H, Lymph % (Auto) 7.8 L, [place] % (Auto) 2.5, Eos % (Auto) 0.8, Baso % (Auto) 0.3, Neut # (Auto) 8.6 H, Lymph # (Auto) 0.8, [place] # (Auto) 0.2, Eos # (Auto) 0.1, Baso # (Auto) 0.0, Total Counted 100, Neutrophils % (Manual) 79 H, Lymphocytes % (Manual) 19, Monocytes % (Manual) 2, Platelet Estimate Normal, RBC Morphology Normal 05/14/21 10:30: D-Dimer 4.07 H 05/14/21 10:30: Sodium 138, Potassium 3.5, Chloride 94 L, Carbon Dioxide 32 H, Anion Gap 15.5 H, BUN 30 H, Creatinine 1.20 H, Estimated Creat Clear 50, Estimated GFR 44 L, Est GFR ( Amer) 53 L, Glucose 98, Calcium 9.2 Result diagrams: 05/14/21 10:30 05/14/21 10:30 Orders (Tests/Meds): ED MEDICATIONS Discontinued Medications Generic Name Dose Route Start Last Admin Trade Name Freq PRN Reason Stop Dose Admin Cephalexin HCl 500 mg 05/14/21 12:20 Cephalexin 500mg Capsule PO 05/14/21 12:21 ONCE ONE Protocol Sodium Chloride 1,000 mls @ 999 mls/hr 05/14/21 11:15 05/14/21 11:17 Sod Chlor 0.9% 1000ml Bag IV 05/14/21 12:15 999 mls/hr .Q1H1M KIM Administration Ondansetron HCl 4 mg 05/14/21 11:14 05/14/21 11:17 Ondansetron 4mg/2ml Vial IV 05/14/21 11:15 4 mg ONCE ONE Administration - US Data US Images: Lower Extremity Findings Narrative: health record technician reports no mid to proximal DVT, difficulty with visualization distally secondary to edema and pain - ECG Data Tracing #1 EKG at 1109 shows sinus tachycardia with a rate of 116. No acute ST segment elevation or depression. Intraventricular conduction delay is present. Normal [place], prolonged QTC intraventricular conduction delay. Medical Decision Narrative: Arrives with a right lower extremity pain. She has chronic swelling, but has been having weeping from the leg for several days and feels like the leg is more red than normal. She w
[2021-05-14 10:42] LABS: Basophils % 0.3 % (0.1-2.0); Eosinophils # 0.1 K/mm3 (0.0-0.4); Eosinophils % 0.8 % (0.1-12.0); Hematocrit 41.8 % (37.0-47.0); Lymphocytes # 0.8 K/mm3 (0.7-4.5); Lymphocytes % 7.8 % (10-50); Mean Corpuscular HGB Conc 33.5 g/dL (31.8-35.4); Mean Corpuscular Hemoglobin 29.7 pg (27.0-31.2); Mean Corpuscular Volume 88.7 fl (81-99); Mean Platelet Volume 7.1 fl (7.4-10.4); Monocytes # 0.2 K/mm3 (0.1-1.0); Monocytes % 2.5 % (1.7-9.3); Neutrophils # 8.6 K/mm3 (1.8-7.8); Neutrophils % 88.6 % (37.0-80.0); Platelet Count 278 K/mm3 (142-424); Red Blood Count 4.71 M/mm3 (4.20-5.40); Red Cell Distribution Width 16.7 % (11.5-17.5); White Blood Count 9.7 K/mm3 (4.8-10.8)
[2021-05-14 10:45] LABS: MANUAL DIFFERENTIAL MANUAL DIFFERENTIAL (MANUAL DIFF)
[2021-05-14 10:53] LABS: Chloride 94 mmol/L (98-107); Potassium 3.5 mmoL/L (3.5-5.1); Sodium 138 mmol/L (136-145)
[2021-05-14 10:56] LABS: Anion Gap 15.5 mEq/L (5-15); Blood Urea Nitrogen 30 mg/dl (7-17); Carbon Dioxide 32 mmol/L (22.0-30.0); Creatinine Clearance Estimated 50 mL/min (50-200); Estimated Glomerular Filt Rate 44 ml/min (>60); GFR (African American) 53 ML/MIN (>60); Lymphocytes % 19 % (10-50); Monocytes % 2 % (2-9); Neutrophils % 79 % (42-76); Platelet Estimate Normal; RBC Morphology Normal; Total Cells Counted 100
[2021-05-14 10:57] LABS: Calcium 9.2 mg/dl (8.4-10.2); Glucose 98 mg/dl (74-100)
[2021-05-14 11:02] LABS: D-Dimer 4.07 ug/mL (0.0-0.5)
--- NOTE | 2021-05-14 11:09 | ECG_ITS ---
APPROVED REPORT Exam: Resting ECG HR:116 bpm ECG Measurements Heart Rate 116 AXES TX 162 P 79 QRSd 152 QRS -82 QT 372 T 64 QTc 517 Conclusion Sinus tachycardia Left axis deviation Nonspecific intraventricular block Possible Lateral infarct, age undetermined Inferior infarct, age undetermined Abnormal ECG Electronically signed by : Christian Gross, 05/15/2021 07:19:11
--- NOTE | 2021-05-14 11:14 | CA_ITS ---
APPROVED REPORT Right Lower Extremity Venous Study for DVT. Deputy Fire Chief: CT Indications Lower Extremity Pain: Right Lower Extremity Edema: Right Stasis Disease RLE very angry, red, wheeping, hot to touch. very painful Medications Aspirin Pt took Plavix for 4 yrs changed to ASA 81 mg 4 days ago. Vein Imaging EIV (R): Not Visualized CFV (R): compressive, spontaneous, phasic, augmentation SFJ (R): compressive, spontaneous, phasic, augmentation FEM (R): compressive, spontaneous, phasic, augmentation POP (R): compressive, spontaneous, phasic, augmentation DFV (R): compressive, spontaneous, phasic, augmentation PTV (R): Not Visualized GSV (R): compressive, spontaneous, phasic, augmentation SSV (R): Not Visualized Findings RLE negative for DVT/SVT Vessels compressible Distal portion of the PT and Peroneal veins not visualized due to edema and pain. Difficult exam. Conclusion RLE negative for DVT/SVT Vessels compressible Distal portion of the PT and Peroneal veins not visualized due to edema and pain. Difficult exam. Electronically signed by : Tee Barnett MD 05/14/2021 13:07:41
[2021-05-14 16:56] LABS: POC Glucose,Bedside 78 (70-110)
== END 2021-05-14 12:47 | disposition home or self-care (01) ==
PROVIDERS: Emergency Provider Emergency Medicine; PCP Nurse Practitioner Family
DX: L03.115 Cellulitis of right lower limb (principal); E86.0 Dehydration; I10 Essential (primary) hypertension; K21.9 Gastro-esophageal reflux disease without esophagitis; I48.91 Unspecified atrial fibrillation; E78.5 Hyperlipidemia, unspecified; I25.10 Atherosclerotic heart disease of native coronary artery without angina pectoris; Z79.899 Other long term (current) drug therapy
CPT/HCPCS: 80048; 82962; 85007; 85025; 85378; 93005; 93041; 93971; 96365; 96375; 99282; J2405

== ENCOUNTER 2021-05-14 16:00 | Inpatient (IN) | payer MEDICARE, OTHER, SELFPAY ==
[2021-05-14] VITALS (21 sets, daily range): BP systolic 73–116; BP diastolic 25–63; PULSE 85–124; RESP 18–34; TEMP 36.6–37.9; O2SAT 91–100; BMI 28.0; BMI 27.5
--- NOTE | 2021-05-14 15:53 | ECG_ITS ---
APPROVED REPORT Exam: Resting ECG HR:95 bpm ECG Measurements Heart Rate 95 AXES TX 168 P 5 QRSd 144 QRS -70 QT 404 T 66 QTc 507 Conclusion Normal sinus rhythm Left axis deviation Nonspecific intraventricular block Possible Lateral infarct, age undetermined Inferior infarct, age undetermined Abnormal ECG Electronically signed by : Christian Gross, 05/15/2021 07:14:10
[2021-05-14 16:17] LABS: POC Glucose,Bedside 101 (70-110)
--- NOTE | 2021-05-14 16:39 | CT_ITS ---
PROCEDURE INFORMATION: Exam: CT Head Without Contrast Exam date and time: 05/14/2021 4:39 PM Age: 75 years old Clinical indication: Altered mental status/memory loss; Patient HX: AMS TECHNIQUE: Imaging protocol: Computed tomography of the head without contrast. Radiation optimization: All CT scans at this facility use at least one of these dose optimization techniques: automated exposure control; mA and/or kV adjustment per patient size (includes targeted exams where dose is matched to clinical indication); or iterative reconstruction. COMPARISON: HEADWO CT head/brain wo con 01/24/2019 10:49 AM FINDINGS: Brain: There is age-appropriate cerebral atrophy. Mild changes of chronic small vessel ischemia within the cerebral white matter regions bilaterally. No acute infarct or hemorrhage. Cerebral ventricles: No ventriculomegaly. Paranasal sinuses: Visualized sinuses are unremarkable. No fluid levels. Mastoid air cells: Visualized mastoid air cells are well aerated. Bones/joints: Unremarkable. No acute fracture. Soft tissues: Unremarkable. IMPRESSION: No acute intracranial abnormality.
[2021-05-14 16:47] LABS: Basophils # 0.1 K/mm3 (0-0.2); Basophils % 0.3 % (0.1-2.0); Eosinophils # 0.1 K/mm3 (0.0-0.4); Eosinophils % 0.3 % (0.1-12.0); Hematocrit 43.6 % (37.0-47.0); Hemoglobin 14.3 g/dL (12.2-16.2); Lymphocytes % 5.5 % (10-50); Mean Corpuscular HGB Conc 32.8 g/dL (31.8-35.4); Mean Corpuscular Hemoglobin 29.5 pg (27.0-31.2); Mean Corpuscular Volume 89.9 fl (81-99); Mean Platelet Volume 7.1 fl (7.4-10.4); Monocytes # 0.7 K/mm3 (0.1-1.0); Monocytes % 4.1 % (1.7-9.3); Neutrophils # 16.2 K/mm3 (1.8-7.8); Neutrophils % 89.9 % (37.0-80.0); Platelet Count 264 K/mm3 (142-424); Red Blood Count 4.85 M/mm3 (4.20-5.40); Red Cell Distribution Width 16.8 % (11.5-17.5)
--- NOTE | 2021-05-14 16:50 | PC.NURSE ---
fsbs 78
[2021-05-14 16:52] LABS: Microscopic, Urine URINE MICROSCOPIC (MICROSCOPIC)
[2021-05-14 16:54] LABS: Blood Urea Nitrogen 32 mg/dl (7-17); Carbon Dioxide 35 mmol/L (22.0-30.0); Chloride 93 mmol/L (98-107); Creatinine Clearance Estimated 34 mL/min (50-200); Estimated Glomerular Filt Rate 27 ml/min (>60); GFR (African American) 33 ML/MIN (>60); Glucose 101 mg/dl (74-100); Sodium 136 mmol/L (136-145)
[2021-05-14 16:55] LABS: Ethyl Alcohol < 10 mg/dl (0-10)
--- NOTE | 2021-05-14 17:03 | HMH.EDWEAK ---
ED Disposition Clinical Impression: Altered mental status Qualifiers: Altered mental status type: somnolence Qualified Code(s): R40.0 - Somnolence Sepsis Qualifiers: Sepsis type: sepsis due to unspecified organism Sepsis acute organ dysfunction status: unspecified Qualified Code(s): A41.9 - Sepsis, unspecified organism Disposition: Admitted As Inpatient Condition on Discharge: Serious - Critical Care Critical Care Time: Yes Attestation: On 05/14/21, the high probability of a clinically significant, sudden or life threatening deterioration of the following system(s) required my full and direct attention, intervention and personal management. The time I documented below is in addition to time spent performing reported procedures but includes the following listed in this critical care notation. Total Critical Care Time: 60 Vital system(s) involved:: Circulatory Failure, Central Nervous System, Metabolic Failure, Respiratory Failure, Renal Failure, Shock (Septic) My critical care processes included: Assessment & monitoring of V/S, Initial and Re-exams, Data Review/Interpretation, Coordinating Care, Medication Orders and management, Documentation Medical Decision Making - Medical Records Medical records reviewed: Yes: I reviewed the patient's medical records. - Armani Inquiry Pt receiving controlled substance: No Vital Signs: 05/14/21 16:01 Temperature 97.9 F Temperature Source Oral Pulse Rate [Right] 104 H Respiratory Rate 19 Blood Pressure [Right Arm] 96/52 L Blood Pressure Mean [Right Arm] 66 Blood Pressure Source [Right Arm] Automatic Cuff Blood Pressure Position [Right Arm] Sitting 02 Sat by Pulse Oximetry 100 - Lab Data Lab results reviewed: Yes: I reviewed the patient's lab results. Lab Results 05/14/21 16:06: POC Glucose 101 05/14/21 16:10: WBC 18.0 H D, RBC 4.85, Hgb 14.3, Hct 43.6, MCV 89.9, MCH 29.5, MCHC 32.8, RDW 16.8, Plt Count 264, MPV 7.1 L, Neut % (Auto) 89.9 H, Lymph % (Auto) 5.5 L, [place] % (Auto) 4.1, Eos % (Auto) 0.3, Baso % (Auto) 0.3, Neut # (Auto) 16.2 H, Lymph # (Auto) 1.0, [place] # (Auto) 0.7, Eos # (Auto) 0.1, Baso # (Auto) 0.1 05/14/21 16:10: Sodium 136, Potassium 3.0 L, Chloride 93 L, Carbon Dioxide 35 H, Anion Gap 11.0, BUN 32 H, Creatinine 1.80 H D, Estimated Creat Clear 34, Estimated GFR 27 L, Est GFR ( Amer) 33 L D, Glucose 101 H, Calcium 9.0, TSH 4.81 H 05/14/21 16:10: Free T4 2.14 05/14/21 16:10: Plasma/Serum Alcohol < 10 05/14/21 16:45: Urine Color Yellow, Urine Appearance Clear, Urine pH 6.5, Ur Specific [place] 1.010, Urine Protein Negative, Urine Glucose (UA) Negative, Urine Ketones Negative, Urine Blood Negative, Urine Nitrate Negative, Urine Bilirubin Negative, Urine Urobilinogen 0.2, Ur Leukocyte Esterase Negative, Urine RBC Occasional, Urine WBC Occasional, Ur Squamous Epith Cells None, Urine Bacteria None 05/14/21 16:45: Urine Opiates Screen Positive H, Urine Methadone Screen Negative, Ur Barbituates Screen Negative, Ur Phencyclidine Scrn Negative, Ur Amphetamines Screen Negative, U Benzodiazepines Scrn Negative, Urine Cocaine Screen Negative, U Marijuana (THC) Screen Negative Result diagrams: 05/14/21 16:10 05/14/21 16:10 Orders (Tests/Meds): ED MEDICATIONS Generic Name Dose Route Start Last Admin Trade Name Freq PRN Reason Stop Dose Admin Sodium Chloride 1,000 mls @ 999 mls/hr 05/14/21 17:45 Sod Chlor 0.9% 1000ml Bag IV 05/14/21 18:45 .Q1H1M KIM Potassium Chloride/Water 100 mls @ 100 mls/hr 05/14/21 18:11 Potassium Chloride 10meq/100ml Ivpb IV 05/14/21 19:10 ONCE ONE Sodium Chloride 10 ml 05/14/21 17:34 Sodium Chloride 0.9% 10ml Vial IV 06/13/21 17:33 NEEDED PRN to Dilute Lorazepam inj Discontinued Medications Generic Name Dose Route Start Last Admin Trade Name Freq PRN Reason Stop Dose Admin Dextrose 12.5 ml 05/14/21 17:02 Dextrose 50% 50ml Syringe (Crash Cart) IVP 05/14/21 17:03 ONCE ONE Cefepi
[2021-05-14 17:08] LABS: Appearance,Urine CLEAR (Clear); Bilirubin,Urine Negative (Negative); Blood, Urine Negative (Negative); Color,Urine YELLOW (Yellow); Glucose,Urine (UA) Negative (Negative); Ketones,Urine Negative (Negative); Leukocyte Esterase,Urine Negative (Negative); Nitrate,Urine Negative (Negative); PH,Urine 6.5 (5.0-8.5); Protein,Urine Negative (Negative); Urobilinogen,Urine 0.2 EU/dl (0.2)
[2021-05-14 17:14] LABS: Amphetamine/Metha Screen,Urine Negative ng/ml (<1000)
[2021-05-14 17:15] LABS: Barbiturates Screen,Urine Negative ng/ml (<200)
[2021-05-14 17:16] LABS: Benzodiazepines Screen,Urine Negative ng/ml (<200); Cannabinoid Screen,Urine Negative ng/ml (<50)
[2021-05-14 17:17] LABS: Cocaine Screen,Urine Negative ng/ml (<300)
[2021-05-14 17:18] LABS: Methadone Screen,Urine Negative ng/ml (<300); Opiate Screen,Urine Positive ng/ml (<300)
[2021-05-14 17:19] LABS: Phencyclidine Screen,Urine Negative ng/ml (<25)
[2021-05-14 17:19] LABS: Free T4 (Free Thyroxine) 2.14 ng/dl (0.78-2.19)
[2021-05-14 17:25] LABS: Thyroid Stimulating Hormone 4.81 uIU/mL (0.465-4.68)
--- NOTE | 2021-05-14 17:36 | XR_ITS ---
PROCEDURE INFORMATION: Exam: XR Chest Exam date and time: 05/14/2021 5:36 PM Age: 75 years old Clinical indication: Shortness of breath; Patient HX: SOA TECHNIQUE: Imaging protocol: XR of the chest. Views: 1 view. COMPARISON: CT ANGIO CHEST 05/14/2021 5:09 PM FINDINGS: Lungs: Subsegmental atelectasis or linear scarring in the mid left lung. No acute airspace consolidation. Pleural spaces: Unremarkable. No pleural effusion. No pneumothorax. Heart/Mediastinum: Cardiomegaly. Vasculature: Aortic tortuosity. Bones/joints: Multilevel kyphoplasty. IMPRESSION: No acute findings.
[2021-05-14 17:45] LABS: RBC,Urine Occasional #/hpf (0-3); WBC,Urine Occasional #/hpf (0-3)
--- NOTE | 2021-05-14 17:56 | ECG_ITS ---
APPROVED REPORT Exam: Resting ECG HR:139 bpm ECG Measurements Heart Rate 139 AXES QRSd 130 QRS -67 QT 334 T 84 QTc 508 Conclusion Poor data quality, interpretation may be adversely affected Undetermined rhythm Left axis deviation Nonspecific intraventricular block Abnormal ECG Electronically signed by : Christian Gross, 05/15/2021 07:14:02
[2021-05-14 18:24] LABS: Ammonia < 9 umol/L (9-30)
[2021-05-14 18:27] LABS: Activated Partial Thrombo Time 23.9 seconds (22.8-30.6); Prothrombin Time 11.9 seconds (10.1-12.5)
[2021-05-14 18:30] LABS: Lactic Acid 7.8 mmol/L (0.7-2.1)
--- NOTE | 2021-05-14 18:30 | PC.NURSE ---
notified ER of critical lactic acid
[2021-05-14 18:32] LABS: INR 1.01 (0.9-1.1)
[2021-05-14 18:45] LABS: VBG Base Excess -0.3 mmol/L (-2.4-2.3); VBG HCO3 26.2 mmol/L (23-30); VBG Oxygen Saturation 61.7 % (50-70); VBG PO2 38.1 mmol/L (28-40); VBG Total CO2 27.9 mmol/L (23-27)
--- NOTE | 2021-05-14 18:49 | PC.NURSE ---
pt had large BM, cleaned up and readjusted in bed, pt grand daughter at .
--- NOTE | 2021-05-14 18:50 | PC.NURSE ---
ABIMAEL BROWNLEE notified of critical ABG results on pt at this time.
[2021-05-14 19:35] LABS: Coronavirus 19, PCR Not Detected (NotDetected); Influenza A, PCR Not Detected (NotDetected); Influenza B, PCR Not Detected (NotDetected)
[2021-05-14 19:52] LABS: POC Glucose,Bedside 88 (70-110)
--- NOTE | 2021-05-14 20:02 | PC.NURSE ---
pt is being transferred to the floor by arlin pereira
--- NOTE | 2021-05-14 20:04 | PC.NURSE ---
PT ARRIVED TO FLOOR VIA STRETCHER FROM ED/STAFF AT 2005
--- NOTE | 2021-05-14 21:27 | PC.NURSE ---
FAMILY SIGNED DNR AT THIS TIME. 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 PT. FAMILY OK WITH IV FLUIDS AND CONTINUING BIPAP AT THIS TIME.
[2021-05-14 22:02] LABS: Reflex Lactic Add Lactic Reflex
--- NOTE | 2021-05-14 23:37 | PC.NURSE ---
UPON ADMISSION PT. BP: 88/52 MANUALLY, PT. ABLE TO MAKE A FIST. 2051- BP: 73/33 MANUALLY. MD RAINA NOTIFIED (2049) AND AWARE OF BP AND MENTAL STATUS. NEW ORDERS: NS IVF BOLUS 500 ML; START LEVOPHED NOW. LEVOPHED STARTED AT 26 MCG/MIN. SBP >90. CONTINUE 2239- NOTIFIED MD OF LACTIC: 4. MD AWARE OF DECREASED UO. NEW ORDER: MAINTENANCE IVF CHANGE TO D5 1/2 NS WITH 20 MEQ K @ 200 ML/HR. 2299- TITRATED GTT TO 28 MCG/MIN. BP CURRENTLY 109/47; RESTING IN BED WITH EYES CLOSED AT THIS TIME.
[2021-05-14 23:53] LABS: Reflex Lactic (2 hrs) Add Lactic Reflex
[2021-05-15] VITALS (30 sets, daily range): BP systolic 92–138; BP diastolic 33–90; PULSE 70–95; RESP 14–23; TEMP 36.7–38.2; O2SAT 89–100; BMI 28.3
[2021-05-15 00:28] LABS: Lactic Acid Follow up (RFLX 2) 5.6 mmol/L (0.7-2.1)
--- NOTE | 2021-05-15 01:59 | PC.NURSE ---
0130- TITRATED GTT TO 26 MCG/MIN BP 109/47. PT. OPENS EYES TO VOICE AT THIS TIME AND CAN MUMBLE SOME WORDS
--- NOTE | 2021-05-15 02:05 | PC.WOUNDNOTE ---
SKIN TEAR TO RFA; 2 CM IN LENGTH AND 0.5 CM IN WIDTH. SEROSANGUINEOUS DRAINAGE. DSG APPLED. RFA DISCOLORED.
--- NOTE | 2021-05-15 07:24 | PC.NURSE ---
0450: titrated gtt to 26 mcg/ min 0620: titrated gtt to 24 mcg/ min 0650: titrated gtt to 20 mcg/min BP: 117/42 at this time
--- NOTE | 2021-05-15 07:30 | PC.NURSE ---
BP 108/74 (85). Levo gtt decreased to 15mcg/min from 20mcg/min
--- NOTE | 2021-05-15 07:45 | PC.NURSE ---
Addendum entered by Madisyn Markham RN 05/15/21 08:18: Dr. Foy @ BS. 100% Bipap turned OFF and 2L NC applied. RT (Va) notified. Original Note: BP 92/33 (52). Levo gtt increased to 17mcg/min
--- NOTE | 2021-05-15 07:57 | HMH.HP ---
*Admission Date: 05/14/21 *Chief complaint: Altered mental status *History of present illness: 75-year-old female presented to the emergency department twice yesterday. The first visit was for complaint of right lower extremity pain and redness. Patient was diagnosed with a cellulitis of the leg and started on oral antibiotics and discharge. Shortly after discharge the patient began showing signs of mental status changes with impaired memory and apparent hallucinations. Once patient returned home her level of consciousness waxed and waned. Family became concerned and contacted EMS. Patient was brought to the emergency department for repeat evaluation. In the emergency department patient continued to have a fluctuating level of consciousness. While she could answer questions appropriately at times at other times she was somnolent. Patient's exam had not changed since the morning with persistence of the redness of the right lower extremity. Her white blood cell count had gone from normal to 18,000 in that short period of time. Patient began to show signs of increasing difficulty breathing. Patient was given Narcan due to the possibility of opiate intoxication. Patient has a pain pump managed by [facility] pain management. The administration of Narcan sent the patient into acute withdrawal and she was given benzodiazepines to sedate her and placed on BiPAP. Patient was hypotensive in the emergency department and once she arrived to the floor patient was started on Levophed. This morning patient's family is at bedside. Patient awakens when her name is called. She can answer questions appropriately and is oriented to person, place, time. She reports pain in her right lower extremity. She had been having cold chills at home but is unaware of any fevers [facility] History I have reviewed the patient's past medical history: Yes Medical History: Reports:: Arrhythmia, Atrial Fibrillation, Coronary Artery Disease, Gastroesophageal Reflux Disease(GERD), Hyperlipidemia, Hypertension, Kidney Stones, Palpitations Denies:: Cancer, Diabetes Mellitus Type 1, Diabetes Mellitus Type 2, Internal Pacemaker, MRSA, Seizures *Have you ever received a pneumonia vaccine?: Yes *Have you received a flu vaccine this season?: Yes Other Medical History: Reports: Arthritis, Hypothyroidism, Thyroid Disease. Denies: Blood Transfusion Reaction Laterality Cases: Bilateral: Other Other Surgeries: Yes: Appendectomy, Cardiac Catheterization, Cholecystectomy, Hysterectomy-Total, Other (pain pump implants, back x3,). No: Pacemaker Amputation: No Fractures: Yes - *Social History Smoking Status: Never smoker Alcohol Intake: never Substance Use Type: denies use *Occupational Status:: retired Housing: house Household Members: other *Travel in the last 8 weeks: None Family Hx:: Unable to obtain Review of Systems - Constitutional Reports body ache(s), Reports chills, Denies anorexia, Denies lack of energy - Eyes Denies blurry vision - ENT Denies abnormal hearing - *Cardiovascular Denies chest pain at rest - *Respiratory Denies chest congestion, Denies cough - *Gastrointestinal Denies belching, Denies bloating - *Genitourinary Denies painful urination - *Musculoskeletal Reports joint pain, Reports back pain - Integumentary/Breasts Reports bleeding lesions, Reports redness - *Neurologic Reports abnormal speech, Reports behavioral changes, Reports confusion, Reports unsteadiness, Denies abnormal walking - Psychiatric Denies lack of enjoyment Meds Home Medications Medication Instructions Recorded Confirmed Type Atorvastatin Calcium [Lipitor 20mg 20 mg PO HS 03/05/18 05/14/21 History Tab] Clopidogrel Bisulfate [Plavix 75mg 75 mg PO DAILY 03/05/18 05/14/21 History Tab] Furosemide [Furosemide 40MG tAB*] 40 mg PO BIDL 03/05/18 05/14/21 History predniSONE [Deltasone 10mg tablet] 10 mg PO DAILY 03/05/18 05/14/21 History Aki
--- NOTE | 2021-05-15 09:00 | PC.NURSE ---
BP 125/46 (72). Levo gtt decreased to 15mcg/min
[2021-05-15 10:38] LABS: Basophils # 0.1 K/mm3 (0-0.2); Basophils % 0.4 % (0.1-2.0); Eosinophils # 0.1 K/mm3 (0.0-0.4); Eosinophils % 0.6 % (0.1-12.0); Lymphocytes # 1.2 K/mm3 (0.7-4.5); Lymphocytes % 5.8 % (10-50); Mean Corpuscular HGB Conc 33.5 g/dL (31.8-35.4); Mean Corpuscular Hemoglobin 29.8 pg (27.0-31.2); Mean Corpuscular Volume 89.1 fl (81-99); Mean Platelet Volume 7.7 fl (7.4-10.4); Monocytes # 1.1 K/mm3 (0.1-1.0); Monocytes % 5.3 % (1.7-9.3); Neutrophils % 87.8 % (37.0-80.0); Platelet Count 202 K/mm3 (142-424); Red Blood Count 4.03 M/mm3 (4.20-5.40); White Blood Count 20.5 K/mm3 (4.8-10.8)
[2021-05-15 10:41] LABS: MANUAL DIFFERENTIAL MANUAL DIFFERENTIAL (MANUAL DIFF)
[2021-05-15 10:44] LABS: Anion Gap 9.9 mEq/L (5-15); Blood Urea Nitrogen 29 mg/dl (7-17); Carbon Dioxide 25 mmol/L (22.0-30.0); Chloride 104 mmol/L (98-107); Creatinine Clearance Estimated 41 mL/min (50-200); Estimated Glomerular Filt Rate 34 ml/min (>60); GFR (African American) 41 ML/MIN (>60); Glucose 154 mg/dl (74-100); Potassium 3.9 mmoL/L (3.5-5.1); Sodium 135 mmol/L (136-145)
[2021-05-15 10:45] LABS: Calcium 7.5 mg/dl (8.4-10.2)
[2021-05-15 11:03] LABS: Procalcitonin 27.6 ng/mL (0.0-2.0)
--- NOTE | 2021-05-15 11:19 | HMH.PHAVTE ---
[facility] Pharmacy VTE Monitoring - Patient Demographics Admission date: 05/15/21 Report Date: 05/15/21 Time: 11:19 Allergies/Adverse Reactions: Patient Allergies No Known Allergies Allergy (Verified 05/14/21 10:21) Height: 1.68 m Weight: 79.832 kg Patient Problems: Current Active Problems Altered mental status (Acute) Sepsis (Acute) Erysipelas of right lower extremity (Acute) Acute kidney injury (Acute) Obstructive sleep apnea (Acute) - VTE Risk Labs: VTE Related Lab Results Hgb 14.3 g/dL (12.2-16.2) 05/14/21 16:10 Hct 36.0 % (37.0-47.0) L 05/15/21 10:26 Plt Count 202 K/mm3 (142-424) 05/15/21 10:26 PT 11.9 seconds (10.1-12.5) 05/14/21 18:03 INR 1.01 (0.9-1.1) 05/14/21 18:03 APTT 23.9 seconds (22.8-30.6) 05/14/21 18:03 BUN 29 mg/dl (7-17) H 05/15/21 10:26 Creatinine 1.50 mg/dl (0.52-1.04) H 05/15/21 10:26 Estimated Creat Clear 41 mL/min (50-200) 05/15/21 10:26 Was VTE Risk Assessment Performed: No VTE Score: 3 VTE Risk Level: Low Risk - Prophylaxis Types of VTE Prophylaxis: TEDS Knee High (STUART HOSE) Location of Applied Device: Right Leg
[2021-05-15 11:28] LABS: Eosinophils % 1 % (0-3); Lymphocytes % 13 % (10-50); Monocytes % 10 % (2-9); Neutrophils % 74 % (42-76); Platelet Estimate Normal; RBC Morphology Normal; Total Cells Counted 100
--- NOTE | 2021-05-15 12:03 | PC.NURSE ---
BP 135/90 (105). Levo gtt decreased to 13mcg/min. Pt sitting up in bed eating lunch. Remains A&O.
--- NOTE | 2021-05-15 13:00 | PC.NURSE ---
BP 129/51 (77). Levo gtt decreased to 10mcg/min
--- NOTE | 2021-05-15 14:00 | PC.NURSE ---
BP 133/47 (75). Decreased Levo gtt to 8mcg/min
--- NOTE | 2021-05-15 15:00 | PC.NURSE ---
BP 126/51 (76). Levo gtt decreased to 6mcg/min
--- NOTE | 2021-05-15 16:00 | PC.NURSE ---
BP 110/51 (70). Levo gtt decreased to 4mcg/min
--- NOTE | 2021-05-15 17:30 | PC.NURSE ---
BP 119/68 (85). Levo gtt decreased to 2mcg/min
[2021-05-16] VITALS (17 sets, daily range): BP systolic 96–150; BP diastolic 47–82; PULSE 76–93; RESP 12–25; TEMP 36.6–37.3; O2SAT 90–100; BMI 29.7
--- NOTE | 2021-05-16 01:32 | PC.NURSE ---
She is A&Ox3. She denies pain and SOA. Levophed gtt has been off since 2029. NSR on telemetry. F/c patent with yellow, clear urine. RLE continues with erythema, hot, and edema. When administering her night medications she stated she does not take atorvastatin but it was listed on her home meds and she also asked about a blood thinner. Plavix was on her home meds but she stated that Dr. Luu discontinued it and started her on Stuart ASA on Monday.
--- NOTE | 2021-05-16 03:05 | PC.NURSE ---
She has worn the bipap tonight until now. She vomited and then requested to just wear the nasal cannula. Received ondansetron for nausea approx. 15mins prior to vomiting. She is afebrile. Glucose is 156.
[2021-05-16 03:30] LABS: POC Glucose,Bedside 156 (70-110)
[2021-05-16 06:12] LABS: Basophils % 0.2 % (0.1-2.0); Eosinophils # 0.1 K/mm3 (0.0-0.4); Eosinophils % 1.4 % (0.1-12.0); Hematocrit 28.5 % (37.0-47.0); Lymphocytes # 0.4 K/mm3 (0.7-4.5); Lymphocytes % 4.3 % (10-50); Mean Corpuscular Hemoglobin 30.3 pg (27.0-31.2); Mean Corpuscular Volume 89.2 fl (81-99); Mean Platelet Volume 7.6 fl (7.4-10.4); Monocytes # 0.4 K/mm3 (0.1-1.0); Monocytes % 3.9 % (1.7-9.3); Neutrophils # 8.6 K/mm3 (1.8-7.8); Neutrophils % 90.3 % (37.0-80.0); Platelet Count 123 K/mm3 (142-424); White Blood Count 9.6 K/mm3 (4.8-10.8)
[2021-05-16 06:24] LABS: MANUAL DIFFERENTIAL MANUAL DIFFERENTIAL (MANUAL DIFF)
[2021-05-16 06:29] LABS: Chloride 108 mmol/L (98-107); Potassium 3.8 mmoL/L (3.5-5.1); Sodium 137 mmol/L (136-145)
[2021-05-16 06:32] LABS: Anion Gap 9.8 mEq/L (5-15); Blood Urea Nitrogen 21 mg/dl (7-17); Calcium 7.5 mg/dl (8.4-10.2); Carbon Dioxide 23 mmol/L (22.0-30.0); Creatinine Clearance Estimated 64 mL/min (50-200); Estimated Glomerular Filt Rate 54 ml/min (>60); GFR (African American) 65 ML/MIN (>60); Glucose 138 mg/dl (74-100)
--- NOTE | 2021-05-16 06:57 | HMH.ACPN2 ---
Internal Medicine - PN: Subj *Date: 05/16/21 *Time: 06:57 Interval history: Patient developed nausea and vomiting early this morning and was given Zofran for symptoms. She has not had any fevers. Patient has been more alert over the last 24 hours. Exam Vital signs and Labs for Last 24 Hours: Temp Pulse Resp BP Pulse Ox 98.5 F 87 17 101/49 L 96 05/16/21 03:02 05/16/21 06:00 05/15/21 21:00 05/16/21 06:00 05/16/21 06:00 Laboratory Results - last 24 hr 05/15/21 10:26: WBC 20.5 H*, RBC 4.03 L, Hgb 12.0 L D, Hct 36.0 L, MCV 89.1, MCH 29.8, MCHC 33.5, RDW 17.0, Plt Count 202, MPV 7.7, Neut % (Auto) 87.8 H, Lymph % (Auto) 5.8 L, [place] % (Auto) 5.3, Eos % (Auto) 0.6, Baso % (Auto) 0.4, Neut # (Auto) 18.0 H, Lymph # (Auto) 1.2, [place] # (Auto) 1.1 H, Eos # (Auto) 0.1, Baso # (Auto) 0.1, Total Counted 100, Neutrophils % (Manual) 74, Band Neutrophils % 2.0, Lymphocytes % (Manual) 13, Monocytes % (Manual) 10 H, Eosinophils % (Manual) 1, Platelet Estimate Normal, RBC Morphology Normal 05/15/21 10:26: Sodium 135 L, Potassium 3.9 D, Chloride 104, Carbon Dioxide 25 D, Anion Gap 9.9, BUN 29 H, Creatinine 1.50 H, Estimated Creat Clear 41, Estimated GFR 34 L, Est GFR ( Amer) 41 L D, Glucose 154 H D, Calcium 7.5 L D, Procalcitonin 27.6 H 05/16/21 03:00: POC Glucose 156 H 05/16/21 05:36: WBC 9.6 D, RBC 3.20 L, Hct 28.5 L, MCV 89.2, MCH 30.3, MCHC 34.0, RDW 17.0, Plt Count 123 L D, MPV 7.6, Neut % (Auto) 90.3 H, Lymph % (Auto) 4.3 L, [place] % (Auto) 3.9, Eos % (Auto) 1.4, Baso % (Auto) 0.2, Neut # (Auto) 8.6 H, Lymph # (Auto) 0.4 L, [place] # (Auto) 0.4, Eos # (Auto) 0.1, Baso # (Auto) 0.0 05/16/21 05:36: Sodium 137, Potassium 3.8, Chloride 108 H, Carbon Dioxide 23, Anion Gap 9.8, BUN 21 H D, Creatinine 1.00 D, Estimated Creat Clear 64, Estimated GFR 54 L, Est GFR ( Amer) 65 D, Glucose 138 H, Calcium 7.5 L I & O for Last 24 hours: Intake & Output 05/13/21 05/14/21 05/15/21 05/16/21 11:59 11:59 11:59 11:59 Intake Total 5658.734 / 5658.734 4522.862 / 4522.862 Output Total 2400 / 2400 Balance 5658.734 / 5658.734 2122.862 / 2122.862 Weight 176 lb 185 lb 4 oz Microbiology Reports for the Last 24 Hours: Microbiology 05/14/21 18:03 Blood Blood Culture - Preliminary Gram Negative Rods - Constitutional no acute distress - *Routine Respiratory Exam Present: CTA bilaterally - *Routine Cardiovascular Exam Present: RRR - *Routine Abdominal Exam Present: soft, normoactive bowel sounds, tenderness (Left upper quadrant), obese. Absent: distended, rebound, guarding, firm, rigid - *Routine Extremities Exam Present: edema Comments: Right lower extremity with anterior weir erythema, slightly more swollen today than yesterday. Skin is hot to the touch and tender. There are few small open wounds with in the erythema draining serous fluid Assessment and Plan (1) Gram negative sepsis Status: Acute Category: Medical Code(s): A41.50 - Gram-negative sepsis, unspecified (2) Left upper quadrant abdominal pain Status: Acute Category: Medical Code(s): R10.12 - Left upper quadrant pain (3) Erysipelas of right lower extremity Status: Acute Category: Medical Code(s): A46 - Erysipelas (4) Acute kidney injury Status: Resolved Category: Medical Code(s): N17.9 - Acute kidney failure, unspecified (5) Altered mental status Status: Resolved Qualifiers: Altered mental status type: somnolence Qualified Code(s): R40.0 - Somnolence Category: Medical Code(s): R41.82 - Altered mental status, unspecified (6) Obstructive sleep apnea Status: Acute Category: Medical Code(s): G47.33 - Obstructive sleep apnea (adult) (pediatric) - Assessment and plan all Dx Assessment and Plan for all problems:: 1. White blood cell count is decreased significantly. Continue Rocephin but increase to 2 g daily due to gram-negative sepsis 2. Lipase this a.m.
[2021-05-16 07:44] LABS: Lipase 64 U/L (23-300)
[2021-05-16 07:49] LABS: Eosinophils % 3 % (0-3); Lymphocytes % 4 % (10-50); Monocytes % 3 % (2-9); Neutrophils % 90 % (42-76); Platelet Estimate Normal; RBC Morphology Normal; Total Cells Counted 100
[2021-05-16 08:10] LABS: Hemoglobin 9.8 g/dL (12.2-16.2)
[2021-05-16 08:14] LABS: Procalcitonin 13.9 ng/mL (0.0-2.0)
--- NOTE | 2021-05-16 14:58 | PC.NURSE ---
pt has vomited twice with Zofran prn. Contacted Dr. Foy for Phenergan order.
--- NOTE | 2021-05-16 17:59 | PC.NURSE ---
shift note: pt has had several episodes of vomiting today. Phenergan 12.5mg IV x 1 dose relieved symptoms. She refused to get OOB. Zarate catheter remains in place. On 2L NC. Family brought in pt's home CPAP for her to use @ night. Will update nightshift RN. MIVF infusing @ 75mL/hr. Appetite is poor. Has not eaten today. Has been NSR on tele. Normotensive without pressors. Has been alert, oriented, and pleasant.
--- NOTE | 2021-05-16 22:53 | PC.NURSE ---
2100 [address] PATIENT ASLEEP WITH DAUGHTER AT BEDSIDE.TRASH AND LINENS EMPTIED.
[2021-05-17] VITALS (11 sets, daily range): BP systolic 150–180; BP diastolic 79–93; PULSE 80–114; RESP 16–18; TEMP 36.8–37.2; O2SAT 95–99; BMI 29.9
--- NOTE | 2021-05-17 00:07 | PC.NURSE ---
She denies pain. Low grade temperature at the beginning of the shift. RLE continues to be red and is weeping. F/c patent with yellow, clear urine. NSR on telemetry.
[2021-05-17 05:53] LABS: Basophils % 0.2 % (0.1-2.0); Eosinophils # 0.1 K/mm3 (0.0-0.4); Eosinophils % 1.2 % (0.1-12.0); Hematocrit 37.9 % (37.0-47.0); Hemoglobin 12.1 g/dL (12.2-16.2); Lymphocytes # 0.4 K/mm3 (0.7-4.5); Lymphocytes % 3.3 % (10-50); Mean Corpuscular Hemoglobin 29.1 pg (27.0-31.2); Mean Corpuscular Volume 90.8 fl (81-99); Mean Platelet Volume 7.8 fl (7.4-10.4); Monocytes # 0.3 K/mm3 (0.1-1.0); Monocytes % 2.6 % (1.7-9.3); Neutrophils % 92.7 % (37.0-80.0); Platelet Count 174 K/mm3 (142-424); Red Blood Count 4.18 M/mm3 (4.20-5.40); Red Cell Distribution Width 16.8 % (11.5-17.5); White Blood Count 10.8 K/mm3 (4.8-10.8)
[2021-05-17 05:57] LABS: MANUAL DIFFERENTIAL MANUAL DIFFERENTIAL (MANUAL DIFF)
[2021-05-17 05:58] LABS: Chloride 105 mmol/L (98-107); Sodium 136 mmol/L (136-145)
[2021-05-17 05:59] LABS: Potassium 4.6 mmoL/L (3.5-5.1)
[2021-05-17 06:01] LABS: Blood Urea Nitrogen 16 mg/dl (7-17); Creatinine Clearance Estimated 65 mL/min (50-200); Estimated Glomerular Filt Rate 61 ml/min (>60); GFR (African American) 74 ML/MIN (>60)
[2021-05-17 06:02] LABS: Anion Gap 11.6 mEq/L (5-15); Carbon Dioxide 24 mmol/L (22.0-30.0); Glucose 99 mg/dl (74-100)
[2021-05-17 06:16] LABS: Eosinophils % 1 % (0-3); Neutrophils % 96 % (42-76); Platelet Estimate Normal; Spherocytes 1+; Total Cells Counted 100
[2021-05-17 06:19] LABS: Calcium 8.6 mg/dl (8.4-10.2)
--- NOTE | 2021-05-17 06:35 | PC.NURSE ---
0600 [address] PATIENT AWAKE AND JUST HAD HER BATH . TRASH EMPTIED AND ICE WATER REFILLED
[2021-05-17 06:49] LABS: Bilirubin,Unconjugated 0.6 mg/dL (0.0-1.1)
[2021-05-17 06:50] LABS: Alanine Aminotransferase 25 U/L (12-78); Alkaline Phosphatase 124 U/L (38-126); Aspartate Amino Transferase 33 U/L (14-36); Bilirubin,Direct 0.4 mg/dl (0.0-0.4); Bilirubin,Indirect 0.6 mg/dL (0.0-0.9); Total Protein,Serum 5.7 g/dl (6.3-8.2)
--- NOTE | 2021-05-17 07:06 | CT_ITS ---
PROCEDURE: CT ABDOMEN PELVIS W CON CLINICAL INDICATION: gram neg. bactermia, abd. pain, nausea COMPARISON: CT ABDPELW CT abdomen pelvis w con from 05/29/[address] ABDOMEN PELVIS W CON from 03/02/2021 TECHNIQUE: IV Contrast: 75ML Isovue 370 Oral Contrast 10ml Gastroview Axial images obtained with sagittal and coronal reformats. All CT scans at the facility use one or more dose reduction, viz: automated exposure control, ma/kV adjustment per patient size (including targeted exams where dose is matched to indication, i.e. head), or iterative reconstruction technique. FINDINGS: LOWER THORAX: There are small bilateral pleural effusions with bibasilar atelectatic changes/consolidation. There are coronary artery calcifications as well as mitral valve annular calcifications. ABDOMEN & PELVIS: There is a low-density area in the left hepatic lobe segment 4 B and may be due to focal fatty infiltration measuring approximately 1 cm not significantly changed. The spleen and adrenal glands have an unremarkable appearance. No renal or ureteral calculi. There is a small left renal cortical cyst at 1 cm. Right renal cortical cyst is present at 2 cm. Coarse calcifications are present within the pancreatic head suggesting chronic pancreatitis. Small cystic area also noted in this region which is stable No intestinal obstruction or free air. There is some colonic diverticula but no evidence of diverticulitis. There has been a prior cholecystectomy and history of appendectomy. There is a tiny umbilical hernia containing fat. There is a Zarate catheter present with mild nonspecific thickening of the urinary bladder wall. Minimal amount of fluid in the pelvis There is an old left inferior pubic ramus fracture an old superior pubic ramus fracture with incomplete bony union. Multiple kyphoplasties have been performed of the lower thoracic spine and upper lumbar spine from T7-L2. Numerous wedge compression changes are present as before. There has been prior lumbar surgery with inter pedicular screws and connecting rods from L2-S1. There is some sclerosis of the femoral heads on both sides suggesting avascular necrosis. IMPRESSION: 1. Zarate catheter present with mild nonspecific bladder wall thickening. 2. Chronic pancreatic head calcifications suggesting chronic pancreatitis with minimal cystic change at this area which is stable 3. Small bilateral pleural effusions with bibasilar atelectatic changes/consolidation in the lung bases posteriorly. The bilateral effusions and bibasilar atelectasis/consolidation is slightly worse Dictated by: Hussein Plasencia MD 05/17/2021 13:16 Hussein Plasencia MD in [place] 05/17/2021 13:16
--- NOTE | 2021-05-17 07:10 | HMH.ACPN2 ---
Internal Medicine - PN: Subj *Date: 05/17/21 *Time: 07:10 Interval history: Patient has been afebrile for nearly 24 hours. She still feels quite poorly however. Has had multiple episodes of vomiting and reports persistent nausea throughout the night and this morning. Patient has had a bowel movement. No blood has been witnessed in the emesis or stool. Patient has been out of bed only to use the bedside commode. Exam Vital signs and Labs for Last 24 Hours: Temp Pulse Resp BP Pulse Ox 99.2 F 85 17 162/91 H 98 05/16/21 20:00 05/17/21 06:00 05/16/21 20:00 05/17/21 06:00 05/17/21 06:00 Laboratory Results - last 24 hr 05/16/21 05:36: Hgb 9.8 L D, Total Counted 100, Neutrophils % (Manual) 90 H, Lymphocytes % (Manual) 4 L, Monocytes % (Manual) 3, Eosinophils % (Manual) 3, Platelet Estimate Normal, RBC Morphology Normal 05/16/21 05:36: Procalcitonin 13.9 H 05/16/21 05:36: Lipase 64 05/17/21 05:48: WBC 10.8, RBC 4.18 L D, Hgb 12.1 L, Hct 37.9, MCV 90.8, MCH 29.1, MCHC 32.0, RDW 16.8, Plt Count 174 D, MPV 7.8, Neut % (Auto) 92.7 H, Lymph % (Auto) 3.3 L, [place] % (Auto) 2.6, Eos % (Auto) 1.2, Baso % (Auto) 0.2, Neut # (Auto) 10.0 H, Lymph # (Auto) 0.4 L, [place] # (Auto) 0.3, Eos # (Auto) 0.1, Baso # (Auto) 0.0, Total Counted 100, Neutrophils % (Manual) 96 H, Band Neutrophils % 1.0, Atypical Lymphs % 2.0, Eosinophils % (Manual) 1, Platelet Estimate Normal, Spherocytes 1+ 05/17/21 05:48: Sodium 136, Potassium 4.6 D, Chloride 105, Carbon Dioxide 24, Anion Gap 11.6, BUN 16, Creatinine 0.90, Estimated Creat Clear 65, Estimated GFR 61, Est GFR ( Amer) 74, Glucose 99, Calcium 8.6 D 05/17/21 05:49: Total Bilirubin 1.0, Direct Bilirubin 0.4, Conjugated Bilirubin 0.0, Indirect Bilirubin 0.6, Unconjugated Bilirubin 0.6, AST 33, ALT 25, Alkaline Phosphatase 124, Total Protein 5.7 L, Albumin 3.0 L I & O for Last 24 hours: Intake & Output 05/14/21 05/15/21 05/16/21 05/17/21 11:59 11:59 11:59 11:59 Intake Total 5658.734 / 5658.734 4642.862 / 4642.862 2310 / 2310 Output Total 2950 / 2950 2150 / 2150 Balance 5658.734 / 5658.734 1692.862 / 1692.862 160 / 160 Weight 176 lb 185 lb 4 oz 186 lb 5 oz Microbiology Reports for the Last 24 Hours: Microbiology 05/14/21 18:03 Blood Blood Culture - Preliminary NO GROWTH AFTER 48 HOURS 05/14/21 18:03 Blood Blood Culture - Preliminary Gram Negative Rods - Constitutional obese Comments: Patient looks like she just does not feel well - *Routine HEENT Exam ENT: Present: mucous membranes moist - *Routine Respiratory Exam Present: CTA bilaterally - *Routine Cardiovascular Exam Present: RRR - *Routine Abdominal Exam Present: soft, normoactive bowel sounds, tenderness (Left upper and left mid abdomen). Absent: rebound, guarding, firm - *Routine Extremities Exam Present: edema (Bilaterally), tenderness (Right anterior lower leg) Assessment and Plan (1) Gram negative sepsis Status: Acute Category: Medical Code(s): A41.50 - Gram-negative sepsis, unspecified (2) Left upper quadrant abdominal pain Status: Acute Category: Medical Code(s): R10.12 - Left upper quadrant pain (3) Erysipelas of right lower extremity Status: Acute Category: Medical Code(s): A46 - Erysipelas (4) Acute kidney injury Status: Resolved Category: Medical Code(s): N17.9 - Acute kidney failure, unspecified (5) Altered mental status Status: Resolved Qualifiers: Altered mental status type: somnolence Qualified Code(s): R40.0 - Somnolence Category: Medical Code(s): R41.82 - Altered mental status, unspecified (6) Obstructive sleep apnea Status: Acute Category: Medical Code(s): G47.33 - Obstructive sleep apnea (adult) (pediatric) - Assessment and plan all Dx Assessment and Plan for all problems:: 1. Continue IV Rocephin for gram-negative blood cultures. Await final report 2. CT
--- NOTE | 2021-05-17 09:29 | HMH.PTWOUND ---
Rehab Inpt Wound Evaluation Rehab IP Wound Evaluation Start: 05/17/21 07:07 Freq: ONCE Status: Active Protocol: Document 05/17/21 09:18 FRANC (Rec: 05/17/21 09:29 PHOLANCE [id number]) Rehab PT Wound Assessment Subjective Subjective 75 yowf adm to [facility] with AMS and R lower leg cellulitis. Wound Right Lower Leg Wound Type Stasis Ulcer Is This a Chronic Wound No Wound Length (cm) 0.6 Wound Width (cm) 0.5 Wound Bed Appearance [place] Wound Margins Description Indistinct Surrounding Tissue Appearance Purple Edema Type Pitting Edema Degree 2+ Query Text:1+ Trace, Barely Detectable, Rebound 15-30 seconds 2+ Moderate, Slight Indentation, Rebound 10-20 seconds 3+ Deep, Deeper Indentation, Rebound > 30 seconds 4+ Very Deep, Rebound > 60 seconds Edema Appearance Weeping,Puffy,Open Sores Surrounding Tissue Temperature Warm Wound Drainage Description Serous Drainage Amount Moderate Wound Topical Solution/Irrigant Saline Irrigant Primary Dressing Unna Boot Wound Secondary Dressing Type Gauze Roll/Wrap,Adhering Gauze Roll Wound Debridement Method Gauze Dressing Change Patient Tolerance Tolerated Well Plan/Recommendation Comment Will follow short term for cellulitis of the R LE, Nsg can change unna boot as needed . Eval Complexity Eval Charge Codes 26737 - Moderate Complexity PHYSICIAN CERTIFICATION: I certify the specified therapy services for Anat De Guzman are required, authorized, and reviewed every 30 days.
--- NOTE | 2021-05-17 10:00 | PC.NURSE ---
per Dr Foy, ok to take pt out of stepdown
--- NOTE | 2021-05-17 10:02 | HMH.PMCON ---
Assessment and Plan (1) Gram negative sepsis Status: Acute Category: Medical Code(s): A41.50 - Gram-negative sepsis, unspecified (2) Left upper quadrant abdominal pain Status: Acute Category: Medical Code(s): R10.12 - Left upper quadrant pain (3) Erysipelas of right lower extremity Status: Acute Category: Medical Code(s): A46 - Erysipelas (4) Acute kidney injury Status: Resolved Category: Medical Code(s): N17.9 - Acute kidney failure, unspecified (5) Altered mental status Status: Resolved Qualifiers: Altered mental status type: somnolence Qualified Code(s): R40.0 - Somnolence Category: Medical Code(s): R41.82 - Altered mental status, unspecified (6) Obstructive sleep apnea Status: Acute Category: Medical Code(s): G47.33 - Obstructive sleep apnea (adult) (pediatric) (7) Altered mental status Status: Chronic Category: Medical Code(s): R41.82 - Altered mental status, unspecified (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 As result, she was Narcan while in the emergency room. Patient has since had nausea, vomiting, and diarrhea. Patient's symptoms do coincide with withdrawal symptoms following Narcan. Due to an increase in her intrathecal therapy recently, we will decrease her back to her previous dosing of morphine at 1.5 mg/day. We did inquire the pump with no complication. There is no erythema or swelling noted at the pump site. Patient's right lower extremity is erythematous along with weeping of her skin. She is edematous to the area as well. Primary care/hospitalists do not feel that her possible infection is directly linked to her cellulitis right lower extremity. At this time, there is not appear to be any complications with her intrathecal therapy. We will keep her at her dose of 1.5 mg/day. I have concerns of decreasing her any more than this due to risk of withdrawal. The patient will be positive for opiates in her drug screen due to her intrathecal therapy. We will see the patient upon discharge in the clinic. If she continues to have worsening symptoms, we can decrease the patient's intrathecal therapy while inpatient slowly. We do not want to run the risk of withdrawal for the patient. Patient has been instructed to contact the clinic with any concerns before the next appointment. Dr. Tijerina has reviewed this note and agrees with this plan of care. This note was dictated using voice recognition software and make contain errors or omissions. HPI - Data of Consult Patient: new to practice Consult date: 05/17/21 Requesting Physician: Christian Foy MD Primary Care Provider: Christian Foy MD - Consult Narrative Reason for consult: Altered mental status History of present illness: Ms. De Guzman is a 75 year old female who is currently inpatient at [facility]. We were consulted on the patient, as she is one of our patients in the clinic. Patient has an intrathecal pain pump with morphine at 1.7 mg/day. Patient did present to the emergency room on 05/14/2021 for altered mental status. She was thought to be oversedated with her intrathecal therapy and was Narcan in the emergency room. Due to withdrawal from her intrathecal therapy, she was then given medication for pain and withdrawal symptoms. On arrival in the ER, her white count was noted to be at 18, increasing to 20 the following day. She is on antibiotic therapy. She does have cellulitis noted to her right lower extremity. the patient's the patient's initial blood cultures were positive for gram-negativ
--- NOTE | 2021-05-17 10:40 | HMH.ITSTN ---
pt given oral contrast at 7:30am, did not finish until 9:00am; will scan patient around 11:00am
--- NOTE | 2021-05-17 13:53 | PC.NURSE ---
This RN took over care of pt at this time.
--- NOTE | 2021-05-17 17:28 | PC.NURSE ---
Since taking over care of this pt, she has rested comfortably. 2L NC applied to pt, she would desat in the low 80's while asleep. W/ 2L NC, pt is satting >93%. No other acute changes or complaints at this time. WIll continue to monitor.
--- NOTE | 2021-05-17 20:55 | PC.NURSE ---
RA SAT =95%
--- NOTE | 2021-05-17 21:48 | PC.NURSE ---
trash pulled and snack offered at this time
[2021-05-18] VITALS (10 sets, daily range): BP systolic 137–164; BP diastolic 72–90; PULSE 74–100; RESP 17–22; TEMP 36.3–36.9; O2SAT 94–100; BMI 28.5
--- NOTE | 2021-05-18 04:42 | PC.NURSE ---
No acute changes. Pt has slept well this shift. Has not c/o any pain. She did c/o nausea and sneezing this shift. Pt's daughter stated that pt started sneezing after she was administered zofran. Pt was given phenergan for nausea after zofran for nausea that wasn't resolved. No other concerns. VSS. Medications administered per jan. Will continue to monitor.
--- NOTE | 2021-05-18 05:34 | PC.NURSE ---
ice water passed and trash pulled at this time
[2021-05-18 05:57] LABS: Basophils % 0.2 % (0.1-2.0); Eosinophils # 0.1 K/mm3 (0.0-0.4); Hematocrit 33.7 % (37.0-47.0); Hemoglobin 11.4 g/dL (12.2-16.2); Lymphocytes # 0.4 K/mm3 (0.7-4.5); Lymphocytes % 7.4 % (10-50); Mean Corpuscular HGB Conc 33.8 g/dL (31.8-35.4); Mean Corpuscular Hemoglobin 29.6 pg (27.0-31.2); Mean Corpuscular Volume 87.4 fl (81-99); Mean Platelet Volume 7.9 fl (7.4-10.4); Monocytes # 0.3 K/mm3 (0.1-1.0); Monocytes % 4.8 % (1.7-9.3); Neutrophils # 4.7 K/mm3 (1.8-7.8); Neutrophils % 85.6 % (37.0-80.0); Platelet Count 166 K/mm3 (142-424); Red Blood Count 3.86 M/mm3 (4.20-5.40); White Blood Count 5.5 K/mm3 (4.8-10.8)
[2021-05-18 06:00] LABS: MANUAL DIFFERENTIAL MANUAL DIFFERENTIAL (MANUAL DIFF)
[2021-05-18 06:09] LABS: Chloride 104 mmol/L (98-107); Sodium 135 mmol/L (136-145)
[2021-05-18 06:11] LABS: Blood Urea Nitrogen 18 mg/dl (7-17)
[2021-05-18 06:12] LABS: Carbon Dioxide 25 mmol/L (22.0-30.0); Creatinine Clearance Estimated 62 mL/min (50-200); Estimated Glomerular Filt Rate 61 ml/min (>60); GFR (African American) 74 ML/MIN (>60); Glucose 86 mg/dl (74-100)
--- NOTE | 2021-05-18 07:59 | HMH.ACPN2 ---
Internal Medicine - PN: Subj *Date: 05/18/21 *Time: 07:59 Interval history: No acute events. Patient feels slightly better today. CT scan was unrevealing for cause of abdominal pain but continues to show signs of chronic pancreatitis despite patient's claims she has never had pancreatitis. She continues to have nausea and retching. Family believes she does not respond well to Zofran. Exam Vital signs and Labs for Last 24 Hours: Temp Pulse Resp BP Pulse Ox 97.4 F L 97 H 18 164/88 H 94 L 05/18/21 07:45 05/18/21 07:45 05/18/21 07:45 05/18/21 07:45 05/18/21 07:45 Laboratory Results - last 24 hr 05/18/21 05:52: WBC 5.5 D, RBC 3.86 L, Hgb 11.4 L, Hct 33.7 L, MCV 87.4, MCH 29.6, MCHC 33.8, RDW 17.0, Plt Count 166, MPV 7.9, Neut % (Auto) 85.6 H, Lymph % (Auto) 7.4 L, [place] % (Auto) 4.8, Eos % (Auto) 2.0, Baso % (Auto) 0.2, Neut # (Auto) 4.7, Lymph # (Auto) 0.4 L, [place] # (Auto) 0.3, Eos # (Auto) 0.1, Baso # (Auto) 0.0 05/18/21 05:52: Sodium 135 L, Potassium 4.0, Chloride 104, Carbon Dioxide 25, Anion Gap 10.0, BUN 18 H, Creatinine 0.90, Estimated Creat Clear 62, Estimated GFR 61, Est GFR ( Amer) 74, Glucose 86, Calcium 8.0 L I & O for Last 24 hours: Intake & Output 05/15/21 05/16/21 05/17/21 05/18/21 11:59 11:59 11:59 11:59 Intake Total 5658.734 / 5658.734 4642.862 / 4642.862 2310 / 2310 390 / 390 Output Total 2950 / 2950 2150 / 2850 4500 / 4500 Balance 5658.734 / 5658.734 1692.862 / 1692.862 160 / -540 -4110 / -4110 Weight 176 lb 185 lb 4 oz 186 lb 5 oz 178 lb Microbiology Reports for the Last 24 Hours: Microbiology 05/14/21 18:03 Blood Blood Culture - Final Gram Negative Rods - Constitutional no acute distress - *Routine Respiratory Exam Present: CTA bilaterally - *Routine Cardiovascular Exam Present: RRR - *Routine Abdominal Exam Present: soft, tenderness (Mild epigastric and left upper quadrant, improved from yesterday). Absent: rebound, guarding Assessment and Plan (1) Gram negative sepsis Status: Acute Category: Medical Code(s): A41.50 - Gram-negative sepsis, unspecified (2) Left upper quadrant abdominal pain Status: Acute Category: Medical Code(s): R10.12 - Left upper quadrant pain (3) Erysipelas of right lower extremity Status: Acute Category: Medical Code(s): A46 - Erysipelas (4) Acute kidney injury Status: Resolved Category: Medical Code(s): N17.9 - Acute kidney failure, unspecified (5) Altered mental status Status: Resolved Qualifiers: Altered mental status type: somnolence Qualified Code(s): R40.0 - Somnolence Category: Medical Code(s): R41.82 - Altered mental status, unspecified (6) Obstructive sleep apnea Status: Acute Category: Medical Code(s): G47.33 - Obstructive sleep apnea (adult) (pediatric) (7) Altered mental status Status: Chronic Category: Medical Code(s): R41.82 - Altered mental status, unspecified (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 Continue IV Rocephin while awaiting ID and sensitivity on gram-negative in one of her blood cultures 2. Start Creon for chronic pancreatitis 3. Out of bed to chair today, JEAN Zarate, PT elaine 4. DC Tiffanie 5. Incentive spirometer
[2021-05-18 08:07] LABS: Eosinophils % 2 % (0-3); Lymphocytes % 12 % (10-50); Monocytes % 1 % (2-9); Neutrophils % 85 % (42-76); Platelet Estimate Normal; RBC Morphology Normal; Total Cells Counted 100
--- NOTE | 2021-05-18 11:46 | HMH.PTEV ---
Physical Therapy Evaluation Rehab PT IP Evaluation Start: 05/18/21 07:57 Freq: ONCE Status: Active Protocol: Document 05/18/21 11:41 CLARENCE (Rec: 05/18/21 11:45 CLARENCE [id number]) Subjective/History History History 75-year-old female presented to the emergency department twice. The first visit was for complaint of right lower extremity pain and redness. Patient was diagnosed with a cellulitis of the leg and started on oral antibiotics and discharge. Shortly after discharge the patient began showing signs of mental status changes with impaired memory and apparent hallucinations. Once patient returned home her level of consciousness waxed and waned. Family became concerned and contacted EMS. Patient was brought to the emergency department for repeat evaluation. In the emergency department patient continued to have a fluctuating level of consciousness. While she could answer questions appropriately at times at other times she was somnolent. Patient's exam had not changed since the morning with persistence of the redness of the right lower extremity. Her white blood cell count had gone from normal to 18,000 in that short period of time. Patient began to show signs of increasing difficulty breathing. copied from H&P Subjective Subjective pt reports c/o weakness and pain in RLE Rehab PT IP Eval Objective Appearance Patient Behavior Cooperative Patient Orientation Person,Place,Time Difficulty following instructions none Speech Pattern Appropriate Ambulation Patient Able to Ambulate Yes Ambulation Observation IP General Gait Pattern Observation Shuffling Step Ambulation Distance (feet) 2 Ambulation Assistive Device None
--- NOTE | 2021-05-18 16:12 | PC.NURSE ---
Pt has done well this shift. Pt has been up to the chair x2 this shift, w/ x1 assist. Zarate cath d/c'd this shift and pt has urinated since removal. Pt has been incontinent. 2L NC has been required intermittently this shift. IS has been used almost every hour while awake, IS @ best 500cc's. Pt has had no c/o N/V or pain thus far this shift. No other acute change or complaints at this time. Will continue to monitor.
--- NOTE | 2021-05-18 21:37 | ECG_ITS ---
APPROVED REPORT Exam: Resting ECG HR:89 bpm ECG Measurements Heart Rate 89 AXES PA 180 P 47 QRSd 90 QRS -51 QT 386 T -12 QTc 469 Conclusion Sinus rhythm with premature atrial complexes Left axis deviation Inferior infarct, age undetermined Anterior infarct, age undetermined Abnormal ECG Electronically signed by : Christian Gross, 05/19/2021 17:37:24
[2021-05-19] VITALS: BP 136/74; PULSE 78; PULSE 90; RESP 18; TEMP 36.7; O2SAT 95
--- NOTE | 2021-05-19 02:09 | PC.NURSE ---
She denied nausea and pain. No vomiting this shift. She requested something to help her sleep. [employer] operations intelligence chief was paged and she received a 1 time dose of ambien 5mg. She continues on 2LPM n/c. She has been using the incentive spirometer. Her daughter is wanting to ask her PCP about a GI doctor. She stated she was going to make a list of questions.
[2021-05-19 04:00] VITALS: BP 130/68; PULSE 76; PULSE 80; RESP 19; TEMP 36.6; O2SAT 94
[2021-05-19 05:00] VITALS: BMI 28.5
[2021-05-19 06:10] LABS: Chloride 101 mmol/L (98-107); Sodium 137 mmol/L (136-145)
[2021-05-19 06:11] LABS: Potassium 3.6 mmoL/L (3.5-5.1)
[2021-05-19 06:13] LABS: Blood Urea Nitrogen 20 mg/dl (7-17); Creatinine Clearance Estimated 56 mL/min (50-200); Estimated Glomerular Filt Rate 48 ml/min (>60); GFR (African American) 59 ML/MIN (>60)
[2021-05-19 06:14] LABS: Anion Gap 9.6 mEq/L (5-15); Calcium 8.2 mg/dl (8.4-10.2); Carbon Dioxide 30 mmol/L (22.0-30.0); Glucose 97 mg/dl (74-100)
[2021-05-19 06:26] LABS: Basophils % 0.5 % (0.1-2.0); Eosinophils # 0.2 K/mm3 (0.0-0.4); Eosinophils % 4.9 % (0.1-12.0); Hematocrit 34.8 % (37.0-47.0); Hemoglobin 11.9 g/dL (12.2-16.2); Lymphocytes # 0.9 K/mm3 (0.7-4.5); Lymphocytes % 18.7 % (10-50); Mean Corpuscular HGB Conc 34.1 g/dL (31.8-35.4); Mean Corpuscular Hemoglobin 29.3 pg (27.0-31.2); Mean Corpuscular Volume 85.8 fl (81-99); Mean Platelet Volume 7.8 fl (7.4-10.4); Monocytes # 0.2 K/mm3 (0.1-1.0); Monocytes % 3.8 % (1.7-9.3); Neutrophils # 3.5 K/mm3 (1.8-7.8); Neutrophils % 72.1 % (37.0-80.0); Platelet Count 193 K/mm3 (142-424); Red Blood Count 4.06 M/mm3 (4.20-5.40); Red Cell Distribution Width 16.8 % (11.5-17.5); White Blood Count 4.8 K/mm3 (4.8-10.8)
--- NOTE | 2021-05-19 07:16 | HMH.ACPN2 ---
Internal Medicine - PN: Subj *Date: 05/19/21 *Time: 07:16 Interval history: Patient feels better. She slept well last night. Her appetite is returning. She underwent PT evaluation with recommendations for SNF. Patient required sleep aid overnight. She has been using her CPAP. Exam Vital signs and Labs for Last 24 Hours: Temp Pulse Resp BP Pulse Ox 97.9 F 76 19 130/68 94 L 05/19/21 04:00 05/19/21 04:00 05/19/21 04:00 05/19/21 04:00 05/19/21 04:00 Laboratory Results - last 24 hr 05/18/21 05:52: Total Counted 100, Neutrophils % (Manual) 85 H, Lymphocytes % (Manual) 12, Monocytes % (Manual) 1 L, Eosinophils % (Manual) 2, Platelet Estimate Normal, RBC Morphology Normal 05/19/21 05:45: WBC 4.8, RBC 4.06 L, Hgb 11.9 L, Hct 34.8 L, MCV 85.8, MCH 29.3, MCHC 34.1, RDW 16.8, Plt Count 193, MPV 7.8, Neut % (Auto) 72.1, Lymph % (Auto) 18.7, [place] % (Auto) 3.8, Eos % (Auto) 4.9, Baso % (Auto) 0.5, Neut # (Auto) 3.5, Lymph # (Auto) 0.9, [place] # (Auto) 0.2, Eos # (Auto) 0.2, Baso # (Auto) 0.0 05/19/21 05:45: Sodium 137, Potassium 3.6, Chloride 101, Carbon Dioxide 30, Anion Gap 9.6, BUN 20 H, Creatinine 1.10 H D, Estimated Creat Clear 56, Estimated GFR 48 L, Est GFR ( Amer) 59 D, Glucose 97, Calcium 8.2 L I & O for Last 24 hours: Intake & Output 05/16/21 05/17/21 05/18/21 05/19/21 11:59 11:59 11:59 11:59 Intake Total 4642.862 / 4642.862 2310 / 2310 390 / 390 2941 / 2941 Output Total 2950 / 2950 2150 / 2850 4500 / 4500 2300 / 2300 Balance 1692.862 / 1692.862 160 / -540 -4110 / -4110 641 / 641 Weight 185 lb 4 oz 186 lb 5 oz 178 lb 177 lb 15.984 oz Microbiology Reports for the Last 24 Hours: Microbiology 05/14/21 18:03 Blood Blood Culture - Preliminary Pantoea agglomerans Narrative: Patient looks comfortable. Lungs are clear but diminished at the bases. Heart has a regular rate and rhythm. Abdomen is soft. Right lower extremity remains in an Unna boot. Her anaerobic blood culture grew Pantoea agglomerans Assessment and Plan (1) Gram negative sepsis Status: Acute Category: Medical Code(s): A41.50 - Gram-negative sepsis, unspecified (2) Left upper quadrant abdominal pain Status: Acute Category: Medical Code(s): R10.12 - Left upper quadrant pain (3) Erysipelas of right lower extremity Status: Acute Category: Medical Code(s): A46 - Erysipelas (4) Acute kidney injury Status: Resolved Category: Medical Code(s): N17.9 - Acute kidney failure, unspecified (5) Altered mental status Status: Resolved Qualifiers: Altered mental status type: somnolence Qualified Code(s): R40.0 - Somnolence Category: Medical Code(s): R41.82 - Altered mental status, unspecified (6) Obstructive sleep apnea Status: Acute Category: Medical Code(s): G47.33 - Obstructive sleep apnea (adult) (pediatric) (7) Altered mental status Status: Chronic Category: Medical Code(s): R41.82 - Altered mental status, unspecified (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 Blood culture has grown Pantoea agglomerans. This is sensitive to Rocephin which she will continue. 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 In addition to this she is immunocompromise from long-term prednisone use and was recently restarted on methotrexate for her rheumatoid arthritis. I do not believe infection is associated with her pain pump
[2021-05-19 08:00] VITALS: BP 132/94; PULSE 96; RESP 20; TEMP 36.9; O2SAT 94
--- NOTE | 2021-05-19 09:18 | PC.NURSE ---
patient had some complaints of chest pain this morning. at first stating i have heartburn or something wrong . upon assessment patient just states :feels like something tearing out my heart. . vitals stable. patient given protonix medication and md notified. troponins ordered. once given heartburn medication patient has now rested. tolerated an ensure, and a few bites of eggs and toast. chest pain is now gone, and patietn stated she was sure it was heart burn. will still monitor troponins.
[2021-05-19 09:51] LABS: Troponin I 0.02 ng/ml (0.00-0.034)
[2021-05-19 12:00] VITALS: BP 124/91; PULSE 96; RESP 20; TEMP 36.7; O2SAT 93
[2021-05-19 12:44] LABS: Troponin I 0.02 ng/ml (0.00-0.034)
[2021-05-19 15:37] LABS: Troponin I 0.02 ng/ml (0.00-0.034)
--- NOTE | 2021-05-19 15:43 | PC.NURSE ---
patient has done well this shift. complaints of a sore throat, and md stated okay to give chloraseptic spray. vitals have remained stable. has been up and down to chair and bsc. did have a shower this shift. dressing to leg remains intact. rings out as needed. has tolerated diet okay this shift. incontinent of urine and has been changed as needed. has requested to have purwick, which is in place at this time.
[2021-05-19 16:00] VITALS: BP 144/78; PULSE 93; RESP 20; TEMP 36.6; O2SAT 97
[2021-05-19 20:00] VITALS: BP 154/77; PULSE 90; RESP 19; TEMP 37.1; O2SAT 97
--- NOTE | 2021-05-20 03:28 | PC.NURSE ---
Patient is alert & oriented and has done well through the night. She had requested Ambien during the initial rounding because she stated last night I rested so well after taking it . The oncall MD was paged and wasn't comfortable ordering it again due to not being a regular medication she takes at home. He ordered a PRN dose of Benadryl 25mg PO HS. Patient was educated on what the doctor had stated. Patient was okay with it and she would give it a try. Patient was pretty restless around midnight and had complaints of her legs hurting. Tylenol was given and the patient has since rested. She had complained of not being able to wear her CPAP and requested 2L NC and it was so placed. Patient has a Cate boot to her left leg that PT had applied, there is some redness to the ankle/foot region with a darker purple quarter size spot on the inner ankle area. There is also some purple/darker spots noted between her toes on the same foot and a spot located on her big toe. The ankle/foot area was warm to the touch. Call reach is within reach, bed in low postion.
[2021-05-20 04:35] VITALS: BP 132/53; PULSE 84; RESP 18; TEMP 36.9; O2SAT 97
[2021-05-20 05:00] VITALS: BMI 28.5
[2021-05-20 05:24] VITALS: BMI 25.4
--- NOTE | 2021-05-20 05:35 | PC.NURSE ---
Patient was weighed with 1 blanket and 1 pillow.
[2021-05-20 06:35] LABS: Eosinophils # 0.3 K/mm3 (0.0-0.4); Eosinophils % 6.5 % (0.1-12.0); Hematocrit 38.3 % (37.0-47.0); Hemoglobin 12.8 g/dL (12.2-16.2); Lymphocytes % 23.5 % (10-50); Mean Corpuscular HGB Conc 33.6 g/dL (31.8-35.4); Mean Corpuscular Hemoglobin 29.1 pg (27.0-31.2); Mean Corpuscular Volume 86.7 fl (81-99); Mean Platelet Volume 7.8 fl (7.4-10.4); Monocytes # 0.3 K/mm3 (0.1-1.0); Monocytes % 6.4 % (1.7-9.3); Neutrophils # 2.7 K/mm3 (1.8-7.8); Neutrophils % 62.6 % (37.0-80.0); Platelet Count 189 K/mm3 (142-424); Red Blood Count 4.41 M/mm3 (4.20-5.40); Red Cell Distribution Width 16.7 % (11.5-17.5); White Blood Count 4.3 K/mm3 (4.8-10.8)
[2021-05-20 06:38] LABS: Chloride 98 mmol/L (98-107); Potassium 3.4 mmoL/L (3.5-5.1); Sodium 138 mmol/L (136-145)
[2021-05-20 06:41] LABS: Anion Gap 12.4 mEq/L (5-15); Blood Urea Nitrogen 35 mg/dl (7-17); Carbon Dioxide 31 mmol/L (22.0-30.0); Creatinine Clearance Estimated 42 mL/min (50-200); Estimated Glomerular Filt Rate 40 ml/min (>60); GFR (African American) 48 ML/MIN (>60)
[2021-05-20 06:42] LABS: Calcium 8.2 mg/dl (8.4-10.2); Glucose 82 mg/dl (74-100)
--- NOTE | 2021-05-20 07:20 | HMH.ACPN2 ---
Internal Medicine - PN: Subj *Date: 05/20/21 *Time: 07:20 Interval history: Patient has been stable for the last 24 hours. She did complain of some chest pain yesterday and had normal troponins. Chest pain began shortly after patient began eating regular diet. Developed some sore throat as well which was treated with Chloraseptic spray. Patient does ask this morning for fpc stay as she feels very weak when trying to ambulate. Patient lives by herself and is afraid to return home alone. Exam Vital signs and Labs for Last 24 Hours: Temp Pulse Resp BP Pulse Ox 98.5 F 84 18 132/53 L 97 05/20/21 04:35 05/20/21 04:35 05/20/21 04:35 05/20/21 04:35 05/20/21 04:35 Laboratory Results - last 24 hr 05/19/21 05:45: Procalcitonin 2.20 H 05/19/21 09:10: Troponin I 0.02 05/19/21 12:05: Troponin I 0.02 05/19/21 15:06: Troponin I 0.02 05/20/21 06:04: WBC 4.3 L, RBC 4.41, Hgb 12.8, Hct 38.3, MCV 86.7, MCH 29.1, MCHC 33.6, RDW 16.7, Plt Count 189, MPV 7.8, Neut % (Auto) 62.6, Lymph % (Auto) 23.5, Greer % (Auto) 6.4, Eos % (Auto) 6.5, Baso % (Auto) 1.0, Neut # (Auto) 2.7, Lymph # (Auto) 1.0, Greer # (Auto) 0.3, Eos # (Auto) 0.3, Baso # (Auto) 0.0 05/20/21 06:04: Sodium 138, Potassium 3.4 L, Chloride 98, Carbon Dioxide 31 H, Anion Gap 12.4, BUN 35 H D, Creatinine 1.30 H, Estimated Creat Clear 42, Estimated GFR 40 L, Est GFR ( Amer) 48 L, Glucose 82, Calcium 8.2 L I & O for Last 24 hours: Intake & Output 05/17/21 05/18/21 05/19/21 05/20/21 11:59 11:59 11:59 11:59 Intake Total 2310 / 2310 390 / 390 3541 / 3541 700 / 700 Output Total 2150 / 2850 4500 / 4500 2300 / 2300 500 / 500 Balance 160 / -540 -4110 / -4110 1241 / 1241 200 / 200 Weight 186 lb 5 oz 178 lb 177 lb 15.984 oz 158 lb 2 oz Microbiology Reports for the Last 24 Hours: Microbiology 05/14/21 18:03 Blood Blood Culture - Final NO GROWTH AFTER 5 DAYS Narrative: Patient looks well. Oropharynx is moist and clear with no posterior oropharyngeal erythema. Neck is supple. Lungs are clear. Heart has a regular rate and rhythm. Abdomen is soft and nontender. Right lower extremity shows estimated 50% improvement in erythema and purplish discoloration of the skin with almost complete resolution of edema in the area of the Unna boot. Patient has mild erythema of the proximal ankle with 1+ edema Assessment and Plan (1) Gram negative sepsis Status: Acute Category: Medical Code(s): A41.50 - Gram-negative sepsis, unspecified (2) Left upper quadrant abdominal pain Status: Acute Category: Medical Code(s): R10.12 - Left upper quadrant pain (3) Erysipelas of right lower extremity Status: Acute Category: Medical Code(s): A46 - Erysipelas (4) Acute kidney injury Status: Resolved Category: Medical Code(s): N17.9 - Acute kidney failure, unspecified (5) Altered mental status Status: Resolved Qualifiers: Altered mental status type: somnolence Qualified Code(s): R40.0 - Somnolence Category: Medical Code(s): R41.82 - Altered mental status, unspecified (6) Obstructive sleep apnea Status: Acute Category: Medical Code(s): G47.33 - Obstructive sleep apnea (adult) (pediatric) (7) Altered mental status Status: Chronic Category: Medical Code(s): R41.82 - Altered mental status, unspecified (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 Continue IV Rocephin for Pantoea sepsis 2.
[2021-05-20 08:00] VITALS: BP 134/79; PULSE 97; RESP 18; TEMP 36.8; O2SAT 99
--- NOTE | 2021-05-20 09:04 | PC.NURSE ---
PT (Vini) applied unna boot to right leg from mid foot to proximal tibia. Pt is now sitting in chair.
--- NOTE | 2021-05-20 09:41 | SW/DCPLANNER ---
Addendum entered by Pura Bond 05/21/21 07:12: RECEIVED A CALL THAT PATIENT HAS BEEN ACCEPTED TO [facility].. PATIENT IS MEDICALLY READY TO DISCHARGE THERE TODAY.. PATIENT IS GOING TO NOTIFY HER FAMILY TO LET THEM KNOW...SHE WILL TRANSFER THERE VIA AMBULANCE.. Original Note: SENT REFERRAL TO [facility] THIS MORNING PER PATIENT CHOICE..PATIENT WAS RESIDING AT HOME PRIOR TO COMING INTO THE HOSPITAL... SHE HAS A GREENHOUSE AND HAS DEVELOPED AND INFECTION FROM A BUG THAT IS FOUND IN GARDENING... SHE WAS LIVING ALONE PRIOR TO COMING INTO THE HOSPITAL... HAS A GOOD SUPPORTIVE FAMILY AND THE PLAN IS FOR HER TO REHAB AND RETURN BACK HOME ONCE HER STRENGTH COMES BACK TO WHERE SHE CAN CARE FOR HERSELF... WAITING TO HEAR TO WHETHER SHE IS A CANDIDATE OR NOT...
--- NOTE | 2021-05-20 10:19 | HMH.OTEV ---
OT Inpatient Evaluation Rehab OT IP Evaluation Start: 05/20/21 09:30 Freq: ONCE Status: Complete Protocol: Document 05/20/21 10:11 [facility] (Rec: 05/20/21 10:19 [facility] [id number]) Rehab OT IP Assessment Subjective History Pt oriented x 3 on arrival. Pt agreeable to engage in therapy evaluation. Pt was admtted via ED on 05/14/21 due to AMS. Pt has past medical history of Arrhythmia, Atrial Fibrillation, Coronary Artery Disease, Gastroesophageal Reflux Disease(GERD), Hyperlipidemia, Hypertension, Kidney Stones, Palpitations, and DM type 2. Pt reports she lived alone prior to being hospitalized. Pt claims she was independent with all ADLs and IADLs. Pt did still drive . Pt reports she used a walker during ambulation. Subjective I could do anything I needed to. Objective Patient Orientation Person,Place,Birthday Upper Extremity Gross ROM WFL Transfer Training Sit/Stand Transfer Assist Level Minimal x 1 (25% assist) Chair Transfer Ability Minimal x 1 (25% assist) Chair Transfer Technique Sit to/from Ambulatory Lower Body Dressing Ability Standby Assistance Rehab OT IP prob,goals,plan Problems Date of Evaluation: 05/20/21 OT IP Problems Bed Mobility,Transfers,Gait, Balance,Self care,Safety Rehab Potential Rehab Potential Good Equipment Needs Assistive Devices Rolling / Wheeled Walker Plan OT intervention Plan Bed Mobility,Transfers,Gait, Balance,Self care,Safety, Therapeutic Exercise OT Plan Frequency BID Duration LOS Discharge Goals Bed Mobility Ability Standby Assistance Sit to Stand Chair Transfer Ability Contact Guard/Hand Hold Chair Transfer Ability Contact Guard/Hand Hold Chair Transfer Technique Sit to/from Ambulatory Chair Transfer Assistive Devices Rolling Walker Feeding Ability Independent Lower Body Dressing Ability Standby Assistance Upper Body Dressing Ability Standby Assistance Bathing Ability Assistance x1 Performing Toilet Hygiene Ability Standby Assistance Overall Commode/Toilet Transfer Ability Standby Assi
[2021-05-20 16:00] VITALS: BP 135/86; PULSE 78; RESP 18; TEMP 36.8; O2SAT 93
--- NOTE | 2021-05-20 18:45 | PC.NURSE ---
No acute changes this afternoon after taking over care of pt. VSS. NAD. CB in [facility].
[2021-05-20 19:16] VITALS: O2SAT 93
[2021-05-20 20:00] VITALS: BP 125/77; PULSE 92; RESP 18; TEMP 36.4; O2SAT 93
[2021-05-21 03:54] VITALS: BMI 26.2
[2021-05-21 03:56] VITALS: BP 139/90; PULSE 87; RESP 18; TEMP 36.6; O2SAT 97
--- NOTE | 2021-05-21 05:46 | PC.NURSE ---
Patient rested with eyes closed this shift. VS stable, voiced no complaints, showed no s/s of acute distress syndrome, call light within reach, bed at lowest level for safety; will continue to monitor.
--- NOTE | 2021-05-21 07:09 | HMH.DCSUM ---
General - General Admission date:: 05/14/21 Discharge date: 05/21/21 HPI HPI: 75-year-old female presented to the emergency department twice yesterday. The first visit was for complaint of right lower extremity pain and redness. Patient was diagnosed with a cellulitis of the leg and started on oral antibiotics and discharge. Shortly after discharge the patient began showing signs of mental status changes with impaired memory and apparent hallucinations. Once patient returned home her level of consciousness waxed and waned. Family became concerned and contacted EMS. Patient was brought to the emergency department for repeat evaluation. In the emergency department patient continued to have a fluctuating level of consciousness. While she could answer questions appropriately at times at other times she was somnolent. Patient's exam had not changed since the morning with persistence of the redness of the right lower extremity. Her white blood cell count had gone from normal to 18,000 in that short period of time. Patient began to show signs of increasing difficulty breathing. Patient was given Narcan due to the possibility of opiate intoxication. Patient has a pain pump managed by [facility] pain management. The administration of Narcan sent the patient into acute withdrawal and she was given benzodiazepines to sedate her and placed on BiPAP. Patient was hypotensive in the emergency department and once she arrived to the floor patient was started on Levophed. This morning patient's family is at bedside. Patient awakens when her name is called. She can answer questions appropriately and is oriented to person, place, time. She reports pain in her right lower extremity. She had been having cold chills at home but is unaware of any fevers Hospital Course Hospital Course: Patient was admitted with diagnosis of sepsis and cellulitis of the right leg. She was admitted on cefepime. Blood pressure remained low despite administration of boluses of normal saline and high-volume IV fluids. Patient was ultimately placed on Levophed as a pressor to maintain map above 65. By the morning of May 16 Levophed had been weaned completely. Patient was continued on IV fluids for the next 3 days with gradual decreasing right. Patient's cefepime was changed to ceftriaxone 2 g IV daily on the . It was felt this would cover the patient's erysipelas while blood cultures were pending. On the morning of May 16 an anaerobic blood culture was growing a gram-negative naren. Patient was continued on Rocephin and ultimately this gram-negative naren turned out to be a Pantoea agglomerans sensitive to ceftriaxone. Patient has no intravascular catheters. 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 Patient has a pain pump but this was not felt to be the source. Patient finished 7 days of IV Rocephin after 1 day of cefepime. Repeat blood cultures were drawn on May 19 and after 48 hours show no growth. Patient had 8 days of appropriate IV antibiotic therapy and was transition to oral therapy for another week. Initial source of patient's sepsis was felt to be a red swollen right leg. Patient has had recurring infections in this leg since trauma earlier in the year. Patient had several open wounds on the right lower leg. The leg remained a deep red color and tender to touch. On the and Unna boot was applied. Reexamination of the leg on the showed 50% improvement in the amount of erythema and resolution of the edema. Unna boot was reapplied on the afternoon of May 20. On admission patient had mild acute kidney injury secondary to sepsis. This responded to IV fluids. Patient has rheumatoid arthritis. Patient takes methotrexate in addition to prednisone. Patient's immunocompromise state likely contributed to her infection. This was discussed
[2021-05-21 08:00] VITALS: BP 132/69; PULSE 97; RESP 16; TEMP 36.8; O2SAT 94
[2021-05-21 09:56] LABS: Chloride 100 mmol/L (98-107)
[2021-05-21 09:57] LABS: Potassium 3.7 mmoL/L (3.5-5.1); Sodium 139 mmol/L (136-145)
[2021-05-21 09:59] LABS: Blood Urea Nitrogen 27 mg/dl (7-17); Creatinine Clearance Estimated 57 mL/min (50-200); Estimated Glomerular Filt Rate 54 ml/min (>60); GFR (African American) 65 ML/MIN (>60)
[2021-05-21 10:00] LABS: Anion Gap 14.7 mEq/L (5-15); Calcium 8.5 mg/dl (8.4-10.2); Carbon Dioxide 28 mmol/L (22.0-30.0); Glucose 110 mg/dl (74-100)
[2021-05-22 08:30] LABS: Codeine Negative (Cutoff=100); Hydrocodone Negative (Cutoff=100); Hydromorphone Negative (Cutoff=100); Morphine Positive (.); Morphine Confirm 296 ng/mL (Cutoff=100); Opiates Positive (.)
== END 2021-05-21 10:55 | DRG 872 ==
LOC: ER 18:17 → 2ND 18:49
PROVIDERS: Clinical Nurse Specialist Family Health; Admitting Provider Family Medicine; Emergency Provider Emergency Medicine; PCP Family Medicine; Visit Provider Family Medicine
DX: A41.59 Other Gram-negative sepsis (principal); N17.9 Acute kidney failure, unspecified; F19.239 Other psychoactive substance dependence with withdrawal, unspecified; L03.115 Cellulitis of right lower limb; D84.821 Immunodeficiency due to drugs; M54.16 Radiculopathy, lumbar region; M47.816 Spondylosis without myelopathy or radiculopathy, lumbar region; A46 Erysipelas; G47.33 Obstructive sleep apnea (adult) (pediatric); M47.896 Other spondylosis, lumbar region; I10 Essential (primary) hypertension; E78.5 Hyperlipidemia, unspecified; E11.9 Type 2 diabetes mellitus without complications; M06.9 Rheumatoid arthritis, unspecified; Z79.52 Long term (current) use of systemic steroids; G47.00 Insomnia, unspecified; I25.10 Atherosclerotic heart disease of native coronary artery without angina pectoris; E03.9 Hypothyroidism, unspecified; T50.7X5A Adverse effect of analeptics and opioid receptor antagonists, initial encounter
CPT/HCPCS: 36415; 70450; 71045; 74177; 80048; 80076; 80305; 80361; 81001; 82140; 82803; 82962; 83605; 83690; 84145; 84439; 84443; 84484; 85007; 85025; 85378; 85610; 85730; 87040; 87077; 87186; 93005; 93041; 93971; 94660; 94760; 96365; 96366; 96375; 97110; 97116; 97162; 97166; 97530; 99203; 99282; G0463; G0480; J0692; J2310; J2405; J8610; Q9967; U0003

== ENCOUNTER 2021-07-05 13:37 | Day surgery (SDC) | payer MEDICARE, OTHER, SELFPAY ==
[2021-07-05 13:40] VITALS: BP 152/81; PULSE 76; RESP 19; TEMP 36.6; O2SAT 98; BMI 25.8
--- NOTE | 2021-07-05 14:02 | P.PCN_ITS ---
- Procedure Date: 07/05/21 Time: 14:02 Anesthesiologist:: Kiersten Quezada APRN Complications:: None Pre-procedure Diagnosis:: Degenerative disease lumbar spine with lumbar radiculopathy symptoms Post-procedure Diagnosis:: Same Indications for Procedure:: Patient is a 75-year-old white female who presents today for intrathecal pain pump refill and reprogram. She has been treated for degenerative disc disease lumbar spine with lumbar radiculopathy symptoms. Patient is currently on morphine at 1.5 mg/day. She was previously hospitalized in April 2021 for altered mental status for what was thought to be related to her intrathecal pump. After further investigation, she was noted to have infection in her lower extremity. Patient was turned down at that time with her intrathecal therapy. She was also Narcan in the emergency room and did undergo withdrawal symptoms of nausea vomiting and diarrhea. Today she rates her pain a. Patient's [employer] #[id number] has been reviewed and is appropriate. Patient does rate her pain a 7 out of 10 today. She would like an increase. She is currently on morphine at 1.5 mg/day. We will increase her dose if she gets relief. Physical exam General: Alert and oriented x3, no acute distress, pleasant and cooperative, [on room air] Lungs: Respirations even and unlabored, symmetrical chest expansion Eyes: PERRL Musculoskeletal: Flexion and extension of lumbar [spine] somewhat guarded secondary to pain, strength in upper and lower extremities [5/5], [antalgic gait noted] Neurological: Speech clear, [operations supervisor equal], no gross sensory deficit Procedure Details:: Informed consent was obtained and the risk and benefits of the procedure were explained to the patient. The patient was taken to the procedure room where noninvasive monitoring was placed including noninvasive blood pressure cuff and pulse oximeter. Patient's pump was interrogated. The area over the pump was cleansed with chlorhexidine as a cleansing solution. In sterile fashion the pump was accessed with a 22-gauge needle. Approximately 9.5 mls of the pump solution was removed and discarded appropriately. The pump was then refilled with 20 mL's of morphine 10 mg per male. The needle was withdrawn and a bandage was placed over the puncture site. The infusion rate was reprogrammed at morphine at 1. 65 mg/day. The patient tolerated well with no complication. Plan and Disposition:: Patient has been instructed to contact the clinic with any concerns before the next appointment. Dr. Tijerina has reviewed this note and agrees with this plan of care. This note was dictated using voice recognition software and make contain errors or omissions.
[2021-07-05 14:03] VITALS: BP 127/79; PULSE 81; RESP 18; O2SAT 95
[2021-07-05 14:04] VITALS: BP 127/79; PULSE 77; RESP 18; O2SAT 96
[2021-07-05 14:20] VITALS: BP 145/76; PULSE 74; RESP 20; O2SAT 98
== END 2021-07-05 14:21 | disposition home or self-care (01) ==
LOC: SC.PAINP 13:38
PROVIDERS: PCP Family Medicine; Visit Provider Clinical Nurse Specialist Family Health
DX: M51.16 Intervertebral disc disorders with radiculopathy, lumbar region (principal); Z45.1 Encounter for adjustment and management of infusion pump
CPT/HCPCS: 62370

== ENCOUNTER 2021-09-06 12:52 | Day surgery (SDC) | payer MEDICARE, OTHER, SELFPAY ==
[2021-09-06 12:56] VITALS: BP 127/82; PULSE 92; TEMP 36.8; O2SAT 93
[2021-09-06 13:17] VITALS: BP 98/66; PULSE 105; RESP 18; O2SAT 93
--- NOTE | 2021-09-06 13:20 | HMH.PMPROC ---
- Procedure Date: 09/06/21 Time: 13:20 Anesthesiologist:: Kiresten Quezada APRN Complications:: None Pre-procedure Diagnosis:: Degenerative disc disease lumbar spine with lumbar radiculopathy symptoms, chronic back pain Post-procedure Diagnosis:: Same Indications for Procedure:: Patient is a 75-year-old white female who presents today for intrathecal pain pump refill and reprogram. She has been treated for degenerative disc disease lumbar spine with lumbar radiculopathy symptoms. [facility] #[id number] has been reviewed and is appropriate. Morphine equivalent is 0. Drug screens are appropriate. The patient is currently on morphine at 1.65 mg/day. She does rate her pain a 6 out of 10 and would like an increase. She is having pain in the low back with radiation into bilateral lower extremities. Physical exam General: Alert and oriented x3, no acute distress, pleasant and cooperative Lungs: Respirations even and unlabored, symmetrical chest expansion Eyes: PERRL Musculoskeletal: Flexion and extension of lumbar [spine] somewhat guarded secondary to pain, [antalgic gait noted] Neurological: Speech clear, no gross sensory deficit Procedure Details:: Informed consent was obtained and the risk and benefits of the procedure were explained to the patient. The patient was taken to the procedure room where noninvasive monitoring was placed including noninvasive blood pressure cuff and pulse oximeter. Patient's pump was interrogated. The area over the pump was cleansed with chlorhexidine as a cleansing solution. In sterile fashion the pump was accessed with a 22-gauge needle. Approximately 9 mls of the pump solution was removed and discarded appropriately. The pump was then refilled with 20 mL's of morphine 10 mg/mL. The needle was withdrawn and a bandage was placed over the puncture site. The infusion rate was reprogrammed at morphine at 1.8 mg/day. The patient tolerated well with no complication. Plan and Disposition:: We will see the patient back in the clinic at the next intrathecal refill. Patient has been instructed to contact the clinic with any concerns before the next appointment. Dr. Tijerina has reviewed this note and agrees with this plan of care. This note was dictated using voice recognition software and make contain errors or omissions.
[2021-09-06 13:22] VITALS: BP 154/90; PULSE 90; RESP 18; O2SAT 93
[2021-09-06 13:38] VITALS: BP 155/79; PULSE 94; RESP 18; TEMP 36.8; O2SAT 93
== END 2021-09-06 13:30 | disposition home or self-care (01) ==
LOC: SC.PAINP 12:54
PROVIDERS: PCP Family Medicine; Visit Provider Clinical Nurse Specialist Family Health
DX: M51.16 Intervertebral disc disorders with radiculopathy, lumbar region (principal); G89.29 Other chronic pain; Z45.1 Encounter for adjustment and management of infusion pump
CPT/HCPCS: 62370

== ENCOUNTER → 2021-09-21 13:59 | Outpatient (CLI) | payer MEDICARE, OTHER, SELFPAY ==
--- NOTE | 2021-09-21 14:03 | XR_ITS ---
PROCEDURE INFORMATION: Exam: XR Right Hip Exam date and time: 09/21/2021 2:03 PM Age: 75 years old Clinical indication: Hip pain; Left hip; Additional info: Lateral pain of RT hip TECHNIQUE: Imaging protocol: XR Right hip. Views: 2 or 3 views hip with pelvis when performed. COMPARISON: CT ABDOMEN PELVIS W CON 05/17/2021 12:14 PM FINDINGS: Bones/joints: Screws across the sacroiliac joints. Parallel spinous rods in the lumbar spine. Degenerative changes in both hips. Healed fractures in the left pubic symphysis and left pubic rami . There is no evidence of acute fracture.There is no evidence of malalignment or dislocation. Soft tissues: Unremarkable. IMPRESSION: 1. Screws across the sacroiliac joints. Parallel spinous rods in the lumbar spine. 2. Degenerative changes in both hips. 3. Healed fractures in the left pubic symphysis and left pubic rami . 4. There is no evidence of acute fracture.There is no evidence of malalignment or dislocation.
== END ==
PROVIDERS: PCP Nurse Practitioner Family; Visit Provider Nurse Practitioner Family
DX: M25.551 Pain in right hip (principal)
CPT/HCPCS: 73502

== ENCOUNTER 2021-11-15 14:21 | Day surgery (SDC) | payer MEDICARE, OTHER, SELFPAY ==
[2021-11-15 14:28] VITALS: BP 142/84; PULSE 74; RESP 18; TEMP 36.4; BMI 27.3
[2021-11-15 14:41] VITALS: BP 130/86; PULSE 83; RESP 18; O2SAT 97
[2021-11-15 14:42] VITALS: PULSE 82; RESP 18; O2SAT 96
--- NOTE | 2021-11-15 14:46 | P.PCN_ITS ---
- Procedure Date: 11/15/21 Time: 14:46 Anesthesiologist:: Kiersten Quezada APRN Complications:: None Pre-procedure Diagnosis:: Degenerative disc disease of the lumbar spine with lumbar radiculopathy symptoms Post-procedure Diagnosis:: Same Indications for Procedure:: Patient is a pleasant 76-year-old female who presents today for intrathecal pain pump [refill] [and reprogram]. The patient is being treated for degenerative disc disease of the lumbar spine with lumbar radiculopathy symptoms. Patient is currently being managed with morphine 10 mg/mL at a rate of 1.85 mg/day. Pat ient denies any side effects from this medication. Patient does not want any adjustments today. Patient rates pain a 4 out of 10. Drug screen is appropriate. [employer] [id number] has been reviewed and is appropriate. Physical exam General: Alert and oriented x3, no acute distress, pleasant and cooperative, [on room air] Lungs: Respirations even and unlabored, symmetrical chest expansion Eyes: PERRL Musculoskeletal: Flexion and extension of lumbar [spine] somewhat guarded secondary to pain, [antalgic gait noted] Neurological: Speech clear, no gross sensory deficit Procedure Details:: Informed consent was obtained and the risk and benefits of the procedure were explained to the patient. The patient was taken to the procedure room where noninvasive monitoring was placed including noninvasive blood pressure cuff and pulse oximeter. Patient's pump was interrogated. The area over the pump was cleansed with chlorhexidine as a cleansing solution. In sterile fashion the pump was accessed with a 22-gauge needle. Approximately 7 mls of the pump solution was removed and discarded appropriately. The pump was then refilled with 20 mL's of morphine 10 mg/mL. The needle was withdrawn and a bandage was placed over the puncture site. The infusion rate was reprogrammed at morphine 1.85 mg/day. The patient tolerated well with no complication. Plan and Disposition:: We will see the patient back in the clinic at the next intrathecal refill. Patient has been instructed to contact the clinic with any concerns before the next appointment. Dr. Tijerina has reviewed this note and agrees with this plan of care. This note was dictated using voice recognition software and make contain errors or omissions.
[2021-11-15 14:55] VITALS: BP 154/93; PULSE 82; RESP 20; O2SAT 95
[2021-11-15 17:19] LABS: Amphetamine/Metha Screen,Urine Negative ng/ml (<1000); Barbiturates Screen,Urine Negative ng/ml (<200)
[2021-11-15 17:21] LABS: Benzodiazepines Screen,Urine Negative ng/ml (<200)
[2021-11-15 17:22] LABS: Cannabinoid Screen,Urine Negative ng/ml (<50); Cocaine Screen,Urine Negative ng/ml (<300)
[2021-11-15 17:23] LABS: Methadone Screen,Urine Negative ng/ml (<300)
[2021-11-15 17:24] LABS: Opiate Screen,Urine Negative ng/ml (<300); Phencyclidine Screen,Urine Negative ng/ml (<25)
[2021-11-30 10:10] LABS: Codeine Negative (Cutoff=100); Hydrocodone Negative (Cutoff=100); Hydromorphone Negative (Cutoff=100); Morphine Positive (.); Opiates Positive (.)
== END 2021-11-15 14:55 | disposition home or self-care (01) ==
PROVIDERS: PCP Nurse Practitioner Family; Visit Provider Clinical Nurse Specialist Family Health
DX: M51.16 Intervertebral disc disorders with radiculopathy, lumbar region (principal); Z45.1 Encounter for adjustment and management of infusion pump; E03.9 Hypothyroidism, unspecified; E78.5 Hyperlipidemia, unspecified; I48.91 Unspecified atrial fibrillation; I10 Essential (primary) hypertension; K21.9 Gastro-esophageal reflux disease without esophagitis; I25.10 Atherosclerotic heart disease of native coronary artery without angina pectoris; Z90.49 Acquired absence of other specified parts of digestive tract; Z79.82 Long term (current) use of aspirin; Z79.899 Other long term (current) drug therapy
CPT/HCPCS: 62370; 80305; 80361; 80365; G0480

== ENCOUNTER 2022-01-17 14:00 | Day surgery (SDC) | payer MEDICARE, MEDICAID, SELFPAY ==
[2022-01-17 14:31] VITALS: BP 175/86; PULSE 94; RESP 20; TEMP 36.7; O2SAT 97; BMI 26.6
[2022-01-17 14:38] VITALS: BP 185/99; PULSE 79; RESP 18; O2SAT 91
[2022-01-17 14:39] VITALS: BP 182/98; PULSE 78; RESP 20; O2SAT 92
[2022-01-17 14:52] VITALS: BP 128/74; PULSE 89; RESP 20; O2SAT 92
--- NOTE | 2022-01-17 15:02 | P.PCN_ITS ---
- Procedure Date: 01/17/22 Time: 15:02 Anesthesiologist:: Tierney Tillman MD Complications:: None Pre-procedure Diagnosis:: Degenerative disease of lumbar spine lumbar radiculopathy Post-procedure Diagnosis:: Same Indications for Procedure:: Is a very pleasant 76-year-old white female who presents today for intrathecal pump refill and reprogram. She has a pump with a flow [place] system. She is currently on intrathecal morphine 10 mg/mL at 1.85 mg/day and constant flow and PTC. She states that her current pump settings are adequately managing her chronic pain symptoms. Today we will perform intrathecal pump refill and reprogram fluoroscopy without any changes to her pump dose settings. Procedure Details:: Informed consent was obtained and the risks and benefits of the procedure was explained to the patient. The patient was taken to the procedure room. The pump was interrogated. The area over the pump was prepped using ChloraPrep. The pump was accessed with a 22-gauge needle. Approximately 8 mL's of the intrathecal solution was withdrawn and discarded. The pump was then refilled with 20 mL's of intrathecal [morphine 10mg/mL]. The pump was interrogated and the infusion was continued at 1.85 mg/day. The patient tolerated the procedure well with no complications. Next refill date is on March 25, 2022. Plan and Disposition:: We will follow-up with this patient on or before the next pump refill appointment make any pump adjustments at that time if indicated. I discussed with the patient the patient contact her clinic sooner should any issues arise. [facility] #[id number] was reviewed and appropriate.
[2022-01-17 20:20] LABS: Amphetamine/Metha Screen,Urine Negative ng/ml (<1000)
[2022-01-17 20:21] LABS: Barbiturates Screen,Urine Negative ng/ml (<200)
[2022-01-17 20:22] LABS: Benzodiazepines Screen,Urine Negative ng/ml (<200); Cannabinoid Screen,Urine Negative ng/ml (<50)
[2022-01-17 20:23] LABS: Cocaine Screen,Urine Negative ng/ml (<300)
[2022-01-17 20:24] LABS: Methadone Screen,Urine Negative ng/ml (<300); Opiate Screen,Urine Positive ng/ml (<300)
[2022-01-17 20:25] LABS: Phencyclidine Screen,Urine Negative ng/ml (<25)
[2022-02-03 21:08] LABS: Codeine Negative (Cutoff=100); Hydrocodone Negative (Cutoff=100); Hydromorphone Negative (Cutoff=100); Morphine Positive (.); Opiates Positive (.)
== END 2022-01-17 14:53 | disposition home or self-care (01) ==
LOC: SC.PAINP 14:02
PROVIDERS: PCP Nurse Practitioner Family; Visit Provider Anesthesiology Pain Medicine
DX: M51.16 Intervertebral disc disorders with radiculopathy, lumbar region (principal); Z45.1 Encounter for adjustment and management of infusion pump
CPT/HCPCS: 80305; 80361; 80365; 95991; G0480

== ENCOUNTER → 2022-03-04 08:02 | Outpatient (CLI) | payer MEDICARE, MEDICAID, SELFPAY ==
--- NOTE | 2022-03-04 08:06 | US_ITS ---
FINAL REPORT CLINICAL HISTORY: ELEVATED ALKALINE PHOSPATASE LEVEL FINDINGS: Sonographic images of the abdomen were obtained. The liver has increased echogenicity consistent with fatty infiltration. The gallbladder is surgically absent. There is no evidence of biliary ductal dilatation. The common hepatic duct measures 3 mm, which is within normal limits. Limited images of the pancreas are unremarkable. The spleen size is normal. The right kidney measures 9.8 cm in length. The left kidney measures 8.9 cm in length. There are small presumed renal cysts bilaterally measuring 1.3 cm on the right and 1.4 cm on the left. There is no evidence of hydronephrosis. The aorta has an unremarkable appearance. Limited images of the inferior vena cava are unremarkable. IMPRESSION: Fatty liver. Cholecystectomy. Presumed bilateral renal cysts. Reviewed, Interpreted and Dictated by Thaddeus Hansen III, MD Transcribed by Karuna Stanford Authenticated by Thaddeus Hansen III, MD on 03/04/2022 11:28:19 AM [facility]
== END ==
PROVIDERS: PCP Nurse Practitioner Family; Visit Provider Nurse Practitioner Family
DX: R74.8 Abnormal levels of other serum enzymes (principal)
CPT/HCPCS: 76700

== ENCOUNTER → 2022-04-06 12:42 | Outpatient (CLI) | payer MEDICARE, MEDICAID, SELFPAY ==
--- NOTE | 2022-04-06 12:46 | US_ITS ---
FINAL REPORT CLINICAL HISTORY: .non healing rt calcaneus wound, ASCD, PEDAL EDEMA FINDINGS: ANKLE-BRACHIAL PRESSURE INDICES Pressure indices are as follows: RIGHT LOWER EXTREMITY: Ankle-brachial pressure index: 1.0 Comments: Normal LEFT LOWER EXTREMITY: Ankle-brachial pressure index: 1.3 Comments: Normal CONCLUSION: No evidence of significant obstructive peripheral vascular disease of the lower extremities Reviewed, Interpreted and Dictated by Thaddeus Hansen III, MD Transcribed by Karuna Stanford Authenticated by Thaddeus Hansen III, MD on 04/06/2022 02:44:24 PM [facility]
== END ==
PROVIDERS: PCP Nurse Practitioner Family; Visit Provider Podiatrist
DX: L97.411 Non-pressure chronic ulcer of right heel and midfoot limited to breakdown of skin (principal)
CPT/HCPCS: 93923

== ENCOUNTER 2022-09-10 11:15 | Observation (INO) | payer MEDICARE, MEDICAID, SELFPAY ==
[2022-09-10] VITALS (16 sets, daily range): BP systolic 117–154; BP diastolic 76–95; PULSE 90–98; RESP 12–19; TEMP 36.5–37.1; O2SAT 93–96; BMI 23.0; BMI 22.8
--- NOTE | 2022-09-10 11:16 | XR_ITS ---
PROCEDURE INFORMATION: Exam: XR Chest Exam date and time: 09/10/2022 11:43 AM Age: 76 years old Clinical indication: Pain; Chest pressure; Additional info: Chest pain TECHNIQUE: Imaging protocol: Radiologic exam of the chest. Views: 1 view. COMPARISON: CR XR CHEST PORTABLE 05/14/2021 6:06 PM FINDINGS: Lungs: Stable linear parenchymal density overlying the left mid lung field. Pleural spaces: Questionable small left pleural effusion. Heart/Mediastinum: Cardiomegaly. Bones/joints: Osteopenia, degenerative change, and multilevel vertebral plasties. IMPRESSION: 1. Stable linear parenchymal density overlying the left mid lung field and questionable small left pleural effusion. 2. Additional findings as described above.
--- NOTE | 2022-09-10 11:23 | PC.NURSE ---
CALLED FOR RECORDS FROM [place] FOR RECENT STENT PLACEMENT
--- NOTE | 2022-09-10 11:24 | HMH.EDGENADL ---
Discharge Plan Disposition Patient Disposition: Admitted as Observation Condition: Fair Clinical Impressions Clinical Impression: Chest pain Discharge ED Provider: Shantelle Campbell General Adult HPI General Chief complaint: Chest Pain Stated complaint: CHEST PAIN Time Seen by Provider: 09/10/22 11:15 Mode of Arrival: EMS Source of Information: Patient, EMS and Medical Record History of Present Illness HPI narrative: 76-year-old female presenting to the emergency department by EMS, chief complaint of chest pain. She resides at a local senior living. This morning, around 9 AM, 2 hours prior to arrival, started complaining of chest pain. Pain is located in the front of the chest. Feels like a squeezing, pressure pain. Nothing seems to make it better or worse. No radiation to the jaw, arm, back. No associated nausea or diaphoresis. Patient has a history of coronary artery disease, had stents placed at [facility] in [place] 5 days ago. Says she has been doing well since then. No fevers, chills, recent illness Related Data Home Medications Medication Instructions Recorded Confirmed atorvastatin 20 mg tablet 20 mg PO HS Cholesterol 03/05/18 01/17/22 prednisone 10 mg tablet 10 mg PO DAILY STEROID/ARTHRITIS 03/05/18 09/10/22 gabapentin 800 mg tablet 800 mg PO TID Pain 01/25/19 09/10/22 potassium chloride 10 mEq 10 meq PO BID Supplement 03/28/19 09/10/22 capsule,extended release flecainide 50 mg tablet 50 mg PO BID irregular heart rate 06/29/20 09/10/22 cyanocobalamin (vitamin B-12) 1,000 mcg PO DAILY Supplement 03/02/21 01/17/22 2,500 mcg tablet levothyroxine 50 mcg tablet 75 mcg PO DAILY THYROID 03/03/21 09/10/22 morphine 10 mg/mL intravenous 1.5 mg * .DAILY PAIN PUMP PAIN 03/03/21 09/10/[address] MERCADO pantoprazole 40 mg tablet,delayed 40 mg PO DAILY GERD 03/03/21 09/10/22 release aspirin 81 mg tablet,delayed 81 mg PO DAILY CIRCULATION 05/15/21 01/17/22 release torsemide 20 mg tablet 40 mg PO BID water 07/05/21 09/10/22 Allergies Allergy/AdvReac Type Severity Reaction Status Date / Time acetaminophen [From Percocet] Allergy Verified 09/10/22 15:39 ondansetron [From Zofran] Allergy Verified 09/10/22 15:39 oxycodone [From Percocet] Allergy Verified 09/10/22 15:39 PFSH PFSH Social History Smoking Status: Never smoker second hand exposure: No alcohol intake: never substance use type: denies use current occupational status: retired Travel in the last 8 weeks: None household members: other housing: house current occupation: [employer] current occupational exposures/hazards: No caffeine: Yes ROS Obtained: Yes All systems reviewed & no additional complaints except as documented Constitutional Constitutional: Denies chills, Denies fever(s) and Denies headache(s) ENT Ears, Nose, Mouth, and Throat: Denies dizziness, Denies headache(s), Denies neck pain, Denies sinus pressure, Denies sore throat and Denies throat swelling Cardiovascular Cardiovascular: Reports chest pain, Reports chest pain at rest, Denies dyspnea, Denies palpitations and Denies rapid heart rate Respiratory Respiratory: Denies cough, Denies dyspnea, Denies pain on inspiration and Denies wheezing Gastrointestinal Gastrointestingal: Denies nausea or vomiting Musculoskeletal Musculoskeletal: Denies back pain, Denies neck pain, Denies numbness and Denies tingling Integumentary/Breasts Skin/Breast: Denies lesions and Denies rash Neurologic Neurologic: Denies dizziness, Denies headache(s), Denies numbness and Denies tingling Endocrine Endocrine: Denies palpitations Allergic/Immunologic Allergic/Immunologic: Denies throat swelling and Denies wheezing Physical Exam General General appearance: alert and in no apparent distress Head Head exam: atraumatic and normocephalic Eye Eye exam: Present normal appearance and EOMI ENT ENT exam: Present normal exam, normal oropharynx
[2022-09-10 11:33] LABS: Basophils % 0.2 % (0.1-2.0); Eosinophils # 0.1 K/mm3 (0.0-0.4); Eosinophils % 0.3 % (0.1-12.0); Hematocrit 39.5 % (37.0-47.0); Hemoglobin 12.6 g/dL (12.2-16.2); Lymphocytes # 0.7 K/mm3 (0.7-4.5); Lymphocytes % 5.1 % (10-50); Mean Corpuscular HGB Conc 31.9 g/dL (31.8-35.4); Mean Corpuscular Hemoglobin 25.8 pg (27.0-31.2); Mean Corpuscular Volume 80.8 fl (81-99); Monocytes # 0.7 K/mm3 (0.1-1.0); Monocytes % 4.7 % (1.7-9.3); Neutrophils # 12.4 K/mm3 (1.8-7.8); Neutrophils % 89.6 % (37.0-80.0); Platelet Count 480 K/mm3 (142-424); Red Blood Count 4.88 M/mm3 (4.20-5.40); Red Cell Distribution Width 17.3 % (11.5-17.5); White Blood Count 13.9 K/mm3 (4.8-10.8)
[2022-09-10 11:35] LABS: Chloride 102 mmol/L (98-107); MANUAL DIFFERENTIAL MANUAL DIFFERENTIAL (MANUAL DIFF); Sodium 140 mmol/L (136-145)
[2022-09-10 11:36] LABS: Potassium 3.6 mmoL/L (3.5-5.1)
[2022-09-10 11:38] LABS: Anion Gap 15.6 mEq/L (5-15); Blood Urea Nitrogen 31 mg/dl (7-17); Carbon Dioxide 26 mmol/L (22.0-30.0); Creatinine Clearance Estimated 31 mL/min (50-200); Estimated Glomerular Filt Rate 31 ml/min (>60); GFR (African American) 38 ML/MIN (>60)
[2022-09-10 11:39] LABS: Calcium 8.4 mg/dl (8.4-10.2); Glucose 151 mg/dl (74-100)
[2022-09-10 11:41] LABS: Lymphocytes % 4 % (10-50); Monocytes % 3 % (2-9); Neutrophils % 93 % (42-76); Total Cells Counted 100
--- NOTE | 2022-09-10 11:41 | ECG_ITS ---
APPROVED REPORT Exam: Resting ECG HR:97 bpm ECG Measurements Heart Rate 97 AXES FL 171 P -31 QRSd 142 QRS -69 QT 410 T 86 QTc 465 Conclusion Sinus Rhythm LAD LBBB ABNORMAL ECG UNCONFIRMED REPORT Electronically signed by : Christian Gross MD 09/12/2022 21:27:24
[2022-09-10 11:42] LABS: Platelet Estimate Slight Increase; RBC Morphology Normal
--- NOTE | 2022-09-10 11:43 | PC.NURSE ---
SECOND ECG OBTAINED @1148
--- NOTE | 2022-09-10 11:48 | PC.NURSE ---
RECEIVED RECORDS FROM [place]
[2022-09-10 11:50] LABS: Troponin I 0.03 ng/ml (0.00-0.034)
[2022-09-10 11:51] LABS: Coronavirus 19, PCR Not Detected (NotDetected); Influenza A, PCR Not Detected (NotDetected); Influenza B, PCR Not Detected (NotDetected)
--- NOTE | 2022-09-10 12:08 | PC.NURSE ---
ER AT BEDSIDE
--- NOTE | 2022-09-10 13:17 | PC.NURSE ---
ABIMAEL BROWNLEE AT BEDSIDE.
[2022-09-10 14:21] LABS: Troponin I 0.03 ng/ml (0.00-0.034)
--- NOTE | 2022-09-10 14:38 | PC.NURSE ---
hospitalist at the bedside
--- NOTE | 2022-09-10 15:13 | PC.NURSE ---
called house builder for admission
--- NOTE | 2022-09-10 15:14 | EXP.HP ---
History of Present Illness *Admission Date: 09/10/22 *Reason for visit:: chest pain *History of present illness: Patient is a 76-year-old woman with past medical history of chronic pain (morphine pump in place), intermittent afib, rheumatoid arthritis, JENNY, and coronary artery disease status post 1 stent placed 5 years ago, and 2 stents placed 11 days ago in [place] who came to the ER from [facility] for substernal, pressure-like, 10 out of 10 chest pain that began this morning on waking. Patient reports that she was admitted to [facility] on 08/30 for a scheduled left heart cath, where she had 2 additional stents placed. Patient was then admitted overnight and on the morning of 08/31 her daughter got a call around 730 that morning that her mother was unresponsive and had to be shocked back into normal sinus rhythm. Since then patient has really not been herself. She is gradually become more alert and energetic, but by Thursday 09/06 she was not strong enough to walk, so instead of being discharged home she was sent to [facility] for rehab. She reports she did relatively well they are and yesterday ate more than she had been and walked more than she had been, and then this morning woke up with the aforementioned chest pain. Chest pain began around 730 this morning and improved when she was given nitro about 2 hours later by EMS. Since then her chest pain is gradually improved until the time that I saw her when it has completely resolved. She denies any other symptoms, no shortness of breath, no nausea, no diaphoresis. She does feel anxious. PFSH PFSH Social History Smoking Status: Never smoker second hand exposure: No alcohol intake: never substance use type: denies use current occupational status: retired Travel in the last 8 weeks: None household members: other housing: house current occupation: [employer] current occupational exposures/hazards: No caffeine: Yes Review of Systems Constitutional Constitutional: Denies body ache(s), Denies chills, Denies difficulty sleeping, Denies excessive sweating, Reports fatigue, Denies fever(s), Denies headache(s), Reports poor appetite, Reports lethargy and Denies weakness Eyes Eyes: Denies blurry vision and Denies change in vision ENT Ears, Nose, Mouth, and Throat: Denies dizziness, Denies dysphagia and Denies headache(s) *Cardiovascular Cardiovascular: Reports chest pain, Denies dyspnea, Denies dyspnea on exertion, Denies edema, Denies irregular heart rhythm and Denies leg edema *Respiratory Respiratory: Denies dyspnea and Denies dyspnea on exertion *Gastrointestinal Gastrointestinal: Denies abdominal pain, Denies coffee ground emesis, Denies constipation, Denies dysphagia, Denies heartburn, Denies hematemesis, Denies nausea and Denies vomiting *Genitourinary Genitourinary: Denies dysuria *Musculoskeletal Musculoskeletal: Reports abnormal gait (debility 2/2 generalized weakness ), Denies numbness and Denies tingling Integumentary/Breasts Comments: changes of chronic venous stasis on shins bilaterally, daughter reports her skin tears easily *Neurologic Neurologic: Reports abnormal gait (debility 2/2 generalized weakness ), Denies abnormal movements, Denies abnormal speech, Reports confusion (not quite herself for the last 11 days ), Denies dizziness, Denies headache(s), Denies numbness, Denies tingling and Denies weakness Psychiatric Psychiatric: Reports anxiety, Reports confusion (not quite herself for the last 11 days ) and Reports depression Endocrine Endocrine: Denies excessive sweating and Reports fatigue Meds Home Medications and Allergies Home Medications Medication Instructions Recorded Confirmed Type atorvastatin 20 mg tablet 20 mg PO HS Cholesterol 03/05/18 01/17/22 History prednisone 10 mg tablet 10 mg PO DAILY STEROID/ARTHRITIS 03/05/18 09/10/22 History gabapentin 800 mg tablet 800 mg PO TID Pain
--- NOTE | 2022-09-10 15:44 | PC.NURSE ---
Called report to [facility].
--- NOTE | 2022-09-10 16:04 | PC.NURSE ---
patient arrived to floor from ED by stretcher
[2022-09-10 18:14] LABS: NT Pro Brain Natriuretic Pep. 536 pg/mL (0-450)
[2022-09-10 18:17] LABS: Troponin I 0.03 ng/ml (0.00-0.034)
[2022-09-11] VITALS: BP 155/86; PULSE 100; PULSE 98; RESP 19; TEMP 36.8; O2SAT 96
[2022-09-11 04:00] VITALS: BP 150/86; PULSE 100; PULSE 104; RESP 19; TEMP 37.6; O2SAT 92
[2022-09-11 05:00] VITALS: BMI 23.4
[2022-09-11 05:41] LABS: Basophils # 0.1 K/mm3 (0-0.2); Basophils % 0.4 % (0.1-2.0); Eosinophils # 0.1 K/mm3 (0.0-0.4); Eosinophils % 0.7 % (0.1-12.0); Hematocrit 39.3 % (37.0-47.0); Hemoglobin 12.1 g/dL (12.2-16.2); Lymphocytes # 1.2 K/mm3 (0.7-4.5); Lymphocytes % 6.6 % (10-50); Mean Corpuscular HGB Conc 30.8 g/dL (31.8-35.4); Mean Corpuscular Hemoglobin 25.4 pg (27.0-31.2); Mean Corpuscular Volume 82.3 fl (81-99); Monocytes # 0.8 K/mm3 (0.1-1.0); Monocytes % 4.8 % (1.7-9.3); Neutrophils # 15.1 K/mm3 (1.8-7.8); Neutrophils % 87.4 % (37.0-80.0); Platelet Count 501 K/mm3 (142-424); Red Blood Count 4.78 M/mm3 (4.20-5.40); Red Cell Distribution Width 17.2 % (11.5-17.5); White Blood Count 17.3 K/mm3 (4.8-10.8)
[2022-09-11 05:43] LABS: MANUAL DIFFERENTIAL MANUAL DIFFERENTIAL (MANUAL DIFF)
[2022-09-11 05:53] LABS: Chloride 101 mmol/L (98-107); Potassium 3.2 mmoL/L (3.5-5.1); Sodium 138 mmol/L (136-145)
[2022-09-11 05:56] LABS: Alanine Aminotransferase 23 U/L (12-78); Albumin Level 3.5 g/dl (3.5-5.0); Albumin/Globulin Ratio 1.2 (1.1-1.8); Alkaline Phosphatase 112 U/L (38-126); Anion Gap 15.2 mEq/L (5-15); Aspartate Amino Transferase 33 U/L (14-36); Bilirubin,Total 0.7 mg/dl (0.2-1.3); Blood Urea Nitrogen 33 mg/dl (7-17); Calcium 7.9 mg/dl (8.4-10.2); Carbon Dioxide 25 mmol/L (22.0-30.0); Creatinine Clearance Estimated 31 mL/min (50-200); Estimated Glomerular Filt Rate 31 ml/min (>60); GFR (African American) 38 ML/MIN (>60); Magnesium 1.9 mg/dl (1.6-2.3); Total Protein,Serum 6.5 g/dl (6.3-8.2)
[2022-09-11 05:57] LABS: Glucose 105 mg/dl (74-100)
--- NOTE | 2022-09-11 05:57 | PC.NURSE ---
pt very fatigued at beginning of shift, has become more alert as the shift has progressed, no complaints of SOA, has remained on room air, did complain one time of pain when coughing around center of chest, HR 98-104, SBP 150-155
[2022-09-11 06:07] LABS: Troponin I 0.03 ng/ml (0.00-0.034)
[2022-09-11 06:14] LABS: Anisocytosis 1+; Hypochromasia 2+; Lymphocytes % 8 % (10-50); Microcytosis 1+; Neutrophils % 81 % (42-76); Platelet Estimate Moderate Increase; Total Cells Counted 100
[2022-09-11 08:08] VITALS: BP 138/75; PULSE 105; RESP 16; TEMP 36.4; O2SAT 97
--- NOTE | 2022-09-11 09:50 | P.CONPHA_ITS ---
Pharmacy Intervention Comments: home medication list verified using MAR from [facility]
--- NOTE | 2022-09-11 09:50 | HMH.PHAINT1 ---
Pharmacy Intervention Comments: home medication list verified using MAR from [facility]
[2022-09-11 12:00] VITALS: BP 131/65; PULSE 94; RESP 16; TEMP 36.5; O2SAT 95
--- NOTE | 2022-09-11 12:31 | EXP.DC.SUM ---
General Admission date:: 09/10/22 Discharge date: 09/11/22 HPI HPI HPI: Patient is a 76-year-old woman with past medical history of chronic pain (morphine pump in place), intermittent afib, rheumatoid arthritis, JENNY, and coronary artery disease status post 1 stent placed 5 years ago, and 2 stents placed 11 days ago in [place] who came to the ER from [facility] for substernal, pressure-like, 10 out of 10 chest pain that began this morning on waking. Patient reports that she was admitted to [facility] on 08/30 for a scheduled left heart cath, where she had 2 additional stents placed. Patient was then admitted overnight and on the morning of 08/31 her daughter got a call around 730 that morning that her mother was unresponsive and had to be shocked back into normal sinus rhythm. Since then patient has really not been herself. She is gradually become more alert and energetic, but by Thursday 09/06 she was not strong enough to walk, so instead of being discharged home she was sent to [facility] for rehab. She reports she did relatively well they are and yesterday ate more than she had been and walked more than she had been, and then this morning woke up with the aforementioned chest pain. Chest pain began around 730 this morning and improved when she was given nitro about 2 hours later by EMS. Since then her chest pain is gradually improved until the time that I saw her when it has completely resolved. She denies any other symptoms, no shortness of breath, no nausea, no diaphoresis. She does feel anxious. Hospital Course Hospital Course Hospital Course: Patient was admitted yesterday for chest pain concerning for acute coronary syndrome. Chest pain was pressure-like central and relieved with nitro. Troponins were trended and these were normal, additionally EKG was without sign of acute coronary ischemia. Chest pain does not appear to be cardiac in nature, anxiety is more likely as patient does appear to be anxious. Patient and family do not want her returning to [facility]. They say they do not have any complaints, just that they seem understaffed. They report someone will be there with her all day every day and her brother lives just across the street and will check on her at night. She has a walker at home, which she uses for ambulation. Exam Data for Last 24 hours Vital signs and Labs for Last 24 Hours: Temp Pulse Resp BP Pulse Ox 97.7 F 94 H 16 131/65 95 09/11/22 12:00 09/11/22 12:00 09/11/22 12:00 09/11/22 12:00 09/11/22 12:00 Laboratory Results - last 24 hr 09/10/22 11:40: SARS-CoV-2 (PCR) Not detected, Influenza A Untype (PCR) Not detected, Influenza Type B (PCR) Not detected 09/10/22 13:50: Troponin I 0.03 09/10/22 17:45: Troponin I 0.03 09/10/22 17:45: NT-Pro-B Natriuret Pep 536 H 09/11/22 05:15: Sodium 138, Potassium 3.2 L, Chloride 101, Carbon Dioxide 25, Anion Gap 15.2 H, BUN 33 H, Creatinine 1.60 H, Estimated Creat Clear 31, Estimated GFR 31 L, Est GFR ( Amer) 38 L, Glucose 105 H D, Calcium 7.9 L, Magnesium 1.9, Total Bilirubin 0.7, AST 33, ALT 23, Alkaline Phosphatase 112, Troponin I 0.03, Total Protein 6.5, Albumin 3.5, Globulin 3.0, Albumin/Globulin Ratio 1.2 09/11/22 05:15: WBC 17.3 H, RBC 4.78, Hgb 12.1 L, Hct 39.3, MCV 82.3, MCH 25.4 L, MCHC 30.8 L, RDW 17.2, Plt Count 501 H, MPV 8.0, Neut % (Auto) 87.4 H, Lymph % (Auto) 6.6 L, [place] % (Auto) 4.8, Eos % (Auto) 0.7, Baso % (Auto) 0.4, Neut # (Auto) 15.1 H, Lymph # (Auto) 1.2, [place] # (Auto) 0.8, Eos # (Auto) 0.1, Baso # (Auto) 0.1, Total Counted 100, Neutrophils % (Manual) 81 H, Band Neutrophils % 11.0 H, Lymphocytes % (Manual) 8 L, Platelet Estimate Moderate increase, Hypochromasia 2+, Anisocytosis 1+, Microcytosis 1+ I & O for Last 24 hours: Intake & Output 09/08/22 09/09/22 09/10/22 09/11/22 23:59 23:59 23:59 23:59 Intake Total 120 / 120 784 / 784 Balance 120 / 120 784 / 784 Basilio
--- NOTE | 2022-09-12 14:33 | CARE MANAGER ---
Spoke with patient for post-discharge phone interview, patient states that she is well and has no issues.
== END 2022-09-11 14:34 | disposition home or self-care (01) ==
LOC: ER 12:47 → 2ND 15:26
PROVIDERS: Admitting Provider Emergency Medicine; Emergency Provider Emergency Medicine; PCP Nurse Practitioner Family; Visit Provider Emergency Medicine
DX: R07.9 Chest pain, unspecified (principal); G89.29 Other chronic pain; N18.30 Chronic kidney disease, stage 3 unspecified; M06.9 Rheumatoid arthritis, unspecified; G47.33 Obstructive sleep apnea (adult) (pediatric); I50.31 Acute diastolic (congestive) heart failure; I25.10 Atherosclerotic heart disease of native coronary artery without angina pectoris; I48.91 Unspecified atrial fibrillation; Z95.5 Presence of coronary angioplasty implant and graft; Z79.899 Other long term (current) drug therapy
CPT/HCPCS: G0378; 36415; 71045; 80048; 80053; 83735; 83880; 84484; 85007; 85025; 93005; 99285; C9803; U0003; U0005

== ENCOUNTER 2022-09-13 09:24 | Day surgery (SDC) | payer MEDICARE, MEDICAID, SELFPAY ==
[2022-09-13 09:37] VITALS: BP 110/75; PULSE 72; RESP 18; TEMP 36.6; O2SAT 100; BMI 23.0
--- NOTE | 2022-09-13 10:09 | EXP.PAIN.PRO ---
Procedure Date: 09/13/22 Time: 10:00 Anesthesiologist:: Avery Plaza CRNA Complications:: None Pre-procedure Diagnosis:: Degenerative disc disease lumbar spine multilevels. Lumbar radiculopathy Post-procedure Diagnosis:: Same. Indications for Procedure:: This patient is a pleasant 76-year-old female that comes our clinic today for intrathecal pain pump refill. Patient is being managed with morphine sulfate 10 mg/mL at 2.03 mg/day. Patient doing very well at this current setting. She does not wish for any adjustment of the pump at this time. Procedure Details:: Details of the procedure were explained the patient. The patient was taken the procedure room placed in the sitting position. The area over the pump was cleansed using chlorhexidine as a cleansing solution. The pump was accessed with ease using 22-gauge needle. 3 mL of fluid was removed and discarded. 2.5 mL was expected. The pump was then filled with 20 cc of morphine sulfate 10 mg/mL incrementally. Patient tolerated procedure without difficulty. There are no complications. Plan and Disposition:: Patient was discharged without incident
[2022-09-13 10:20] VITALS: BP 131/76; PULSE 73; RESP 18; O2SAT 95
== END 2022-09-13 10:20 | disposition home or self-care (01) ==
PROVIDERS: PCP Nurse Practitioner Family; Visit Provider Nurse Anesthetist, Certified Registered
DX: M51.16 Intervertebral disc disorders with radiculopathy, lumbar region (principal)
CPT/HCPCS: 95991

== ENCOUNTER 2023-01-17 09:19 | Day surgery (SDC) | payer MEDICARE, MEDICAID, OTHER, SELFPAY ==
[2023-01-17 09:39] VITALS: BP 129/80; PULSE 85; RESP 18; TEMP 36.3; O2SAT 98; BMI 21.9
[2023-01-17 09:47] VITALS: BP 165/98; PULSE 85; RESP 18; O2SAT 98
[2023-01-17 09:48] VITALS: BP 165/98; PULSE 85; RESP 18; O2SAT 98
[2023-01-17 10:09] VITALS: BP 177/85; PULSE 83; RESP 18; O2SAT 96
--- NOTE | 2023-01-17 12:18 | P.PCN_ITS ---
Procedure Date: 01/17/23 Time: 09:00 Anesthesiologist:: Avery Plaza CRNA Complications:: None Pre-procedure Diagnosis:: Degenerative disc disease lumbar spine multilevels. Lumbar radiculopathy. Post-procedure Diagnosis:: Same. Indications for Procedure:: Very pleasant 77-year-old female comes our clinic today for intrathecal pain pump interrogation and refill. We currently managed patient with morphine sulfate 2 mg/mL at 2.2 mg/day. Patient states she is having some increased pain in the low back area. She describes pain as intermittent, dull, aching. She is requesting increase in the rate of her pump today. Procedure Details:: Details of the procedure were explained to the patient. The patient taken the procedure room placed in the sitting position. The pump was interrogated. The area over the pump was cleansed using chlorhexidine as a cleansing solution. 5 cc of solution was withdrawn using a 22-gauge inch and a half needle. The pump was then filled with 20 cc of morphine sulfate 10 mg/mL. The pump rate was incr eased to 2.4 mg/day Plan and Disposition:: Patient tolerated procedure without difficulty. There are no complications.
== END 2023-01-17 10:09 | disposition home or self-care (01) ==
LOC: SC.PAINP 09:21
PROVIDERS: PCP Nurse Practitioner Family; Visit Provider Nurse Anesthetist, Certified Registered
DX: Z45.1 Encounter for adjustment and management of infusion pump (principal); M51.16 Intervertebral disc disorders with radiculopathy, lumbar region
CPT/HCPCS: 62370; J1040

== ENCOUNTER 2023-03-07 08:49 | Day surgery (SDC) | payer MEDICARE, OTHER, MEDICAID, SELFPAY ==
[2023-03-07 09:09] VITALS: BP 143/79; PULSE 70; RESP 18; TEMP 36.1; O2SAT 97; BMI 21.9
[2023-03-07 09:22] VITALS: BP 159/91; PULSE 84; RESP 18; O2SAT 97
--- NOTE | 2023-03-07 09:25 | P.PCN_ITS ---
Procedure Date: 03/07/23 Time: 09:15 Anesthesiologist:: Avery Plaza CRNA Complications:: None Pre-procedure Diagnosis:: Degenerative disc disease lumbar spine multilevels. Lumbar radiculopathy. Bilateral sacroiliitis Post-procedure Diagnosis:: Same. Indications for Procedure:: Patient is a very pleasant 77-year-old female that comes our clinic today for intrathecal pain pump interrogation and refill. Patient is currently being managed with morphine sulfate 2 mg/mL at 2.4 mg/day. Patient is doing very well on her current management. Patient reports she is having some increased low lumbar back pain off the midline bilaterally. Upon examination she has extreme point tenderness over the bilateral sacroiliac joints. Patient has had sacroiliac joint injections in the past with significant improvement. She is requesting bilateral sacroiliac joint injection today at the time of her intrathecal pain pump refill. Procedure Details:: Details of the procedure explained to the patient. The patient taken to procedure room placed in sitting position. The area of the pump was cleansed using chlorhexidine as a cleansing solution. The pump was interrogated. The pump was accessed with ease using 22-gauge inch and a half needle. 6.3 mL of solution was withdrawn from the pump and discarded appropriately. The pump was then filled incrementally with 20 cc of morphine sulfate 2 mg/mL. Patient tolerated procedure without difficulty. No complications. Procedure: Bilateral sacroiliac joint injections under fluoroscopy Informed consent was obtained and the risks and benefits of the procedure were explained to the patient.~ The patient was taken to the procedure room and noninvasive monitors were placed including a noninvasive blood pressure cuff and pulse oximeter.~ The patient was placed prone on the procedure table. Both hips were cleansed using Betadine as a cleansing solution. C-arm fluoroscopy was used to view the right sacroiliac joint.~ The skin and subcutaneous tissues were anesthetized using lidocaine 1.5% and a 25-gauge needle.~ After this, a 22-gauge spinal needle was inserted under fluoroscopic guidance into the inferior aspect of the right sacroiliac joint.~ Omnipaque dye was injected and good spread was seen throughout the joint.~ After this, approximately 5 mL of bupivacaine, 0.25% and Depo-Medrol, 40 mg was incrementally injected into the right sacroiliac joint. We then moved to the left sacroiliac joint.~ The skin and subcutaneous tissues were anesthetized using lidocaine 1.5% and a 25-gauge needle.~ After this, a 22- gauge spinal needle was inserted under fluoroscopic guidance into the inferior aspect of the left sacroiliac joint.~ Omnipaque dye was injected and good spread was seen throughout the joint. After this, approximately 5 mL of bupivacaine, 0.25% and Depo-Medrol, 40 mg was incrementally injected into the left sacroiliac joint.~ The patient tolerated the procedure well with no complications. The patient was observed in the Pain Clinic and then was discharged home neurol ogically intact. Plan and Disposition:: Patient was discharged without incident.
[2023-03-07 09:35] VITALS: BP 150/76; PULSE 71; RESP 18; O2SAT 97
== END 2023-03-07 09:35 | disposition home or self-care (01) ==
PROVIDERS: PCP Nurse Practitioner Family; Visit Provider Nurse Anesthetist, Certified Registered
DX: Z45.1 Encounter for adjustment and management of infusion pump (principal); M51.16 Intervertebral disc disorders with radiculopathy, lumbar region; M46.1 Sacroiliitis, not elsewhere classified
CPT/HCPCS: 27096; 62368; G0260; J1030

== ENCOUNTER → 2023-04-03 11:20 | Outpatient (CLI) | payer MEDICARE, OTHER, SELFPAY ==
--- NOTE | 2023-04-03 11:27 | XR_ITS ---
FINAL REPORT CLINICAL HISTORY: RT SHOULDER PAIN, patient very kyphotic, unable to stand , seated on stool FINDINGS: Two views show no evidence of an acute, displaced fracture or dislocation of the visualized bony architecture. Mild degenerative joint disease is present. Old right rib fractures. IMPRESSION: Degenerative changes. No acute bony abnormality. Reviewed, Interpreted and Dictated by Marlon Thomas MD Transcribed by Mingo Millan Authenticated and [facility]
== END ==
PROVIDERS: PCP Nurse Practitioner Family; Visit Provider Nurse Practitioner Family
DX: M25.511 Pain in right shoulder (principal)
CPT/HCPCS: 73030

== ENCOUNTER 2023-04-25 09:51 | Day surgery (SDC) | payer MEDICARE, OTHER, MEDICAID, SELFPAY ==
[2023-04-25 10:16] VITALS: BP 164/84; PULSE 80; RESP 18; TEMP 36.4; O2SAT 95; BMI 23.5
[2023-04-25 10:27] VITALS: BP 163/94; PULSE 84; RESP 18; O2SAT 97
[2023-04-25 10:28] VITALS: BP 163/94; PULSE 84; RESP 18; O2SAT 97
[2023-04-25 10:41] VITALS: BP 156/88; PULSE 78; RESP 18; O2SAT 95
--- NOTE | 2023-04-25 11:02 | P.PCN_ITS ---
Procedure Date: 04/25/23 Time: 10:40 Anesthesiologist:: A[facility] CRNA Complications:: None Pre-procedure Diagnosis:: Degenerative disc lumbar spine multilevels. Lumbar radiculopathy. Osteoarthritis right shoulder. Post-procedure Diagnosis:: Same. Indications for Procedure:: This patient is a very pleasant 77-year-old female comes our clinic today for intrathecal pain pump interrogation and refill. Patient currently being managed with morphine sulfate 10 mg/mL at 2.4 mg/day. Patient does not complain of any side effects or complications regarding the current settings of her intrathecal pain pump. However, patient is complaining of right shoulder pain. Patient had orthopedic consultation recently and was told she has osteoarthritis right shoulder. No other soft tissue damage. Patient requesting intra-articular right shoulder injection today. Upon examination patient has equal strength bilateral arms. However, range of motion is limited due to pain in the right shoulder. Procedure Details:: Details of procedure explained to the patient. The patient taken to procedure room placed in sitting position. The area over the pump was cleansed using chlorhexidine as a cleansing solution. The pump was interrogated. The pump was accessed with ease using a 22-gauge needle. 7.5 mL of solution was withdrawn and discarded appropriately. The pump was then filled incrementally with 20 cc of morphine sulfate 2 mg/mL. The pump rate will continue at 2.4 mg/day. Right shoulder seems to be the worst at this time. We will do an intra-articular injection today to see if this helps with her pain symptoms. Procedure Details: Right shoulder intra-articular injection Informed consent was obtained risk and benefits of the procedure were explained to the patient. Patient was taken to the procedure room. The right shoulder was prepped using ChloraPrep. A 25-gauge needle was used first anteriorly, laterally, and then posteriorly to inject 10 mL bupivacaine 0.25% and Depo- Medrol 40 mg. Patient tolerated procedure well with no complications. Plan and Disposition:: Patient was discharged without incident.
== END 2023-04-25 10:41 | disposition home or self-care (01) ==
PROVIDERS: PCP Nurse Practitioner Family; Visit Provider Nurse Anesthetist, Certified Registered
DX: M51.16 Intervertebral disc disorders with radiculopathy, lumbar region (principal); M19.011 Primary osteoarthritis, right shoulder
CPT/HCPCS: 95991

== ENCOUNTER 2023-05-28 04:24 | Inpatient (IN) | payer MEDICARE, MEDICAID, OTHER, SELFPAY ==
[2023-05-28] VITALS (14 sets, daily range): BP systolic 80–107; BP diastolic 35–58; PULSE 74–94; RESP 17–21; TEMP 36.4–37.1; O2SAT 94–100; BMI 26.0; BMI 26.1
--- NOTE | 2023-05-28 04:34 | PC.NURSE ---
PT ARRIVED TO FLOOR WITH EMS AT THIS TIME
--- NOTE | 2023-05-28 05:19 | XR_ITS ---
PROCEDURE INFORMATION: Exam: XR Chest Exam date and time: 05/28/2023 5:25 AM Age: 77 years old Clinical indication: Shortness of breath; Additional info: SOB TECHNIQUE: Imaging protocol: Radiologic exam of the chest. Views: 1 view. COMPARISON: CR XR CHEST PORTABLE 09/10/2022 11:43 AM FINDINGS: Lungs: Lung volumes are low. Some atelectasis is noted on the left. Pleural spaces: Unremarkable. No pleural effusion. No pneumothorax. Heart/Mediastinum: Unremarkable. No cardiomegaly. Bones/joints: Unremarkable. IMPRESSION: Hypoinflation with atelectasis but no acute process noted.
--- NOTE | 2023-05-28 05:22 | PC.NURSE ---
pt admitted to 217 as direct admit, notified DESTIN Marino of pt's arrival, VOTING MACHINE REPAIRER to bedside, VOTING MACHINE REPAIRER ordered 2mg morphine for pt's 10/10 pain of LLE, 2mg morphine given, photo consent signed and pictures taken of pt's BLE, call light within reach, family at bedside
--- NOTE | 2023-05-28 05:33 | EXP.HP ---
History of Present Illness *Admission Date: 05/28/23 *Reason for visit:: left lower leg pain *History of present illness: Patient is a 77-year-old female past medical history of Afib, diastolic heart failure, chronic kidney disease, hypertension, hypothyroidism, histoplasmosis, CAD s/p stent placement, chronic urinary tract infection, chronic back pain on morphine pump. Patient transferred from [facility], concerning for severe sepsis with septic shock. Patient was presented to the ER with pain, swelling, tenderness, large hematoma, and puncture wound to the left lower leg. Patient stated she hit a hard surface few days ago and symptoms started developing gradually. Patient was also evaluated and found to be hypotensive with tachycardia, afebrile, a request for higher level of care was placed . Discussed with the hospitalist, agreed for transfer. Patient alert and oriented x4, able to communicate her needs. Blood pressure 88/47, MAP 60. Pulse 93 remaining afebrile. Lactic acid of 6.5. Admitted for further management. [facility] Disclaimer: The information contained in this section may have been updated after the patient was seen, as this information can be updated by other users. Medical History (Updated 05/28/23 @ 09:06 by Tee Lang MD) Appendicitis Hypercholesteremia Hypertension Kidney disease Leaky heart valve Surgical History History of hysterectomy History of intravascular stent placement Previous back surgery Family History Family history of hypertension Social History (Updated 05/28/23 @ 05:40 by Gina Farias RN) Smoking Status: Never smoker second hand exposure: No alcohol intake: never substance use type: denies use current occupational status: retired Travel in the last 8 weeks: None household members: other housing: house current occupation: [employer] current occupational exposures/hazards: No caffeine: Yes Review of Systems Review of Systems Review of systems:: pertinent systems reviewed and negative unless documented below Meds Home Medications and Allergies Home Medications Medication Instructions Recorded Confirmed Type prednisone 10 mg tablet 10 mg PO DAILY STEROID/ARTHRITIS 03/05/18 05/28/23 History potassium chloride 10 mEq 10 meq PO DAILY Supplement 03/28/19 05/28/23 History capsule,extended release flecainide 50 mg tablet 50 mg PO BID HEART RATE 06/29/20 05/28/23 History morphine 10 mg/mL intravenous 1.5 mg * .DAILY PAIN PUMP PAIN 03/03/21 05/28/23 History syringe PUMP MED. VIA DR. MERCADO pantoprazole 40 mg tablet,delayed 40 mg PO DAILY acid reflux 03/03/21 05/28/23 History release aspirin 81 mg tablet,delayed 81 mg PO DAILY HEART HEALTH 05/15/21 05/28/23 History release torsemide 20 mg tablet 20 mg PO DAILY shortness of 07/05/21 05/28/23 History breath/diuretic clopidogrel 75 mg tablet 75 mg PO DAILY PLATELET INHIBITOR 09/11/22 05/28/23 History levothyroxine 75 mcg tablet 75 mcg PO DAILY hypothyroidism 09/11/22 05/28/23 History meloxicam 7.5 mg tablet 7.5 mg PO DAILY Pain 05/28/23 05/28/23 History New Prescriptions to Start Prescriptions: Allergies Allergy/AdvReac Type Severity Reaction Status Date / Time acetaminophen [From Percocet] Allergy Verified 04/25/23 09:59 ondansetron [From Zofran] Allergy Verified 04/25/23 09:59 oxycodone [From Percocet] Allergy Verified 04/25/23 09:59 Exam Data for Last 24 hours Vital signs and Labs for Last 24 Hours: Temp 98.8 F 05/28/23 04:28 I & O for Last 24 hours: Intake & Output 05/25/23 05/26/23 05/27/23 05/28/23 23:59 23:59 23:59 23:59 Weight 75.438 kg Constitutional Constitutional: mild distress, obese, chronically ill appearing and cooperative *Routine HEENT Exam Head: Present normocephalic and atraumatic
[2023-05-28 05:36] LABS: Basophils % 0.2 % (0.1-2.0); Hematocrit 32.5 % (37.0-47.0); Hemoglobin 9.8 g/dL (12.2-16.2); Lymphocytes # 0.5 K/mm3 (0.7-4.5); Lymphocytes % 3.2 % (10-50); Mean Corpuscular HGB Conc 30.1 g/dL (31.8-35.4); Mean Corpuscular Hemoglobin 22.5 pg (27.0-31.2); Mean Corpuscular Volume 74.9 fl (81-99); Mean Platelet Volume 7.2 fl (7.4-10.4); Monocytes # 0.7 K/mm3 (0.1-1.0); Neutrophils # 13.6 K/mm3 (1.8-7.8); Neutrophils % 91.6 % (37.0-80.0); Platelet Count 318 K/mm3 (142-424); Red Blood Count 4.34 M/mm3 (4.20-5.40); Red Cell Distribution Width 16.8 % (11.5-17.5); White Blood Count 14.8 K/mm3 (4.8-10.8)
[2023-05-28 05:41] LABS: Magnesium 1.8 mg/dl (1.6-2.3)
[2023-05-28 05:42] LABS: INR 1.07 (0.9-1.1); MANUAL DIFFERENTIAL MANUAL DIFFERENTIAL (MANUAL DIFF); Prothrombin Time 11.5 seconds (10.1-12.5)
[2023-05-28 05:43] LABS: Lactic Acid 6.5 mmol/L (0.7-2.1)
[2023-05-28 05:52] LABS: Lymphocytes % 9 % (10-50); Monocytes % 1 % (2-9); Neutrophils % 82 % (42-76); Platelet Estimate Normal; RBC Morphology Normal; Total Cells Counted 100
--- NOTE | 2023-05-28 05:52 | PC.NURSE ---
notified DESTIN Marino of pt's lactic acid result of 6.5, no new orders at this time
--- NOTE | 2023-05-28 06:16 | PC.NURSE ---
pt's family leaving but will be back later, pt's daughter Oralia Abdullahi number is [phone] and pt's son Karri Abdullahi number is [phone]
--- NOTE | 2023-05-28 06:19 | PC.NURSE ---
spoke with [facility], creatinine needed for vanc dosing so Topher will leave note for [facility] pharmacy to dose next vanc dose once labs come back, next dose not needed until at least 1300 as pt got dose at [facility] at 0100
[2023-05-28 07:56] LABS: Coronavirus 19, PCR Not Detected (NotDetected); Influenza A, PCR Not Detected (NotDetected); Influenza B, PCR Not Detected (NotDetected)
--- NOTE | 2023-05-28 08:11 | HMH.PHAINT1 ---
Pharmacy Intervention Comments: MEDICATION RECONCILIATION COMPLETED ON PATIENT USING EXTERNAL FILL HISTORY FROM PHARMACY AND DENICE REPORT. -DAMI MARTINEZ, MARIANAD
--- NOTE | 2023-05-28 08:55 | CT_ITS ---
PROCEDURE INFORMATION: Exam: CT Left Lower Extremity Without Contrast; Lower Leg Exam date and time: 05/28/2023 9:31 AM Age: 77 years old Clinical indication: Injury or trauma; Fall; Wound; Lower leg; Left; Without foreign body; Additional info: Concern for nec fascitis of leg TECHNIQUE: Imaging protocol: CT of the left lower extremity without contrast was performed. Exam focused on the lower leg. Radiation optimization: All CT scans at this facility use at least one of these dose optimization techniques: automated exposure control; mA and/or kV adjustment per patient size (includes targeted exams where dose is matched to clinical indication); or iterative reconstruction. REPORTING DATA: Count of CT and Cardiac NM exams in prior 12 months: This patient has received 0 known CTs and 0 known cardiac nuclear medicine studies in the 12 months prior to the current study. COMPARISON: EXTLLWO CT EXT.LOWER-LT-W/O CONTRAST 09/18/2017 10:21 AM FINDINGS: Bones/joints: Partially imaged left knee joint effusion. Remote posttraumatic deformity of the distal tibia and fibula. Osteopenia. No acute fracture or malalignment. Possible 1.5 cm mineralized joint body along the anterior tibiotalar joint. Soft tissues: Subcutaneous fat stranding and edema is seen within the lower left leg. No abscess or drainable fluid collection. No subcutaneous emphysema to suggest necrotizing fasciitis. IMPRESSION: There is evidence of cellulitis involving the left lower leg. No abscess or drainable fluid collection. No specific evidence of necrotizing fasciitis.
--- NOTE | 2023-05-28 09:15 | PC.NURSE ---
PATIENT'S SON UPDATED ON POC FOR PATIENT. LEFT MESSAGE ON DAUGHTER'S PHONE, PER PATIENT REQUEST.
[2023-05-28 09:27] LABS: Reflex Lactic Add Lactic Reflex
[2023-05-28 10:13] LABS: Chloride 109 mmol/L (98-107)
[2023-05-28 10:14] LABS: Potassium 4.5 mmoL/L (3.5-5.1); Sodium 138 mmol/L (136-145)
[2023-05-28 10:16] LABS: Alanine Aminotransferase 39 U/L (12-78); Aspartate Amino Transferase 47 U/L (14-36); Blood Urea Nitrogen 30 mg/dl (7-17); Creatinine Clearance Estimated 33 mL/min (50-200); Estimated Glomerular Filt Rate 29 ml/min (>60); GFR (African American) 35 ML/MIN (>60)
[2023-05-28 10:17] LABS: Albumin Level 2.4 g/dl (3.5-5.0); Albumin/Globulin Ratio 1.1 (1.1-1.8); Alkaline Phosphatase 59 U/L (38-126); Anion Gap 19.5 mEq/L (5-15); Bilirubin,Total 0.4 mg/dl (0.2-1.3); Calcium 7.6 mg/dl (8.4-10.2); Carbon Dioxide 14 mmol/L (22.0-30.0); Globulin 2.1 g/dL (1.3-3.2); Glucose 101 mg/dl (74-100); Total Protein,Serum 4.5 g/dl (6.3-8.2)
[2023-05-28 10:22] LABS: Lactic Acid Follow Up (RFLX 1) 6.5 mmol/L (0.7-2.1)
--- NOTE | 2023-05-28 10:22 | EXP.PHA.CONS ---
Pharmacy Consult Date: 05/28/23 Time: 10:23 Referring provider: DR. BELTRAN Reason for Consult:: VANCOMYCIN DOSING Allergies Allergy/AdvReac Type Severity Reaction Status Date / Time acetaminophen [From Percocet] Allergy Verified 04/25/23 09:59 ondansetron [From Zofran] Allergy Verified 04/25/23 09:59 oxycodone [From Percocet] Allergy Verified 04/25/23 09:59 Home Medications Medication Instructions Recorded Confirmed Type prednisone 10 mg tablet 10 mg PO DAILY STEROID/ARTHRITIS 03/05/18 05/28/23 History potassium chloride 10 mEq 10 meq PO DAILY Supplement 03/28/19 05/28/23 History capsule,extended release flecainide 50 mg tablet 50 mg PO BID HEART RATE 06/29/20 05/28/23 History morphine 10 mg/mL intravenous 1.5 mg * .DAILY PAIN PUMP PAIN 03/03/21 05/28/23 History syringe PUMP MED. VIA DR. MERCADO pantoprazole 40 mg tablet,delayed 40 mg PO DAILY acid reflux 03/03/21 05/28/23 History release aspirin 81 mg tablet,delayed 81 mg PO DAILY HEART HEALTH 05/15/21 05/28/23 History release torsemide 20 mg tablet 20 mg PO DAILY shortness of 07/05/21 05/28/23 History breath/diuretic clopidogrel 75 mg tablet 75 mg PO DAILY PLATELET INHIBITOR 09/11/22 05/28/23 History levothyroxine 75 mcg tablet 75 mcg PO DAILY hypothyroidism 09/11/22 05/28/23 History meloxicam 7.5 mg tablet 7.5 mg PO DAILY Pain 05/28/23 05/28/23 History New Prescriptions to Start Prescriptions: Height: 1.7 m Weight: 75.43 kg Laboratory Results:: Laboratory Results - last 24 hr 05/28/23 05:15: WBC 14.8 H, RBC 4.34, Hgb 9.8 L, Hct 32.5 L, MCV 74.9 L, MCH 22.5 L, MCHC 30.1 L, RDW 16.8, Plt Count 318, MPV 7.2 L, Neut % (Auto) 91.6 H, Lymph % (Auto) 3.2 L, [place] % (Auto) 5.0, Eos % (Auto) 0.0 L, Baso % (Auto) 0.2, Neut # (Auto) 13.6 H, Lymph # (Auto) 0.5 L, [place] # (Auto) 0.7, Eos # (Auto) 0.0, Baso # (Auto) 0.0, Total Counted 100, Neutrophils % (Manual) 82 H, Band Neutrophils % 8.0, Lymphocytes % (Manual) 9 L, Monocytes % (Manual) 1 L, Platelet Estimate Normal, RBC Morphology Normal, PT 11.5, INR 1.07, Lactate 6.5 H, Magnesium 1.8 05/28/23 07:43: SARS-CoV-2 (PCR) Not detected, Influenza A Untype (PCR) Not detected, Influenza Type B (PCR) Not detected 05/28/23 09:59: Sodium 138, Potassium 4.5, Chloride 109 H, Carbon Dioxide 14 L, Anion Gap 19.5 H, BUN 30 H, Creatinine 1.70 H, Estimated Creat Clear 33, Estimated GFR 29 L, Est GFR ( Amer) 35 L, Glucose 101 H, Lactate 6.5 H, Calcium 7.6 L, Total Bilirubin 0.4, AST 47 H, ALT 39, Alkaline Phosphatase 59, Total Protein 4.5 L D, Albumin 2.4 L, Globulin 2.1, Albumin/Globulin Ratio 1.1 Medical History: Medical History (Updated 05/28/23 @ 09:06 by Tee Beltran MD) Appendicitis Hypercholesteremia Hypertension Kidney disease Leaky heart valve Assessment and Plan Assessment and plan all Dx Assessment and Plan for all problems:: Pharmacokinetic dosing service Objective: Patient: Floor: Age: 77 yo Serum creatinine: 1.70 mg/dL Height: 67.0 Inches Weight (kg): 75.4 Assessment: IBW (kg): 66.10 Dosing wt(kg): 75.4 Estimated Creatinine clearance (ml/min): 34.0 CRCL method: Cockcroft and Gault using ibw(default). Drug selected: Vancomycin Loading dose (mg): Vd (liters): 56.6 (factor used: 0.75 L/kg) Martín (hr-1): 0.033 Half life (hrs): 21.00 CLvanco=?? 1.868 L/hr Recommended dose: 1000 mg Interval: 24 hrs Infusion time (hrs): 2.0 Predicted peak (mcg/mL): 31.3 Predicted trough (mcg/mL): 15.14 Total body weight is being used for vancomycin dosing. Recommendations: Give Vancomycin 1000 mg q 24 hrs with an expected Cpeak of 31.3 mcg/ml and an expected Ctrough of 15.14 mcg/ml AUC 0-24 /MITRA Data: MITRA 0.5 mcg/mL:?? AUC/MITRA:? 1070.7 MITRA 1.0 mcg/mL:?? AUC/MITRA:? 53
--- NOTE | 2023-05-28 11:43 | EXP.DC.SUM ---
General Admission date:: 05/28/23 Discharge date: 05/28/23 HPI HPI HPI: Patient is a 77-year-old female past medical history of Afib, diastolic heart failure, chronic kidney disease, hypertension, hypothyroidism, histoplasmosis, CAD s/p stent placement, chronic urinary tract infection, chronic back pain on morphine pump. Patient transferred from [facility], concerning for severe sepsis with septic shock. Patient was presented to the ER with pain, swelling, tenderness, large hematoma, and puncture wound to the left lower leg. Patient stated she hit a hard surface few days ago and symptoms started developing gradually. Patient was also evaluated and found to be hypotensive with tachycardia, afebrile, a request for higher level of care was placed . Discussed with the hospitalist, agreed for transfer. Patient alert and oriented x4, able to communicate her needs. Blood pressure 88/47, MAP 60. Pulse 93 remaining afebrile. Lactic acid of 6.5. Admitted for further management. Hospital Course Hospital Course Hospital Course: Patient is a 77-year-old female past medical history of Afib, diastolic heart failure, chronic kidney disease, hypertension, hypothyroidism, histoplasmosis, CAD s/p stent placement, chronic urinary tract infection, chronic back pain on morphine pump. Patient transferred from [facility], concerning for severe sepsis with septic shock. Concern prior to transfer was expressed to cellulitis. On arrival, patient's wound more consistent with necrotizing fasciitis. labs seen and reviewed. Findings are leukocytosis 14. 8 with lactic acidosis. Chest x-ray was done. EKG reviewed patient remains on aFib with heart rate controlled. Afebrile alert and oriented x4. Vancomycin and Zosyn was given. Problems addressed as follows: -Septic shock secondary to left leg cellulitis -Necrotizing fasciitis left lower leg, suspected Admitted for stepdown, started on continuous cardiac monitoring. Blood pressure continued to drop, was started on Levophed. Initially on 8 mcg, increased to 12 prior to transfer. Received 3 L IV bolus from the time of her presentation to [facility] to time of transfer to . Initial lactate on arrival was a 6.5. Lactate at [facility] 4.7, repeat lactate 6.5. No improvement with fluids. Initiated on broad-spectrum antibiotics including vancomycin and Zosyn at approximately midnight at [facility]. Antibiotics changed after arrival. Transition to cefepime, Flagyl, clindamycin, and continuing bank. Prior to discharge received her dose of clindamycin and we were hanging cefepime at time of transport. Blood cultures pending. Wound cultures pending. Ortho was consulted, discussed case extensively. Strong concern for necrotizing fasciitis based on clinical picture. Recommended transfer. Discussed case with . Given timeframe with which we would be able to debride wound, graciously excepted as a rapid transfer for further management. CT of leg was obtained, showing cellulitis but no duong fluid collection or subcu air. -INDIRA on CKD: Creatinine 1.6 per chart review, 1.5 at outside facility. Repeat labs after arrival in our facility creatinine 1.7. BUN 30. Medications were renally dosed. Zosyn was stopped due to risk of INDIRA with vancomycin. -Afib -Heart failure with preserved ejection fraction -CAD Rate controlled during admission. Heart rate in the 70s and 80s. Held her aspirin and Plavix. Continued her home flecainide. Diuretics were discontinued. -Chronic back pain: Morphine 2 mg every 4 hours as needed for severe pain. Patient reportedly has pain pump. Reviewed records from pain management at [facility]. -GERD: On Protonix -Sleep apnea: Started on supplemental oxygen 2 L, sats have been in the high 90s. No focal airspace disease concern. No duong hypoxia noted on monitoring. Patient seriously ill, discussed need for possible hallman
[2023-05-28 12:03] LABS: Reflex Lactic (2 hrs) Add Lactic Reflex
[2023-05-28 12:54] LABS: Lactic Acid Follow up (RFLX 2) 6.5 mmol/L (0.7-2.1)
--- NOTE | 2023-05-28 12:55 | PC.NURSE ---
critical lab notification. lactic of 6.5. dr strickland notified via telephone at this time.
== END 2023-05-28 12:55 | disposition short-term general hospital (02) | DRG 871 ==
PROVIDERS: Nurse Practitioner Family; Admitting Provider Internal Medicine Adolescent Medicine; PCP Nurse Practitioner Family; Visit Provider Internal Medicine Adolescent Medicine
DX: A41.9 Sepsis, unspecified organism (principal); M72.6 Necrotizing fasciitis; R65.21 Severe sepsis with septic shock; I50.30 Unspecified diastolic (congestive) heart failure; I13.2 Hypertensive heart and chronic kidney disease with heart failure and with stage 5 chronic kidney disease, or end stage renal disease; N18.5 Chronic kidney disease, stage 5; I48.11 Longstanding persistent atrial fibrillation; I50.32 Chronic diastolic (congestive) heart failure; L03.116 Cellulitis of left lower limb; E78.00 Pure hypercholesterolemia, unspecified; Z95.5 Presence of coronary angioplasty implant and graft; I25.10 Atherosclerotic heart disease of native coronary artery without angina pectoris; M54.9 Dorsalgia, unspecified; G89.29 Other chronic pain; K21.9 Gastro-esophageal reflux disease without esophagitis; G47.33 Obstructive sleep apnea (adult) (pediatric)
CPT/HCPCS: 36415; 71045; 73700; 80053; 83605; 83735; 85007; 85025; 85610; 87040; 87070; 87077; 87186; 87205; 87636; C9803; J2543; U0003; U0005

== ENCOUNTER 2023-08-29 11:49 | Day surgery (SDC) | payer MEDICARE, OTHER, MEDICAID, SELFPAY ==
[2023-08-29 11:59] VITALS: BP 129/69; PULSE 65; RESP 18; TEMP 36.8; O2SAT 98; BMI 22.7
[2023-08-29 12:14] VITALS: BP 144/78; PULSE 71; RESP 18; O2SAT 97
[2023-08-29 12:15] VITALS: BP 144/78; PULSE 71; RESP 18; O2SAT 97
[2023-08-29 12:25] VITALS: BP 125/73; PULSE 60; RESP 16; O2SAT 98
--- NOTE | 2023-08-29 13:00 | EXP.PAIN.PRO ---
Procedure Date: 08/29/23 Time: 12:30 Anesthesiologist:: A[facility] Plaza CRNA Complications:: None Pre-procedure Diagnosis:: Degenerative disc disease lumbar spine multilevels. Lumbar radiculopathy. Post-procedure Diagnosis:: Same. Indications for Procedure:: Patient is a pleasant 77-year-old female that comes our clinic today for intrathecal pain pump interrogation and refill. Patient currently being managed with morphine sulfate 10 mg/mL at 2.64 mg/day. Patient reports recent extended hospital stay secondary to infection in the lower left leg. Condition required surgical intervention. With subsequent surgeries to follow for skin grafting. Patient's lumbar back pain as well as bilateral hip radicular symptoms seem to be under control. Patient not requesting any changes in her intrathecal pain pump management at this time. Procedure Details:: Details of the procedure explained to the patient. The patient taken the procedure room placed in the sitting position. The area of the pump was cleaned using chlorhexidine as a cleansing solution. The pump was interrogated. The pump was accessed with ease using a 22-gauge inch and half needle. 3 mL of solution was withdrawn and discarded appropriately. The pump was then filled with 20 cc of solution containing morphine sulfate 2 mg/mL. Patient tolerated procedure without difficulty. No complications. Plan and Disposition:: Patient was discharged without incident.
== END 2023-08-29 12:25 | disposition home or self-care (01) ==
LOC: SC.PAINP 11:50
PROVIDERS: PCP Nurse Practitioner Family; Visit Provider Nurse Anesthetist, Certified Registered
DX: M51.16 Intervertebral disc disorders with radiculopathy, lumbar region (principal); Z97.8 Presence of other specified devices
CPT/HCPCS: 95991

== ENCOUNTER 2023-10-17 14:00 | Day surgery (SDC) | payer OTHER, SELFPAY ==
[2023-10-17 14:20] VITALS: BP 119/66; PULSE 71; RESP 16; TEMP 36.4; O2SAT 93; BMI 25.0
--- NOTE | 2023-10-17 14:45 | EXP.PAIN.PRO ---
Procedure Date: 10/17/23 Time: 14:40 Anesthesiologist:: Avery Plaza CRNA Complications:: None Pre-procedure Diagnosis:: Degenerative disc lumbar spine multilevels. Lumbar radiculopathy. Post-procedure Diagnosis:: Same. Indications for Procedure:: Patient is a very pleasant 78-year-old female comes our clinic today for intrathecal pain pump interrogation refill. Patient currently being managed with morphine sulfate 10 mg/mL at a rate of 2.64 mg/day. Patient doing very well with her current settings. She is not requesting any changes today. She does not report any side effects or complications. Procedure Details:: Details of the procedure explained to the patient. Patient taken to procedure room placed in the sitting position. The area of the pump was cleansed using chlorhexidine's cleansing solution. The pump was interrogated. The pump was accessed with ease using a 22-gauge inch and half needle. 6 mL of solution was withdrawn discarded appropriate. The pump was then filled with 20 cc of solution containing morphine sulfate 10 mg/mL. Patient tolerated procedure without difficulty. No complications. Plan and Disposition:: Patient was discharged without incident.
[2023-10-17 14:50] VITALS: BP 119/58; PULSE 65; RESP 18; O2SAT 93
== END 2023-10-17 14:50 | disposition home or self-care (01) ==
PROVIDERS: PCP Emergency Medicine; Visit Provider Nurse Anesthetist, Certified Registered
DX: M51.16 Intervertebral disc disorders with radiculopathy, lumbar region (principal); Z97.8 Presence of other specified devices
CPT/HCPCS: 95991